=== PATIENT | female | born 1950 | race Caucasian/White ===

== ENCOUNTER 2016-08-04 16:11 | Inpatient (IN) | payer OTHER ==
[2016-08-04] VITALS (8 sets, daily range): BP systolic 150–220; BP diastolic 80–120
[~2016-08-04] VITALS: Ht 165.1 cm; Wt 66.8 kg
--- NOTE | ~2016-08-04 | CON ---
[place], [place] REPORT OF CONSULTATION [id number] UNIT #: [id number] ROOM: 401 DOCTOR: AMRIT BUCKLEYDELIOELISHA BIRTHDATE: [birth year] DOS: REQUESTING PHYSICIAN: Dr. De Paz. REASON FOR CONSULTATION: Hypertension, elevated cardiac enzymes. ASSESSMENT: 1. Current presentation with fall, mechanical, no preceding cardiac symptoms. 2. Similar complaint over the past few months of recurrent falls. 3. Elevated cardiac enzymes consistent more with rhabdomyolysis. 4. Slightly elevated troponin. 5. Hypertension. 6. Hyperlipidemia. 7. Active tobacco abuse. 8. Abnormal thyroid function test. PLAN: 1. Continue to cycle cardiac enzymes with 2 more sets. 2. Proceed with echocardiogram. 3. Lopressor 25 mg 1 tab p.o. b.i.d. 4. IV hydration. 5. Ischemic workup will be considered later on and can be done as an outpatient. 6. Management of thyroid. Management of the abnormal TSH will be deferred to Dr. De Paz. 7. Enteric-coated aspirin 81 mg. 8. Consider sleep study. It can be done as an outpatient. 9. Smoking cessation emphasized. 10. Early followup upon discharge within 2-4 weeks in our clinic in [place]. HISTORY OF PRESENT ILLNESS: The patient is a pleasant 66-year-old female unknown to our practice. The patient was brought back in to the hospital after a mechanical fall with tripping. Apparently, the patient had similar complaint about a month ago with recurrent falls and currently being considered for a care home. The patient was living alone ____ by herself. The patient denies at any time any history of chest pain, chest pressure, heaviness, tightness. Never had any jaw pain, left arm pain, or back pain. No symptomatic palpitation or any associated dizziness, lightheadedness or near syncope. No fever, no chills, no night sweats. Maintained good appetite, no weight loss. The patient is active, able to take care of herself. She sleeps on 1 pillow with no reported PND, orthopnea, or pedal edema. Unknown history of snoring. PAST MEDICAL HISTORY: As detailed in my assessment. SOCIAL HISTORY: The patient continued to smoke, has been doing this since she was 9 years old. Previous history of alcohol abuse, but no history of drug abuse. FAMILY HISTORY: There is no early family history of heart disease. [place], [place] REPORT OF CONSULTATION NAME: [facility]OLINA [facility]: [id number] UNIT #: [id number] ROOM: [facility] DOCTOR: LUCHO MARCUS MD BIRTHDATE: [birth year] CURRENT MEDICATIONS: Potassium, vitamin D, Synthroid, aspirin, Procardia, Lovenox, bisacodyl. ALLERGIES: The patient has no known drug allergies. REVIEW OF SYSTEMS: Currently, the patient denies any headache, diplopia or blurry vision. No fever, no chills, no night sweats. No abdominal pain, no bright red blood per rectum or tarry stools. The patient admits to joint pain and muscular pain. No anxiety, no depression. No polyuria, no polydipsia, no skin rash. PHYSICAL EXAMINATION: GENERAL: The patient is alert, oriented x3, quite pleasant. VITAL SIGNS: Blood pressure 158/80, heart rate 74, respiratory rate of 14, temperature 97.3. SUBJECTIVE: The patient completely flat in bed, does not appear in distress. HEENT: Extraocular muscles intact. Pupils equal, round, reactive to light. Conjunctivae: No pallor. Throat: No petechiae. NECK: Good upstroke. Faint bruit could be heard over the right carotid. No lymphadenopathy, no thyromegaly. HEART: S1, S2 with holosystolic murmur in the left upper sternal border. No rub or sternal heave. CHEST AND BACK: No deformities. LUNGS: Clear to auscultation. Decreased air movement. No nena wheezing or rales. ABDOMEN: Obese, soft, nontender. Present bowel sounds. Unable to appreciate any masses or bruits. LOWER EXTREMITIES: There is mild edema with faint distal pulses. NEUROLOGIC: Grossly nonfocal. SKIN: No significant rash. LABORATORY DATA: White count is 9.5, hemoglobin 10.9, potassium 3.3, creatinine 1.07, GFR is 51. Magnesium 1.8, AST 40. Initial CK is 3680, currently 3556. MB 3.9, currently 3.2. Troponin 0.059, currently 0.055; TSH 158, yesterday 178. Free T4 is 0.31. LUCHO MARCUS MD CM:CONSTR:REPORT OF CONSULTATION 1837 08/07/16 0114 interface
--- NOTE | ~2016-08-04 | PR ---
[place], [place] PROGRESS NOTE [facility]: [id number] UNIT #: [id number] ROOM: 401 DOCTOR: LUCHO MARCUS MD BIRTHDATE: [birth year] DOS: 08/07/2016 SUBJECTIVE: The patient is sitting up in chair. Denies any specific cardiac complaint. No chest pain, no dizziness, no shortness of breath. OBJECTIVE: VITAL SIGNS: Blood pressure 160/92, heart rate 71, respiratory rate of 14, temperature 97.6. NECK: Good upstroke, no JVD. HEART: S1, S2. No rub. LUNGS: Clear to auscultation. EXTREMITIES: Lower extremities, no significant edema. LABORATORY DATA: White count 9.5, hemoglobin 10.9. Potassium 3.3, creatinine 1.07, GFR is 51. CPK initially 3556, currently 2133. Troponin 0.055. Echocardiogram showed normal LV function with no wall motion abnormalities, but there is a large pericardial effusion. Still there are no early signs of tamponade. ASSESSMENT AND PLAN: Status post recurrent falls that appear to be preceding with being dizzy. Cardiac enzymes are consistent more with rhabdomyolysis. Still there is some concern about the elevated troponin, but this could be due to the patient's slight renal insufficiency. The echocardiogram showed a concerning finding of a large pericardial effusion, still there are no early signs of tamponade with mitral valve and tricuspid valve flow, but on the apical 4-chamber, the left atrium and the right ventricle in the short axis showing a hint of diastolic collapse. Given these findings, especially as the patient is living on her own, we will transfer the patient to for possible pericardial window. This was discussed with the resident and transfer will be arranged today. In the meantime, continue IV fluid, hold on long-acting blood pressure medication for now. LUCHO MARCUS MD CM:PNTRANS LUCHO MARCUS MD 08/07/16 2347 interface
[2016-08-04] MEDS ORDERED: LIPITOR20 MG PO (16:34)
[2016-08-04] MEDS ORDERED: PROCARDIA XL30 MG PO (16:34)
[2016-08-04] MEDS ORDERED: LEVOTHYROXINE0.1 MG PO (16:35)
[2016-08-04] MEDS ORDERED: HYDROCHLOROTH12.5 M2 PO (16:35)
[2016-08-04] MEDS ORDERED: VITAMIN D22000 UNIT PO (16:36)
[2016-08-04 18:04] LABS: BASO # 0.1 10*3/uL (0.0-0.1); BASO % 0.4 % (0.0-1.0); EOS % 0.2 % (1.0-4.0); HEMATOCRIT 37.9 % (37.0-47.0); HEMOGLOBIN 12.8 g/dl (12.0-16.0); IG # 0.1 10*3/uL (0.0-0.1); LYMPH # 1.9 10*3/uL (1.3-4.4); LYMPH % 15.2 % (27.0-41.0); MEAN CELL VOLUME 99.2 fl (81.0-99.0); MEAN CORPUSCULAR HGB 33.5 pg (27.0-31.0); MEAN CORPUSCULAR HGB CONC 33.8 g/dl (33.0-37.0); MEAN PLATELET VOLUME 10.1 fl (9.6-12.3); MONO # 0.7 10*3/uL (0.1-1.0); MONO % 5.7 % (3.0-9.0); NEUT # 9.8 10*3/uL (2.3-7.9); NEUT % 77.9 % (47.0-73.0); PLATELET COUNT AUTOMATED 264 10*3/uL (130-400); RED BLOOD COUNT 3.82 10*6/uL (4.10-5.10); RED CELL DISTRI WIDTH 14.3 % (0-14.5); WHITE BLOOD COUNT 12.5 10*3/uL (4.8-10.8)
[2016-08-04 18:15] LABS: PROTHROMBIN TIME 10.8 SECONDS (9.0-12.4)
[2016-08-04 18:24] LABS: ALBUMIN 4.2 gm/dl (3.1-4.5); BILIRUBIN, TOTAL 0.6 mg/dl (0.2-1.0); MAGNESIUM 2.4 mg/dL (1.5-2.1); POTASSIUM 3.6 mmol/L (3.5-5.1); TOTAL PROTEIN 7.6 gm/dL (6.4-8.2)
[2016-08-04 18:25] LABS: CKMB 4.8 ng/ml (0.5-3.6)
[2016-08-04 18:27] LABS: TROPONIN I 0.077 ng/ml (<0.045)
[2016-08-04 18:32] LABS: BILIRUBIN NEGATIVE (NEGATIVE); BLOOD 2+ (NEGATIVE); CLARITY CLEAR (CLEAR); COLOR YELLOW (YELLOW); GLUCOSE NEGATIVE (NEGATIVE); KETONE NEGATIVE (NEGATIVE); LEUKO ESTERASE NEGATIVE (NEGATIVE); NITRITE NEGATIVE (NEGATIVE); PROTEIN NEGATIVE (NEGATIVE); UROBILINOGEN 0.2 E.U./dl (0.2-1.0)
[2016-08-04 18:45] LABS: BACTERIA TRACE; URINE REFLEX COMMENT YES (NO)
[2016-08-04 18:46] LABS: EPITHELIAL CELLS 0-2; MUCOUS TRACE; RBC 31-40 rbc/hpf (0-2); WBC 0-2 wbc/hpf (0-5)
[2016-08-05] VITALS: BP 167/77
[2016-08-05 04:00] VITALS: BP 200/108
[2016-08-05 07:29] LABS: BASO % 0.3 % (0.0-1.0); EOS # 0.1 10*3/uL (0.0-0.4); HEMATOCRIT 35.6 % (37.0-47.0); HEMOGLOBIN 12.1 g/dl (12.0-16.0); IG # 0.1 10*3/uL (0.0-0.1); LYMPH # 2.1 10*3/uL (1.3-4.4); LYMPH % 20.4 % (27.0-41.0); MEAN CELL VOLUME 99.4 fl (81.0-99.0); MEAN CORPUSCULAR HGB 33.8 pg (27.0-31.0); MEAN PLATELET VOLUME 10.1 fl (9.6-12.3); MONO # 0.5 10*3/uL (0.1-1.0); MONO % 5.3 % (3.0-9.0); NEUT # 7.4 10*3/uL (2.3-7.9); NEUT % 72.1 % (47.0-73.0); PLATELET COUNT AUTOMATED 242 10*3/uL (130-400); RED BLOOD COUNT 3.58 10*6/uL (4.10-5.10); RED CELL DISTRI WIDTH 14.2 % (0-14.5); WHITE BLOOD COUNT 10.2 10*3/uL (4.8-10.8)
[2016-08-05 07:41] LABS: CKMB 3.6 ng/ml (0.5-3.6)
[2016-08-05 07:47] LABS: TROPONIN I 0.076 ng/ml (<0.045)
[2016-08-05 07:58] LABS: ALBUMIN 3.7 gm/dl (3.1-4.5); MAGNESIUM 2.2 mg/dL (1.5-2.1); POTASSIUM 2.9 mmol/L (3.5-5.1)
[2016-08-05 08:00] VITALS: BP 157/89
[2016-08-05 08:07] LABS: FOLIC ACID 19.49 ng/mL (>5.38)
[2016-08-05 08:24] LABS: BILIRUBIN, TOTAL 0.5 mg/dl (0.2-1.0); FREE T4 0.21 ng/dl (0.76-1.46); PHOSPHOROUS 1.6 mg/dL (2.5-4.9); TOTAL PROTEIN 6.8 gm/dL (6.4-8.2)
[2016-08-05 12:00] VITALS: BP 159/96
[2016-08-05 12:19] LABS: CKMB 3.9 ng/ml (0.5-3.6)
[2016-08-05 12:32] LABS: TROPONIN I 0.059 ng/ml (<0.045)
[2016-08-05 16:00] VITALS: BP 147/82
[2016-08-05 18:17] LABS: CKMB 3.2 ng/ml (0.5-3.6)
[2016-08-05 18:45] LABS: TROPONIN I 0.055 ng/ml (<0.045)
[2016-08-05 20:00] VITALS: BP 162/93
[2016-08-06] VITALS: BP 152/81
[2016-08-06 07:19] LABS: BASO % 0.4 % (0.0-1.0); EOS # 0.1 10*3/uL (0.0-0.4); EOS % 1.5 % (1.0-4.0); HEMATOCRIT 32.8 % (37.0-47.0); HEMOGLOBIN 10.9 g/dl (12.0-16.0); IG # 0.1 10*3/uL (0.0-0.1); LYMPH # 2.9 10*3/uL (1.3-4.4); LYMPH % 30.3 % (27.0-41.0); MEAN CELL VOLUME 100.6 fl (81.0-99.0); MEAN CORPUSCULAR HGB 33.4 pg (27.0-31.0); MEAN CORPUSCULAR HGB CONC 33.2 g/dl (33.0-37.0); MEAN PLATELET VOLUME 10.7 fl (9.6-12.3); MONO # 0.7 10*3/uL (0.1-1.0); MONO % 7.4 % (3.0-9.0); NEUT # 5.6 10*3/uL (2.3-7.9); NEUT % 59.4 % (47.0-73.0); PLATELET COUNT AUTOMATED 239 10*3/uL (130-400); RED BLOOD COUNT 3.26 10*6/uL (4.10-5.10); RED CELL DISTRI WIDTH 14.5 % (0-14.5); WHITE BLOOD COUNT 9.5 10*3/uL (4.8-10.8)
[2016-08-06 07:58] LABS: ALBUMIN 3.2 gm/dl (3.1-4.5); ALKALINE PHOSPHATASE 49 U/L (45-117); BILIRUBIN, TOTAL 0.4 mg/dl (0.2-1.0); BUN 15 mg/dl (7-24); CARBON DIOXIDE 22 mmol/L (21-32); CHLORIDE 109 mmol/L (98-107); EST GLOM FILT AFRICAN AMERICAN > 60 ml/min; GLUCOSE 76 mg/dL (65-99); MAGNESIUM 1.8 mg/dL (1.5-2.1); PHOSPHOROUS 2.6 mg/dL (2.5-4.9); POTASSIUM 3.3 mmol/L (3.5-5.1); SGOT/AST 40 IU/L (3-35); SGPT/ALT 15 U/L (12-78); SODIUM 142 mmol/L (136-145)
[2016-08-06 08:00] VITALS: BP 154/84
[2016-08-06 08:24] LABS: FREE T4 0.31 ng/dl (0.76-1.46)
[2016-08-06 12:00] VITALS: BP 151/81
[2016-08-06 16:00] VITALS: BP 158/80
[2016-08-06 20:00] VITALS: BP 156/87
[2016-08-07] VITALS: BP 150/80
[2016-08-07 06:09] LABS: FREE T4 0.35 ng/dl (0.76-1.46)
[2016-08-07 08:00] VITALS: BP 160/92
[2016-08-07] MEDS ORDERED: ENOXAPARIN40 MG/0.2 SC (10:02)
[2016-08-07] MEDS ORDERED: NOVAPLUS LEVO100 MCG IV (10:02)
[2016-08-07] MEDS ORDERED: METOPROLOL SUCC25 M2 PO (10:02)
[2016-08-07] MEDS ORDERED: ASPIRIN325 MG PO (10:02)
[2016-08-07] MEDS ORDERED: D-1000 185 MG-11 TAB PO (10:02)
== END 2016-08-07 11:08 | disposition short-term general hospital (02) | DRG 64 ==
LOC: ED 16:11 → EDHOLD 19:47 → 4E 19:47
PROVIDERS: Internal Medicine; Registered Nurse; Student in an Organized Health Care Education/Training Program
DX: I63.9 Cerebral infarction, unspecified (principal); N17.0 Acute kidney failure with tubular necrosis; I16.1 Hypertensive emergency; I31.3 Pericardial effusion (noninflammatory); R07.9 Chest pain, unspecified; T79.6XXA Traumatic ischemia of muscle, initial encounter; Z66 Do not resuscitate; I10 Essential (primary) hypertension; E55.9 Vitamin D deficiency, unspecified; E78.5 Hyperlipidemia, unspecified; F17.200 Nicotine dependence, unspecified, uncomplicated; E87.6 Hypokalemia; I16.0 Hypertensive urgency; W19.XXXA Unspecified fall, initial encounter; E78.1 Pure hyperglyceridemia; E03.9 Hypothyroidism, unspecified; Z91.19 Patient's noncompliance with other medical treatment and regimen; Z71.6 Tobacco abuse counseling; Z79.899 Other long term (current) drug therapy; Z82.49 Family history of ischemic heart disease and other diseases of the circulatory system; Z81.1 Family history of alcohol abuse and dependence; Y93.89 Activity, other specified; Y92.098 Other place in other non-institutional residence as the place of occurrence of the external cause; Y99.8 Other external cause status

== ENCOUNTER 2016-10-04 14:35 | Inpatient (IN) | payer OTHER ==
[~2016-10-04] VITALS: Ht 162.5 cm; Wt 50.8 kg
[~2016-10-04 14:35] MED LIST: ASPIRIN325 MG PO; D-1000 185 MG-11 TAB PO; ENOXAPARIN40 MG/0.2 SC; HYDROCHLOROTH12.5 M2 PO; LEVOTHYROXINE0.1 MG PO; LIPITOR20 MG PO; METOPROLOL SUCC25 M2 PO; NOVAPLUS LEVO100 MCG IV; PROCARDIA XL30 MG PO; VITAMIN D22000 UNIT PO
[2016-10-04 15:10] VITALS: BP 195/95
[2016-10-04 15:29] LABS: BASO # 0.1 10*3/uL (0.0-0.1); BASO % 0.4 % (0.0-1.0); EOS # 0.1 10*3/uL (0.0-0.4); EOS % 0.6 % (1.0-4.0); HEMATOCRIT 33.6 % (37.0-47.0); HEMOGLOBIN 10.7 g/dl (12.0-16.0); IG # 0.2 10*3/uL (0.0-0.1); LYMPH # 2.1 10*3/uL (1.3-4.4); LYMPH % 17.5 % (27.0-41.0); MEAN CELL VOLUME 89.4 fl (81.0-99.0); MEAN CORPUSCULAR HGB 28.5 pg (27.0-31.0); MEAN CORPUSCULAR HGB CONC 31.8 g/dl (33.0-37.0); MEAN PLATELET VOLUME 9.9 fl (9.6-12.3); MONO % 8.4 % (3.0-9.0); NEUT # 8.5 10*3/uL (2.3-7.9); NEUT % 71.8 % (47.0-73.0); PLATELET COUNT AUTOMATED 436 10*3/uL (130-400); RED BLOOD COUNT 3.76 10*6/uL (4.10-5.10); RED CELL DISTRI WIDTH 15.7 % (0-14.5); WHITE BLOOD COUNT 11.9 10*3/uL (4.8-10.8)
[2016-10-04 15:38] LABS: PROTHROMBIN TIME 10.7 SECONDS (9.0-12.4)
[2016-10-04 15:46] LABS: ALBUMIN 3.3 gm/dl (3.1-4.5); BILIRUBIN, TOTAL 0.4 mg/dl (0.2-1.0); C-REACTIVE PROTEIN 0.66 MG/DL (0-0.3); CKMB 0.6 ng/ml (0.5-3.6); MAGNESIUM 1.9 mg/dL (1.5-2.1); TOTAL PROTEIN 7.3 gm/dL (6.4-8.2); TROPONIN I 0.023 ng/ml (<0.045)
[2016-10-04 16:23] LABS: BILIRUBIN NEGATIVE (NEGATIVE); BLOOD 2+ (NEGATIVE); CLARITY CLEAR (CLEAR); COLOR YELLOW (YELLOW); GLUCOSE NEGATIVE (NEGATIVE); KETONE 1+ (NEGATIVE); LEUKO ESTERASE NEGATIVE (NEGATIVE); NITRITE NEGATIVE (NEGATIVE); PROTEIN 1+ (NEGATIVE)
[2016-10-04 16:50] LABS: BACTERIA TRACE; HYALINE CAST 0-2; URINE REFLEX COMMENT YES (NO)
[2016-10-04 17:55] VITALS: BP 177/91
[2016-10-04] MEDS ORDERED: Synthroid,Lev125 MCG PO (18:10)
[2016-10-04] MEDS ORDERED: PROCARDIA XL90 MG PO (18:11)
[2016-10-04] MEDS ORDERED: TOPROL XL25 MG PO (18:11)
[2016-10-04 20:00] VITALS: BP 169/79
[2016-10-05] VITALS: BP 130/69
[2016-10-05 06:50] LABS: BASO % 0.3 % (0.0-1.0); EOS # 0.2 10*3/uL (0.0-0.4); EOS % 1.7 % (1.0-4.0); HEMOGLOBIN 9.3 g/dl (12.0-16.0); IG # 0.2 10*3/uL (0.0-0.1); LYMPH # 2.1 10*3/uL (1.3-4.4); LYMPH % 21.1 % (27.0-41.0); MEAN CELL VOLUME 91.5 fl (81.0-99.0); MEAN CORPUSCULAR HGB 28.4 pg (27.0-31.0); MEAN PLATELET VOLUME 9.5 fl (9.6-12.3); MONO # 0.9 10*3/uL (0.1-1.0); MONO % 9.4 % (3.0-9.0); NEUT # 6.5 10*3/uL (2.3-7.9); NEUT % 65.8 % (47.0-73.0); PLATELET COUNT AUTOMATED 368 10*3/uL (130-400); RED BLOOD COUNT 3.28 10*6/uL (4.10-5.10); RED CELL DISTRI WIDTH 15.8 % (0-14.5); WHITE BLOOD COUNT 9.9 10*3/uL (4.8-10.8)
[2016-10-05 07:00] LABS: ALBUMIN 2.7 gm/dl (3.1-4.5); BILIRUBIN, TOTAL 0.2 mg/dl (0.2-1.0); MAGNESIUM 1.8 mg/dL (1.5-2.1); PHOSPHOROUS 4.1 mg/dL (2.5-4.9); POTASSIUM 2.7 mmol/L (3.5-5.1); TOTAL PROTEIN 5.8 gm/dL (6.4-8.2)
[2016-10-05 08:00] VITALS: BP 144/78
[2016-10-05 08:09] LABS: THYROID STIM HORMONE (HS) 0.48 uIU/ml (0.358-4.75)
[2016-10-05 12:00] VITALS: BP 154/79
[2016-10-05 16:00] VITALS: BP 119/62
[2016-10-05 20:00] VITALS: BP 144/65
[2016-10-06] VITALS: BP 151/66
[2016-10-06 06:21] LABS: BASO # 0.1 10*3/uL (0.0-0.1); BASO % 0.6 % (0.0-1.0); EOS # 0.3 10*3/uL (0.0-0.4); HEMATOCRIT 32.1 % (37.0-47.0); HEMOGLOBIN 9.7 g/dl (12.0-16.0); IG # 0.2 10*3/uL (0.0-0.1); LYMPH # 1.9 10*3/uL (1.3-4.4); MEAN CELL VOLUME 92.8 fl (81.0-99.0); MEAN CORPUSCULAR HGB CONC 30.2 g/dl (33.0-37.0); MONO # 0.8 10*3/uL (0.1-1.0); MONO % 9.5 % (3.0-9.0); NEUT # 5.6 10*3/uL (2.3-7.9); NEUT % 63.2 % (47.0-73.0); PLATELET COUNT AUTOMATED 406 10*3/uL (130-400); RED BLOOD COUNT 3.46 10*6/uL (4.10-5.10); RED CELL DISTRI WIDTH 16.1 % (0-14.5); WHITE BLOOD COUNT 8.8 10*3/uL (4.8-10.8)
[2016-10-06 06:35] LABS: HEMOGLOBIN A1c 4.8 % (4.8-5.6)
[2016-10-06 06:42] LABS: POTASSIUM 3.3 mmol/L (3.5-5.1)
[2016-10-06 08:00] VITALS: BP 145/63
[2016-10-06 12:00] VITALS: BP 150/77
[2016-10-06 16:00] VITALS: BP 152/82
[2016-10-06 20:00] VITALS: BP 186/74
[2016-10-07] VITALS: BP 186/74; BP 189/87
[2016-10-07 04:00] VITALS: BP 165/82
[2016-10-07 06:50] LABS: BASO % 0.3 % (0.0-1.0); EOS # 0.3 10*3/uL (0.0-0.4); HEMATOCRIT 28.8 % (37.0-47.0); HEMOGLOBIN 8.9 g/dl (12.0-16.0); IG # 0.1 10*3/uL (0.0-0.1); LYMPH # 1.8 10*3/uL (1.3-4.4); LYMPH % 20.9 % (27.0-41.0); MEAN CELL VOLUME 93.5 fl (81.0-99.0); MEAN CORPUSCULAR HGB 28.9 pg (27.0-31.0); MEAN CORPUSCULAR HGB CONC 30.9 g/dl (33.0-37.0); MEAN PLATELET VOLUME 9.8 fl (9.6-12.3); MONO # 0.9 10*3/uL (0.1-1.0); MONO % 9.9 % (3.0-9.0); NEUT # 5.6 10*3/uL (2.3-7.9); NEUT % 64.8 % (47.0-73.0); PLATELET COUNT AUTOMATED 367 10*3/uL (130-400); RED BLOOD COUNT 3.08 10*6/uL (4.10-5.10); RED CELL DISTRI WIDTH 16.1 % (0-14.5); WHITE BLOOD COUNT 8.7 10*3/uL (4.8-10.8)
[2016-10-07 07:23] LABS: MAGNESIUM 1.6 mg/dL (1.5-2.1); POTASSIUM 3.8 mmol/L (3.5-5.1)
[2016-10-07 08:00] VITALS: BP 166/80
[2016-10-07] MEDS ORDERED: SIMVASTATIN20 MG PO (12:53)
== END 2016-10-07 13:56 | disposition home health service (06) | DRG 682 ==
LOC: ED 14:35 → 5E 17:18 → EDHOLD 17:18 → 5E 17:43
PROVIDERS: Emergency Medicine; Family Medicine; Internal Medicine; Internal Medicine Hospice and Palliative Medicine
DX: N17.0 Acute kidney failure with tubular necrosis (principal); E43 Unspecified severe protein-calorie malnutrition; I50.32 Chronic diastolic (congestive) heart failure; I11.0 Hypertensive heart disease with heart failure; I31.3 Pericardial effusion (noninflammatory); I69.354 Hemiplegia and hemiparesis following cerebral infarction affecting left non-dominant side; E86.0 Dehydration; N30.01 Acute cystitis with hematuria; I16.1 Hypertensive emergency; Z68.1 Body mass index [BMI] 19.9 or less, adult; E55.9 Vitamin D deficiency, unspecified; Z66 Do not resuscitate; Z51.5 Encounter for palliative care; I10 Essential (primary) hypertension; E78.5 Hyperlipidemia, unspecified; R29.6 Repeated falls; E03.9 Hypothyroidism, unspecified; E87.6 Hypokalemia; D47.3 Essential (hemorrhagic) thrombocythemia; D64.9 Anemia, unspecified; F17.210 Nicotine dependence, cigarettes, uncomplicated; Z79.899 Other long term (current) drug therapy; Z81.1 Family history of alcohol abuse and dependence; Z82.49 Family history of ischemic heart disease and other diseases of the circulatory system

== ENCOUNTER → 2016-11-10 | Outpatient (CLI) | payer OTHER ==
[~2016-11-10] MED LIST changes: +PROCARDIA XL90 MG PO; +SIMVASTATIN20 MG PO; +Synthroid,Lev125 MCG PO; +TOPROL XL25 MG PO
== END | disposition home or self-care (01) ==
LOC: US 12:28
DX: I65.23 Occlusion and stenosis of bilateral carotid arteries (principal)

== ENCOUNTER 2016-12-12 22:44 | Inpatient (IN) | payer OTHER ==
[~2016-12-12] VITALS: Ht 162.5 cm; Wt 49.9 kg
[2016-12-12 22:51] VITALS: BP 147/78
[2016-12-12 23:37] LABS: BILIRUBIN NEGATIVE (NEGATIVE); BLOOD 3+ (NEGATIVE); CLARITY SL CLOUDY (CLEAR); COLOR YELLOW (YELLOW); GLUCOSE NEGATIVE (NEGATIVE); KETONE NEGATIVE (NEGATIVE); LEUKO ESTERASE TRACE (NEGATIVE); NITRITE NEGATIVE (NEGATIVE); PH 5.5 (5.0-9.0); UROBILINOGEN 0.2 E.U./dl (0.2-1.0)
[2016-12-12 23:47] LABS: BACTERIA 3+; EPITHELIAL CELLS 25-30; RBC TNTC rbc/hpf (0-2)
[2016-12-12 23:53] LABS: HEMATOCRIT 31.9 % (37.0-47.0); HEMOGLOBIN 10.2 g/dl (12.0-16.0); MEAN CELL VOLUME 84.8 fl (81.0-99.0); MEAN CORPUSCULAR HGB 27.1 pg (27.0-31.0); MEAN PLATELET VOLUME 9.3 fl (9.6-12.3); PLATELET COUNT AUTOMATED 601 10*3/uL (130-400); RED BLOOD COUNT 3.76 10*6/uL (4.10-5.10); RED CELL DISTRI WIDTH 15.4 % (0-14.5); WHITE BLOOD COUNT 19.1 10*3/uL (4.8-10.8)
[2016-12-13 00:11] LABS: INTERNATIONAL NORM RATIO 0.9 (2.0-3.5)
[2016-12-13 00:12] LABS: ALBUMIN 2.5 gm/dl (3.1-4.5); ALKALINE PHOSPHATASE 95 U/L (45-117); BUN 35 mg/dl (7-24); CHLORIDE 99 mmol/L (98-107); CREATININE 1.98 mg/dL (0.55-1.02); LIPASE 76 U/L (73-393); POTASSIUM 2.9 mmol/L (3.5-5.1); SGOT/AST 11 IU/L (3-35); SGPT/ALT 11 U/L (12-78); SODIUM 133 mmol/L (136-145); TOTAL PROTEIN 6.3 gm/dL (6.4-8.2)
[2016-12-13 00:13] LABS: TROPONIN I < 0.015 ng/ml (<0.045)
[2016-12-13 00:17] LABS: PLATELET SUFFICIENCY HIGH (NORMAL); TOTAL CELLS COUNTED 100 #CELLS
[2016-12-13 00:18] LABS: BURR CELLS FEW; POLYCHROMASIA SLIGHT
[2016-12-13 02:15] VITALS: BP 166/86
--- NOTE | 2016-12-13 02:18 | NUR ---
A 66, admitted to , under the services of ZULEIKA Ambrosio DO with a diagnosis of COLITIS. Chief complaint is WEAKNESS. Patient arrived via stretcher from ER. Monitor applied. Initial assessment completed. Vital signs taken and recorded. ZULEIKA AMBROSIO DO notified of admission to the unit. Orders received. See assessment for past medical history, medications and allergies. Patient and/or family oriented to unit. [facility] visitation policy reviewed. Clothing/patient valuable form completed. HARJINDER WESTFALL
--- NOTE | 2016-12-13 02:18 | NUR ---
MED REC UPDATED WITH SISTER AND NIECE.
--- NOTE | 2016-12-13 02:47 | NUR ---
DR MENON AWARE OF PATIENT'S SKIN TEAR. NO ORDERS
[2016-12-13] MEDS ORDERED: ASPIRIN ADULT L81 M2 PO (02:49)
[2016-12-13] MEDS ORDERED: VITAMIN D-32000 UNI1 PO (02:49)
[2016-12-13] MEDS ORDERED: FERROUS SULFAT325 MG PO (02:50)
[2016-12-13] MEDS ORDERED: POTASSIUM CHLO10 ME4 PO (03:00)
--- NOTE | 2016-12-13 03:35 | NUR ---
SPOKE WITH KARTIK ABOUT PATIENT'S CODE STATUS. SISTER STATES THAT PATIENT IS A COMFORT CARE ARREST, NO INTUBATION, NO ACLS.
[2016-12-13 06:07] LABS: BASO % 0.3 % (0.0-1.0); EOS # 0.1 10*3/uL (0.0-0.4); EOS % 0.8 % (1.0-4.0); HEMATOCRIT 32.2 % (37.0-47.0); HEMOGLOBIN 10.2 g/dl (12.0-16.0); LYMPH # 1.6 10*3/uL (1.3-4.4); LYMPH % 10.6 % (27.0-41.0); MEAN CELL VOLUME 87.5 fl (81.0-99.0); MEAN CORPUSCULAR HGB 27.7 pg (27.0-31.0); MEAN CORPUSCULAR HGB CONC 31.7 g/dl (33.0-37.0); MEAN PLATELET VOLUME 9.5 fl (9.6-12.3); MONO # 1.2 10*3/uL (0.1-1.0); MONO % 7.7 % (3.0-9.0); NEUT # 11.8 10*3/uL (2.3-7.9); NEUT % 79.1 % (47.0-73.0); PLATELET COUNT AUTOMATED 586 10*3/uL (130-400); RED BLOOD COUNT 3.68 10*6/uL (4.10-5.10); RED CELL DISTRI WIDTH 15.3 % (0-14.5); WHITE BLOOD COUNT 14.9 10*3/uL (4.8-10.8)
[2016-12-13 06:37] LABS: ALBUMIN 2.2 gm/dl (3.1-4.5); MAGNESIUM 1.9 mg/dL (1.5-2.1)
[2016-12-13 06:47] LABS: ACT PARTIAL THROMBO TIME 26.6 SECONDS (20.8-31.5); INTERNATIONAL NORM RATIO 0.9 (2.0-3.5)
[2016-12-13 06:48] LABS: CREATININE 2.17 mg/dL (0.55-1.02); FREE T4 2.53 ng/dl (0.76-1.46); PHOSPHOROUS 3.4 mg/dL (2.5-4.9); THYROID STIM HORMONE (HS) 0.13 uIU/ml (0.358-4.75); TOTAL PROTEIN 5.7 gm/dL (6.4-8.2)
[2016-12-13 07:47] LABS: VITAMIN D, 25-HYDROXY 41.5 ng/mL (30-100)
[2016-12-13 08:00] VITALS: BP 162/78
[2016-12-13 12:00] VITALS: BP 142/60; BP 176/82
--- NOTE | 2016-12-13 12:00 | NUR ---
PATIENT RESTING AT THIS TIME WITH FAMILY PRESENT. DENIES ANY NEEDS. CALL LIGHT IN REACH.
[2016-12-13 16:00] VITALS: BP 160/80
[2016-12-13 20:00] VITALS: BP 177/82
[2016-12-14] VITALS (7 sets, daily range): BP systolic 148–180; BP diastolic 64–90
--- NOTE | 2016-12-14 00:37 | NUR ---
MANUAL BP OBTAINED, 180/90. DR. MENON NOTIFIED. ORDERS RECEIVED.
--- NOTE | 2016-12-14 02:05 | NUR ---
PT C/O BACK PAIN, RATING IT A 7/10. PT REPOSITIONED, INEFFECTIVE. DILAUDID ADMINISTERED VIA IV. WILL MONITOR FOR EFFECTIVENESS. CALL LIGHT IN REACH.
--- NOTE | 2016-12-14 03:05 | NUR ---
DILAUDID EFFECTIVE PER PT. PT STATES THAT SHE HAS NO PAIN AT THIS TIME, CALL LIGHT IN REACH.
--- NOTE | 2016-12-14 03:21 | NUR ---
24 HR chart check completed.
[2016-12-14 06:08] LABS: ALBUMIN 1.9 gm/dl (3.1-4.5); CREATININE 2.49 mg/dL (0.55-1.02); MAGNESIUM 1.8 mg/dL (1.5-2.1); PHOSPHOROUS 3.1 mg/dL (2.5-4.9); POTASSIUM 2.9 mmol/L (3.5-5.1); TOTAL PROTEIN 5.1 gm/dL (6.4-8.2)
[2016-12-14 06:15] LABS: BASO # 0.1 10*3/uL (0.0-0.1); BASO % 0.4 % (0.0-1.0); EOS # 0.3 10*3/uL (0.0-0.4); EOS % 1.9 % (1.0-4.0); HEMATOCRIT 29.5 % (37.0-47.0); HEMOGLOBIN 9.4 g/dl (12.0-16.0); LYMPH # 1.8 10*3/uL (1.3-4.4); LYMPH % 13.7 % (27.0-41.0); MEAN CELL VOLUME 87.3 fl (81.0-99.0); MEAN CORPUSCULAR HGB 27.8 pg (27.0-31.0); MEAN CORPUSCULAR HGB CONC 31.9 g/dl (33.0-37.0); MEAN PLATELET VOLUME 9.5 fl (9.6-12.3); MONO # 1.4 10*3/uL (0.1-1.0); MONO % 10.2 % (3.0-9.0); NEUT # 9.7 10*3/uL (2.3-7.9); NEUT % 71.9 % (47.0-73.0); PLATELET COUNT AUTOMATED 592 10*3/uL (130-400); RED BLOOD COUNT 3.38 10*6/uL (4.10-5.10); RED CELL DISTRI WIDTH 15.5 % (0-14.5); WHITE BLOOD COUNT 13.4 10*3/uL (4.8-10.8)
--- NOTE | 2016-12-14 06:30 | NUR ---
CT NOTIFIED THIS NURSE THAT PT COULD NOT HAVE IV CONTRAST FOR CT OF ABDOMEN AND PELVIS DUE TO CREATININE LEVEL. DR. MENON NOTIFIED AND CANCELED CT. STATES THAT HE WOULD LIKE US TO MONITOR PT BP AND BACK PAIN THROUGHOUT DAY. NOTIFIED DR. MENON OF POTASSIUM LEVEL OF 2.9. ORDERS RECEIVED.
--- NOTE | 2016-12-14 18:06 | NUR ---
PT REFUSES TO GET OOB TO A CHAIR
[2016-12-14] MEDS ORDERED: Synthroid,Lev100 MCG PO (19:38)
--- NOTE | 2016-12-14 19:38 | NUR ---
SPOKE TO DR. RAI AT THIS TIME REGARDING CALL FROM [facility] STATING THAT THEY HAVE A BED AND ACCEPTING DOCTOR FOR THIS PT. ACCORDING TO DR. RAI, THIS IS FOR A UROLOGY CONSULT AND THAT HE WILL PUT D/C ORDERS IN.
--- NOTE | 2016-12-14 19:58 | NUR ---
@1944 SPOKE WITH PT. REGARDING TRANSFER. PT. STATED THAT NOBODY DISCUSSED A TRANSFER WITH HER AT ALL TODAY, AND SHE IS REFUSING TO BE TRANSFERRED AT NIGHT. @[address] RAI TO DISCUSS PTS. FEELINGS TOWARDS D/C. DR. RAI STATED THAT SHE COULD LOSE THE BED IF SHE DOES NOT GO TONIGHT. @1954 PT. WAS TOLD THAT SHE COULD LOSE THE BED IF SHE DID NOT GO TONIGHT. PT. HAD THIS NURSE CONTACT HER SISTER TO DISCUSS THIS NEWS. PTS. SISTER WAS NOT AWARE OF D/C EITHER. PTS. SISTER STATED SHE WILL BE DOWN SHORTLY. PT. STATED SHE WOULD WAIT UNTIL HER SISTER CAME TO DECIDE IF SHE WOULD GO TONIGHT OR NOT.
--- NOTE | 2016-12-14 20:00 | NUR ---
PT. AWAKE, ALERT AND ORIENTED X 3. PT. IN BED AT THIS TIME. PT. CURRENTLY DENIES CP, SOB, AND PAIN AT THIS TIME. CALL LIGHT WITHIN REACH, BED IN LOWEST POSITION, WHEELS LOCKED. SEE SHIFT ASSESSMENT.
--- NOTE | 2016-12-14 22:10 | NUR ---
GAVE REPORT TO [place] AT [facility]
== END 2016-12-14 22:10 | disposition short-term general hospital (02) | DRG 871 ==
LOC: ED 22:44 → 4E 12-13 00:52 → EDHOLD 12-13 00:52 → 4E 12-13 01:18
PROVIDERS: Hospitalist; Physician Assistant; ADMIT Internal Medicine
DX: A41.9 Sepsis, unspecified organism (principal); N17.0 Acute kidney failure with tubular necrosis; E43 Unspecified severe protein-calorie malnutrition; I50.32 Chronic diastolic (congestive) heart failure; I11.0 Hypertensive heart disease with heart failure; E86.0 Dehydration; E87.1 Hypo-osmolality and hyponatremia; N39.0 Urinary tract infection, site not specified; Z68.1 Body mass index [BMI] 19.9 or less, adult; Z66 Do not resuscitate; Z51.5 Encounter for palliative care; R65.20 Severe sepsis without septic shock; K52.9 Noninfective gastroenteritis and colitis, unspecified; E78.5 Hyperlipidemia, unspecified; E87.6 Hypokalemia; D47.3 Essential (hemorrhagic) thrombocythemia; D64.9 Anemia, unspecified; R29.6 Repeated falls; E55.9 Vitamin D deficiency, unspecified; Z87.891 Personal history of nicotine dependence; Z82.49 Family history of ischemic heart disease and other diseases of the circulatory system; Z79.82 Long term (current) use of aspirin; Z79.899 Other long term (current) drug therapy; Z86.73 Personal history of transient ischemic attack (TIA), and cerebral infarction without residual deficits

== ENCOUNTER 2017-01-25 11:01 | Inpatient (IN) | payer OTHER ==
[~2017-01-25] VITALS: Ht 152.4 cm; Wt 46.5 kg
--- NOTE | ~2017-01-25 | PR ---
[place], [place] PROGRESS NOTE NAME: DOV MOLINA UNIT #: [id number] ROOM: 518 DOCTOR: ABIEL DASH MD BIRTHDATE: [birth year] DOS: 01/27/2017 SUBJECTIVE: The patient states her diarrhea is stopping now and no abdominal pains. The patient is still feeling very weak, but starting to eat slightly better. OBJECTIVE: VITAL SIGNS: Blood pressure 131/77, heart rate 86 beats per minute, breathing 20 times per minute, temperature of 98 degrees Fahrenheit. GENERAL APPEARANCE: The patient is alert and oriented x 3, in no visible distress, except for generalized weakness. HEENT AND NECK: Exam within normal limits. CARDIOVASCULAR SYSTEM: Heart rate is regular in rate and rhythm. S1 and S2 normally audible. LUNGS: Clear to auscultation. ABDOMEN: Soft, nontender. No obvious organomegaly. Bowel sounds are present. EXTREMITIES: Without significant cyanosis or edema. IMPRESSION 0: 1. Acute Clostridium difficile colitis with improving diarrhea. No leukocytosis. Continue her vancomycin and Flagyl. This appears to be the first recurrence of Clostridium difficile colitis. 2. Generalized weakness and disability. The patient requires fci placement. She was living at home with her sister. 3. Severe hypokalemia related to diarrhea, improving with supplements and improvement in diarrhea. 4. Severe protein calorie malnutrition and adult failure to thrive with suboptimal prognosis. Palliative care consult was obtained. 5. Anemia of chronic disease. Hemoglobin stable. 6. Sepsis from Clostridium difficile colitis with elevation of lactic acid level, leukocytosis, hypokalemia and acute kidney failure, all improving. 7. Chronic diastolic type congestive heart failure, compensated. 8. Urinary tract infection with Klebsiella pneumoniae and Enterococcus faecalis, to be treated with ciprofloxacin. The patient's Rocephin was discontinued. [place], [place] PROGRESS NOTE NAME: DOV MOLINA UNIT #: [id number] ROOM: 518 DOCTOR: ABIEL DASH MD BIRTHDATE: [birth year] ABIEL DASH MD CM:PNTRANS [id number] ABIEL DASH MD 01/27/17 1128 interface
--- NOTE | ~2017-01-25 | CON ---
[place], [place] REPORT OF CONSULTATION [id number] #: [id number] ROOM: 518 DOCTOR: GALILEO BUCKLEY,SHARA BIRTHDATE: [birth year] DOS: 01/25/2017 This note is an addendum to the note dictated by Dr. Hudson Carvalho. I personally examined and assessed the patient today. Past medical history, medications and allergies reviewed and I personally examined and assessed the patient. The case was discussed with the physician, Dr. Carvalho. Dr. Carvalho's examination, assessment and recommendations reflects my work. The patient was admitted for generalized weakness, decreased intake and diarrhea and Cardiology was consulted for elevated troponin and also edema. She has history of hypertension, anemia, TIA, recent pericardial window, noncompliance with medications. She was treated with intravenous IV fluids due to possible dehydration. PHYSICAL EXAMINATION: The patient is alert. Denies any chest pain or shortness of breath. There are few basilar rales. The patient had about 2 to 3+ pitting edema. HEART: Showed regular rhythm. No significant murmurs. No palpable thrills. DIAGNOSTIC IMPRESSION: Includes: 1. Chronic diastolic heart failure. 2. Dehydration. 3. Diarrhea, rule out Clostridium difficile diarrhea. 4. Recent pericardial window for pericardial effusion. 5. Anasarca. 6. History of transient ischemic attack. 7. History of noncompliance. RECOMMENDATIONS: 1. Continue IV fluids. 2. I would consider starting diuretics tomorrow. Today, she appears to be clinically dehydrated and she is third spacing her fluids due to low albumin. 3. No further cardiac testing and discussed with her family member who is at bedside. This note is again an addendum to the note dictated by the resident physician, Dr. Hudson Carvalho. SHARA GURROLA MD CM:CONSTR:REPORT OF CONSULTATION 2217 01/27/17 0228 interface
--- NOTE | ~2017-01-25 | PR ---
[place], [place] PROGRESS NOTE NAME: DOV MOLINA UNIT #: [id number] ROOM: 518 DOCTOR: JONAS JACKSON MD BIRTHDATE: [birth year] DOS: SUBJECTIVE: The patient continues to have diarrhea. OBJECTIVE: VITAL SIGNS: Blood pressure is 134/61, pulse of 83, respirations 20, temperature 98.3. LUNGS: Clear. HEART: Regular. ABDOMEN: Soft. EXTREMITIES: Without any edema. ASSESSMENT AND PLAN: 1. Clostridium difficile diarrhea on p.o. vancomycin. 2. Severe hypokalemia supplementation, both IV and p.o. has been ordered. 3. Urinary tract infection with Enterococcus faecalis and Klebsiella pneumoniae covered by Levaquin, which is continued. 4. Adult failure to thrive, to consider fpc placement. 5. Acute kidney injury with prerenal azotemia, which is slowly improving with fluids. Lomotil was ordered. Discussed with nursing staff. JONAS JACKSON MD CM:PNTRANS [id number] JONAS JACKSON MD 01/29/17 0938 interface
--- NOTE | ~2017-01-25 | EKG ---
[place], [place] ELECTROCARDIOGRAM REPORT NAME: DOV MOLINA UNIT #: [id number] ROOM: 518 DOCTOR: GALILEO BUCKLEY,SHARA BIRTHDATE: [birth year] DOS: 01/25/2017 TIME: 11:33 a.m. IMPRESSION: 1. Sinus rhythm. 2. Anterior ST-T changes, nondiagnostic. 3. Old inferior infarction. 4. Prolonged QT interval. 5. Baseline artifacts. SHARA GURROLA MD CM:EKGRPT:ELECTROCARDIOGRAM REPORT 1225 1234 SHARA GURROLA MD
--- NOTE | ~2017-01-25 | PR ---
[place], [place] PROGRESS NOTE NAME: DOV MOLINA UNIT #: [id number] ROOM: 518 DOCTOR: LUCHO MARCUS MD BIRTHDATE: [birth year] DOS: 01/29/2017 ATTESTATION. The note was dictated by Dr. Cruz , he is with [facility]. If you can use the attestation note template please. LUCHO MARCUS MD CM:PNTRANS [phone] LUCHO MARCUS MD 01/29/17 1258 interface
--- NOTE | ~2017-01-25 | WRIGHTHP ---
[place], [place] PATIENT HISTORY AND PHYSICAL EXAM NAME: DOV MOLINA [facility] #: [id number] UNIT #: [id number] ROOM: 518 DOCTOR: ABIEL DASH MD BIRTHDATE: [birth year] DOS: 01/25/2017 HISTORY OF PRESENT ILLNESS: The patient is a 66-year-old female with a past medical history of chronic diastolic type CHF, hypertension, hyperlipidemia, multiple falls, adult failure to thrive, history of pericardial effusion, severe hypothyroidism, severe protein-calorie malnutrition, nicotine smoke dependence, vitamin D deficiency. The patient presented to the Emergency Department at [facility] with complaints of diarrhea and weakness for 2 months, some shortness of breath and leg edema. The patient also had some increased shortness of breath, but no abdominal pains, no chest pains. In the ER, the patient was found to have severe hypokalemia. She was suspected to have sepsis and recommended for admission and further management with leukocytosis of 13,800, low potassium of 2.0, lactic acid level elevated to 3.5 with BNP of 26,000. The patient was admitted and found to have severe diarrhea and she turned out to be positive for C. diff toxin. Very weak with increasing weakness with diarrhea, normally lives at home with help of her sister. The patient was found to be in acute renal failure with BUN and creatinine elevated to 57 and 1.9. REVIEW OF SYSTEMS: LUNGS: Some increasing shortness of breath. GASTROINTESTINAL: Persistent diarrhea for 2 months. CARDIOVASCULAR: No chest pains or palpitations. SOCIAL HISTORY: History of smoking cigarettes. Denies any alcohol or drug abuse. FAMILY HISTORY: Noncontributory. HOME MEDICATIONS: The patient takes nifedipine, metoprolol, aspirin and levothyroxine. PHYSICAL EXAMINATION: GENERAL: Awake, alert, oriented x 3, in no visible distress, but very weak. HEENT AND NECK: Extraocular movements are intact. Sclerae are anicteric. Oral mucosa is moist and clean. No obvious facial weakness. Neck is supple without any lymphadenopathy. No thyromegaly. No JVD. No carotid arterial bruits. LUNGS: Clear to auscultation. No wheezing. No rhonchi. CARDIOVASCULAR SYSTEM: Heart rate is regular in rate and rhythm. S1 and S2 normally audible. No significant murmur or any other abnormal cardiac sounds. ABDOMEN: Soft, nontender. No obvious organomegaly. Bowel sounds are present. No obvious herniation. EXTREMITIES: Without significant cyanosis or edema. Warm to touch. CENTRAL NERVOUS SYSTEM: Alert and oriented x 3. Cranial nerves II-XII are intact. Speech is normal. The patient is able to move all extremities. Normal muscle strength. Deep tendon reflexes are equal on both sides. Plantars were downgoing. LABORATORY DATA: Potassium level of 2 has improved to 2.3 with extra potassium [place], [place] PATIENT HISTORY AND PHYSICAL EXAM NAME: DOV MOLINA UNIT #: [id number] ROOM: 518 DOCTOR: ABIEL DASH MD BIRTHDATE: [birth year] supplements. Albumin level low at 1.8. Lactic acid level was up at 3.5, improved to 1.9 with treatment, BUN and creatinine elevated to 57 and 1.9, improved to 55 and 1.6 with hydration. IMPRESSION: 1. Acute Clostridium difficile colitis with persistent diarrhea is being now treated with Flagyl and vancomycin. 2. The patient's leukocytosis from Clostridium difficile colitis has resolved with antibiotic treatment. 3. Severe hypokalemia from diarrhea is being replaced with oral potassium chloride, which is being tolerated very well. 4. Severe protein calorie malnutrition and adult failure to thrive. The patient to work with Physical Therapy and we are taking bedsore precautions. I will also get a palliative care consult. The patient has a DNR/arrest code status. 5. Anemia of chronic disease with hemoglobin of 8.4, to be followed. The patient's drop in hemoglobin appears to be from dilution of the blood because of hydration. 6. Sepsis from Clostridium difficile colitis, elevation of lactic acid level, leukocytosis, hypokalemia and acute kidney failure to be followed and treated. 6. Chronic diastolic type congestive heart failure, compensated. 7. Severe protein calorie malnutrition. The patient to be followed by dietary. ABIEL DASH MD CM:HISPHYS:PATIENT HISTORY AND PHYSICAL EXAMINATION 00 56 ABIEL DASH MD 01/26/171956 interface
--- NOTE | ~2017-01-25 | DS ---
[place], [place] DISCHARGE SUMMARY NAME: DOV MOLINA UNIT #: [id number] ROOM: 518 DOCTOR: ABIEL DASH MD BIRTHDATE: [birth year] DOS: 01/30/2017 DISCHARGE DIAGNOSES: 1. Recurrent acute Clostridium difficile colitis after first treatment, first recurrence. 2. Acute hypokalemia related to diarrhea, improving. 3. Chronic diastolic type congestive heart failure, compensated. 4. Recent pericardial window placed for pericardial effusion. 5. Mixed hyperlipidemia. 6. Benign essential hypertension. 7. Adult failure to thrive with recurrent multiple falls. 8. Hypothyroidism. 9. Severe protein-calorie malnutrition. 10. Nicotine smoke dependence. 11. Vitamin D deficiency. HOSPITAL COURSE: The patient presented with acute diarrhea, acute leukocytosis, severe hypokalemia and she was treated with Flagyl and oral vancomycin and diarrhea is improving. The patient was seen by Infectious Disease specialist and recommended oral vancomycin for 1 month and she was transferred back [facility]. Severe and recurrent hypokalemia related to diarrhea, improving now. Her diarrhea is also improving with treatment. Anemia of chronic disease. Sepsis with C. diff colitis, elevation of lactic acid level, leukocytosis, hypokalemia, acute kidney failure. The patient was treated with hydration with normal saline and her BUN and creatinine and hydration status improved. Chronic diastolic-type congestive heart failure, compensated. Severe protein-calorie malnutrition. The patient worked with dietary and her diet and protein intake will be improved and monitored. LABORATORY DATA: Potassium level normal at 3.5 and BUN and creatinine 16 and 1, improved. Stool for C. diff colitis initially positive, but becoming negative after starting treatment. Cardiac enzymes are negative. DISCHARGE MANAGEMENT: Oral vancomycin for 1 month as directed by Infectious Disease specialist, nifedipine 90 mg daily, metoprolol 25 mg daily, aspirin 81 mg a day, levothyroxine 125 mcg daily, Tylenol p.r.n. [place], [place] DISCHARGE SUMMARY NAME: DOV MOLINA UNIT #: [id number] ROOM: 518 DOCTOR: ABIEL DASH MD BIRTHDATE: [birth year] ABIEL DASH MD CM:MIKE 1822 1213 ABIEL DASH MD 01/31/17 1222 interface
--- NOTE | ~2017-01-25 | PR ---
[place], [place] PROGRESS NOTE NAME: DOV MOLINA UNIT #: [id number] ROOM: 518 DOCTOR: TARSHA PADRON,MAY BIRTHDATE: [birth year] DOS: 01/30/2017 SUBJECTIVE: The patient is a 66-year-old female who is being followed for recurrent C. diff. Reviewing her prior records, she was positive for C. diff earlier in December. She was treated for it. Then, she has had recurrence now with a positive C. diff on January 25. She had also previously been positive again in December. She states her stools are a little better. She is still passing liquid mucousy stools. No nausea or vomiting. No abdominal pain or cramps. Poor oral intake. No rash or itch. No cough or shortness of breath. No pain anywhere. She has been afebrile. CURRENT MEDICATIONS: Include Lomotil, Tylenol, oral vancomycin, calazime, potassium chloride, Procardia, Toprol, aspirin, and Synthroid. LABORATORY DATA: BUN 16, creatinine 1.11. Blood cultures negative. PHYSICAL EXAMINATION: VITAL SIGNS: Temperature 98.7, pulse 94, respirations 18, BP 148/68. GENERAL: A 66-year-old female, nontoxic in appearance. HEENT: Normocephalic, no thrush. Edentulous. LUNGS: Clear to auscultation bilaterally. Respirations even and unlabored. HEART: Regular rhythm. No murmur appreciated. ABDOMEN: Soft, nontender, nondistended. Positive bowel sounds. EXTREMITIES: No edema or deformity. ASSESSMENT: Recurrent Clostridium difficile. PLAN: She needs oral vancomycin wean. Stop the Lomotil, this can worsen her condition. She is okay to go to an extended care facility. Discharge orders were written. Case discussed with Dr. Susan Young. ADDENDUM After reviewing the chart, labs and radiographs, I agree with the above plans as described. We will follow the patient up clinically and adjust accordingly. MAY NEREIDA WILLINGHAM [place], [place] PROGRESS NOTE NAME: DOV MOLINA UNIT #: [id number] ROOM: 518 DOCTOR: TARSHA PADRON,MAY BIRTHDATE: [birth year] SUSAN YOUNG MD CM:PNTRANS [id number] MAY TARSHA PADRON 01/31/17 0708 interface
[2017-01-25 11:01] VITALS: BP 141/65
[~2017-01-25 11:01] MED LIST changes: +ASPIRIN ADULT L81 M2 PO; +FERROUS SULFAT325 MG PO; +POTASSIUM CHLO10 ME4 PO; +Synthroid,Lev100 MCG PO; +VITAMIN D-32000 UNI1 PO
[2017-01-25 11:34] LABS: HEMATOCRIT 30.9 % (37.0-47.0); HEMOGLOBIN 10.5 g/dl (12.0-16.0); MEAN CELL VOLUME 82.4 fl (81.0-99.0); MEAN PLATELET VOLUME 9.5 fl (9.6-12.3); PLATELET COUNT AUTOMATED 441 10*3/uL (130-400); RED BLOOD COUNT 3.75 10*6/uL (4.10-5.10); RED CELL DISTRI WIDTH 16.4 % (0-14.5); WHITE BLOOD COUNT 13.8 10*3/uL (4.8-10.8)
[2017-01-25 11:41] LABS: INTERNATIONAL NORM RATIO 1.1 (2.0-3.5)
[2017-01-25 11:50] LABS: ALBUMIN 2.4 gm/dl (3.1-4.5); CREATININE 1.9 mg/dL (0.55-1.02)
[2017-01-25 11:51] LABS: TROPONIN I 0.028 ng/ml (<0.045)
[2017-01-25 11:53] VITALS: BP 138/76
[2017-01-25 11:54] LABS: TOTAL CELLS COUNTED 100 #CELLS
[2017-01-25 11:55] LABS: TOXIC GRANULATION MODERATE; VACUOLATION OF NEUTROPHILS MODERATE
[2017-01-25 11:56] LABS: BURR CELLS MODERATE
--- NOTE | 2017-01-25 11:57 | NUR ---
K+ 2.0 Luke CAN NOTIFIED
[2017-01-25 11:58] LABS: DOHLE BODIES FEW; PLATELET SUFFICIENCY HIGH (NORMAL)
[2017-01-25 12:10] LABS: BILIRUBIN NEGATIVE (NEGATIVE); BLOOD NEGATIVE (NEGATIVE); CLARITY SL CLOUDY (CLEAR); COLOR YELLOW (YELLOW); GLUCOSE NEGATIVE (NEGATIVE); KETONE NEGATIVE (NEGATIVE); LEUKO ESTERASE 1+ (NEGATIVE); NITRITE NEGATIVE (NEGATIVE); SPECIFIC GRAVITY <= 1.005 (1.005-1.030); UROBILINOGEN 0.2 E.U./dl (0.2-1.0)
[2017-01-25 12:16] VITALS: BP 120/57
[2017-01-25 12:17] LABS: BACTERIA 4+; EPITHELIAL CELLS 0-2
--- NOTE | 2017-01-25 12:29 | NUR ---
IV DC'D FROM EMS. INFILTRATED WITH SALINE FLUSH WHEN ATTEMPTING TO ACCESS.
[2017-01-25 13:17] VITALS: BP 122/70
--- NOTE | 2017-01-25 13:50 | NUR ---
Time: 0 A 66 year old FEMALE admitted to 5E under services of DR. HARDY BUCKLEY,ABIEL Jones Pt. arrived via bed from ER. Chief complaint: DIARRHEA, UTI, PERIPHERAL EDEMA. HARJINDER CALDERON
--- NOTE | 2017-01-25 14:00 | NUR ---
Time: 1250 A 66 year old FEMALE admitted to 5E under services of DR. HARDY BUCKLEY,ABIEL Jones Pt. arrived via from ER. Chief complaint: UTI, DIARRHEA, PERIPHERAL EDEMA. HARJINDER CALDERON
[2017-01-25] MEDS ORDERED: SYNTHROID,LEV125 MCG PO (14:12)
[2017-01-25] MEDS ORDERED: [UNRECOGNIZED DRUG - OTHER] PO (14:15)
[2017-01-25 16:00] VITALS: BP 131/64
--- NOTE | 2017-01-25 19:20 | NUR ---
PT. AWAKE, ALERT AND ORIENTED X 3 AT THIS TIME. PT. IN BED AT THIS TIME. LUNGS DIMINISHED, PT. DENIES SOB AT THIS TIME ON RA, SPO2 - 100 ON RA. HRR, PPP, +2 PITTING EDEMA TO BLE, DENIES CP. BOWEL SOUNDS NORMO X 4 QUADS, PT. STATED LIQUID STOOL MOVEMENT EARLIER TODAY, HX. OF C-DIFF, PT. IN CONTACT ISOLATION, AWAITING RESULTS OF STOOL SENT. GENERALIZED WEAKNESS, PT. C/O PAIN TO RT. HEEL. BOTH HEELS ARE ASYMPTOMATIC, PT. DID NOT WANT ANY MEDICATION FOR PAIN AT THIS TIME, BUT REQUESTED A PILLOW UNDER HER LEGS AT THIS TIME TO RELIEVE PRESSURE. WILL CONTINUE TO MONITOR. CALL LIGHT WITHIN REACH, BED IN LOWEST POSITION, WHEELS LOCKED.
--- NOTE | 2017-01-25 20:40 | NUR ---
NURSING CLINICAL ASSESSMENT MANAGER IN TO SEE AND STAGE PTS. WOUND ON COCCYX AT THIS TIME.
--- NOTE | 2017-01-25 20:55 | NUR ---
DR. DASH NOTIFIED OF PTS. STAGE II PRESSURE ULCER ON COCCYX AT THIS TIME. PER DR. DASH, A NOTE IS TO BE PLACED TO REQUEST DERICK ROMERO LOOK AT AND RECOMMEND TREATMENT FOR THE WOUND AT THIS TIME. MESSAGE TO FLOOR PUT IN AT THIS TIME. WILL E-MAIL DERICK AT THIS TIME WELL.
--- NOTE | 2017-01-25 20:55 | NUR ---
DR. DASH REQUESTING DERICK ROMERO TO SEE STAGE II PRESSURE ULCER ON COCCYX OF THIS PT. TO SUGGEST ORDERS FOR THE PT.
[2017-01-26] VITALS: BP 143/63
[2017-01-26 07:02] LABS: HEMATOCRIT 27.5 % (37.0-47.0); HEMOGLOBIN 9.3 g/dl (12.0-16.0); MEAN CELL VOLUME 83.1 fl (81.0-99.0); MEAN CORPUSCULAR HGB 28.1 pg (27.0-31.0); MEAN CORPUSCULAR HGB CONC 33.8 g/dl (33.0-37.0); MEAN PLATELET VOLUME 9.8 fl (9.6-12.3); PLATELET COUNT AUTOMATED 322 10*3/uL (130-400); RED BLOOD COUNT 3.31 10*6/uL (4.10-5.10); RED CELL DISTRI WIDTH 16.4 % (0-14.5); WHITE BLOOD COUNT 8.6 10*3/uL (4.8-10.8)
[2017-01-26 07:11] LABS: CREATININE 1.62 mg/dL (0.55-1.02)
[2017-01-26 07:46] LABS: BURR CELLS MODERATE; PLATELET SUFFICIENCY NORMAL (NORMAL); SCHISTOCYTES FEW; TOTAL CELLS COUNTED 100 #CELLS; TOXIC GRANULATION MODERATE
[2017-01-26 08:00] VITALS: BP 122/76
--- NOTE | 2017-01-26 08:00 | NUR ---
VS STABLE, ALERT ORENTATIEDX3, LE, HEART SOUNDS NORMAL, LUNGS DIMISHED THROUGHOUT, SKIN PINK WARM & DRY SP02 100% ON ROOM AIR, RESP 20 NON-LABORED, PULSE 60 REGULAR, ABDOMEN SOFT NON-DISTENED, BOWEL SOUNDSX4, SKIN TURGOR GOOD, IV SITE IN RIGHT HAND ASYSTEMATIC, 2+ PITTING EDEMA IN BILATERAL EXTERMITIES, +PEDAL PULSE USE DOPPLER TO FIND PULSE.
--- NOTE | 2017-01-26 08:30 | NUR ---
Associate Sales in to talk to patient. Patient states lives at HOME with HER SISTER. There are 14 steps in the home. Physician: KEVIN ALLEN Pharmacy: [facility] Home health services: NONE Patient's level of ADLs: MODERATE ASSIST Patient has working utilities: YES DME: WALKER/SH CHAIR Follow-up physician's appointment after d/c: PREFERS TO MAKE HER OWN APPT Does patient want to access PORTAL?: Discharge plan . HAYDER GOLDMAN PT STATES HER SISTER IS VERY UPSET WITH HER DUE TO ALWAYS HAVING DIARRHEA. THIS IS CAUSING ALOT OF DISTENTION AT HOME. PT AGREES TO SNF STAY AND WANTS TO GO BACK TO [facility]. DC SHAKER OUT WILL MAKE REFERRAL. DR DASH AWARE OF DC PLAN.
--- NOTE | 2017-01-26 08:30 | NUR ---
PATIENT AWAKE, ALERT, & ORIENTED. DENIES ANY PAIN OR SOB AT THIS TIME. PATIENT REPOSITIONED FOR COMFORT. LUNGS CLEAR/DIM. 2+ PITTING EDEMA TO BILATERAL FEET & ANKLES, R>L. STUDENT NURSE TAKING CARE OF PATIENT TODAY AND INFORMED HER THAT WE NEED STOOL COLLECTED FOR C.DIFF. CALL LIGHT IN REACH AT ALL TIMES.
--- NOTE | 2017-01-26 10:57 | NUR ---
DOV MOLINA [id number] Please refer to the physician's history and physical for past medical history, comorbid conditions, and allergies. Diagnosis: UTI,DIARRHEA,PERIPHERAL EDEMA,DEHYDRATION,HYPOKALE Ethan Score: 19,LOW OR NO RISK WOUND DESCRIPTIONS: Location of the wound: coccyx Type of wound: stage 2 Thickness: Partial Size: 2.3cm x 1.0cm 0.1cm Tunneling: none Undermining: none Sinus Tract: none Presence of Exudate: Serous Amount: Light Color: Red Odor: None Periwound Skin Appearance: Erythema Wound edges: approximated Pain (associated with wound): patient denied at time of assessment How does patient state this happened? patient is unsure how this happened Red blanchable bilateral heels noted. No open areas to bilateral heels noted. Surface the patient is resting on: Position Pro SKIN PREVENTION RECOMMENDATION: 1. Pressure redistribution support surface as appropriate 2. Elevate heels 3. Remove boots/TEDS every shift and reapply 4. Head of bed 30 degrees as tolerated 5. Assess nutrition and hydration 6. Manage moisture 7. Avoid the use of containment devices while in bed 8. Use absorptive products on surfaces limit layers of linens on bed 9. Turn and reposition every 1-2 hours in bed and every 1 hour in chair as tolerated 10. Weight shifts every 15 minutes while up in chair 11. Offloading with pillows or device to keep heels elevated off bed 12. Monitor skin at least every shift 13. Inspect under medical devices twice a day WOUND TREATMENT RECOMMENDATIONS: Heel raiser pro boots Calazime to coccyx BID and as needed for soiling
--- NOTE | 2017-01-26 11:03 | NUR ---
PHYSICAL THERAPY PAtient evaluated on 5, full evaluation to follow. Continue with PT as per plan of care with fall, C diff like symptoms and acute debility. Recommend SNF for impaired mobility. PAtient is moderate complexity via chart review, tests and evalatuion: 95607. Thank you for this freferral. Charissa Escobar,PT
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
[2017-01-26 11:34] LABS: HEMATOCRIT 24.9 % (37.0-47.0); HEMOGLOBIN 8.4 g/dl (12.0-16.0); MEAN CORPUSCULAR HGB CONC 33.7 g/dl (33.0-37.0); MEAN PLATELET VOLUME 9.6 fl (9.6-12.3); PLATELET COUNT AUTOMATED 273 10*3/uL (130-400); RED CELL DISTRI WIDTH 16.4 % (0-14.5); WHITE BLOOD COUNT 9.9 10*3/uL (4.8-10.8)
[2017-01-26 11:58] LABS: BURR CELLS MODERATE; PLATELET SUFFICIENCY NORMAL (NORMAL); TOTAL CELLS COUNTED 100 #CELLS; TOXIC GRANULATION MODERATE
[2017-01-26 11:59] LABS: ACANTHOCYTES FEW; SCHISTOCYTES FEW
--- NOTE | 2017-01-26 12:47 | NUR ---
PHYSICAL THERAPY Patient had visitors in room at 12:35. Will check back later. OWEN PEÑALOZA LOCOMOTIVE ENGINEER
[2017-01-26 13:28] LABS: ALBUMIN 1.9 gm/dl (3.1-4.5); CREATININE 1.71 mg/dL (0.55-1.02)
[2017-01-26 13:32] LABS: POTASSIUM 2.1 mmol/L (3.5-5.1)
--- NOTE | 2017-01-26 14:03 | NUR ---
ATTEMPTED TO SEE PT THIS PM FOR OT EVALUATION. PT SLEEPING, UNABLE TO WAKE UP TO PARTICIPATE. WILL TRY AGAIN PER PT'S LEVEL OF ALERTNESS
[2017-01-26 16:00] VITALS: BP 115/55
[2017-01-26 17:35] LABS: ALBUMIN 1.8 gm/dl (3.1-4.5); CREATININE 1.63 mg/dL (0.55-1.02); TOTAL PROTEIN 4.8 gm/dL (6.4-8.2)
[2017-01-26 17:39] LABS: POTASSIUM 2.3 mmol/L (3.5-5.1)
--- NOTE | 2017-01-26 20:00 | NUR ---
AWAKE & ALERT RESTING IN BED WITH HOB ELEVATED. IV FLUIDS INFUSING INTO LEFT HAND WITHOUT DIFFICULTY; SITE ASYMPTOMATIC. PT. IS FORGETFUL; REPEATS HERSELF. LUNGS CLEAR WITH NO COUGH NOTED. HEEL PROTECTORS ON BILATERALLY. PULSE OX 100% ON ROOM AIR. NO DISTRESS NOTED; CALL LIGHT WITHIN REACH.
[2017-01-26 23:48] LABS: CREATININE 1.59 mg/dL (0.55-1.02); POTASSIUM 3.1 mmol/L (3.5-5.1); TOTAL PROTEIN 5.1 gm/dL (6.4-8.2)
[2017-01-27] VITALS: BP 124/62
--- NOTE | 2017-01-27 06:00 | NUR ---
INCONTINENT OF STOOL; HENOK CARE PROVIDED. CALZAMINE LOTION APPLIED TO BUTTOCKS. IV FLUIDS CONTINUE TO INFUSE WITHOUT DIFFICULTY. PT. VOICES NO C/O AT THIS TIME. CALL LIGHT WITHIN REACH.
[2017-01-27 06:59] LABS: HEMATOCRIT 27.3 % (37.0-47.0); HEMOGLOBIN 9.3 g/dl (12.0-16.0); MEAN CORPUSCULAR HGB 28.6 pg (27.0-31.0); MEAN CORPUSCULAR HGB CONC 34.1 g/dl (33.0-37.0); MEAN PLATELET VOLUME 10.3 fl (9.6-12.3); PLATELET COUNT AUTOMATED 254 10*3/uL (130-400); RED BLOOD COUNT 3.25 10*6/uL (4.10-5.10); RED CELL DISTRI WIDTH 16.6 % (0-14.5); WHITE BLOOD COUNT 7.7 10*3/uL (4.8-10.8)
[2017-01-27 07:11] LABS: CREATININE 1.52 mg/dL (0.55-1.02); POTASSIUM 3.2 mmol/L (3.5-5.1)
[2017-01-27 07:28] LABS: PLATELET SUFFICIENCY NORMAL (NORMAL); TARGET CELLS MODERATE; TOTAL CELLS COUNTED 100 #CELLS
[2017-01-27 07:29] LABS: BURR CELLS MODERATE
[2017-01-27 08:00] VITALS: BP 131/77
--- NOTE | 2017-01-27 08:22 | NUR ---
PHYSICAL THERAPY Patient refused therapy this morning saying that, "Occupational therapy was just here and she is not doing therapy again this soon". Patient wants physical therapy to come back at 1 pm. OWEN PEÑALOZA PTA
--- NOTE | 2017-01-27 08:32 | NUR ---
Patient requested referral be made to [facility]. Faxed referral, if accepted will require precert.
--- NOTE | 2017-01-27 09:14 | NUR ---
Danielle from [facility] stated this patient has been there in the past. She will check insurance, however patient has to meet an out of pocket deductable and she still owes them copays from the last stay. Will follow
--- NOTE | 2017-01-27 11:14 | NUR ---
Occupational Therapy evaluation completed on 5 with full eval to follow. Precautions include fall risk, moderate complexity level 80855, IV UE, acute debility. Recommend OT per POC and SNF upon d/c to enable return home w/ at OF. Thank you for this referral. Liss Junior OTR/L
--- NOTE | 2017-01-27 12:35 | NUR ---
PHYSICAL THERAPY Pt seen this PM 1:1, family present. Mrs Narvaez supine in bed and said NO to having her theray that she was not going to get up and did not want any therapy. Said that she was having leg pain. CHACHA CERVANTES ACTIVITIES DIRECTOR SCOUTING.
--- NOTE | 2017-01-27 13:09 | NUR ---
Patient has been accepted to [facility], requires precert. hospital exemption completed online in [employer] system.
[2017-01-27 16:00] VITALS: BP 135/69
--- NOTE | 2017-01-27 20:00 | NUR ---
PT PLEASANT DURING ASSESSMENT, NO COMPLAINTS AT THIS TIME. PLACED ON THE BED CRUZ AND BRIEF IS IN PLACE. PA IN TO ASSIST WITH BED CRUZ PLACEMENT. STATES HER STOOL IS STILL LOOSE BUT SHE IS HAVING LESS BOWEL MOVEMENTS THAN PRIOR. HEEL PROTECTORS IN PLACE. CALL LIGHT IN REACH.
[2017-01-27 20:07] VITALS: BP 119/69
--- NOTE | 2017-01-27 21:00 | NUR ---
24 HOUR CHART CHECK COMPLETED AT THIS TIME.
--- NOTE | 2017-01-27 23:00 | NUR ---
SPOKE WITH DR SARAVIA ABOUT PATIENTS COMPLAINT OF RIGHT LEG PAIN. RECEIVED TELEPHONE ORDER OF TYLENOL 1000 MG TID/PRN.
[2017-01-28] VITALS: BP 120/70
--- NOTE | 2017-01-28 00:04 | NUR ---
PT GIVEN TYLENOL PER REQUEST FOR RIGHT LEG PAIN. WILL CONTINUE TO MONITOR FOR EFFECTIVENESS, CALL LIGHT IN REACH.
[2017-01-28 07:26] LABS: HEMATOCRIT 23.5 % (37.0-47.0); HEMOGLOBIN 7.8 g/dl (12.0-16.0); MEAN CELL VOLUME 83.3 fl (81.0-99.0); MEAN CORPUSCULAR HGB 27.7 pg (27.0-31.0); MEAN CORPUSCULAR HGB CONC 33.2 g/dl (33.0-37.0); MEAN PLATELET VOLUME 10.4 fl (9.6-12.3); PLATELET COUNT AUTOMATED 214 10*3/uL (130-400); RED BLOOD COUNT 2.82 10*6/uL (4.10-5.10); RED CELL DISTRI WIDTH 16.9 % (0-14.5); WHITE BLOOD COUNT 7.1 10*3/uL (4.8-10.8)
[2017-01-28 07:46] LABS: CREATININE 1.22 mg/dL (0.55-1.02)
[2017-01-28 07:54] LABS: TOTAL CELLS COUNTED 100 #CELLS
[2017-01-28 08:00] VITALS: BP 138/65
[2017-01-28 08:02] LABS: POTASSIUM 2.2 mmol/L (3.5-5.1)
--- NOTE | 2017-01-28 08:15 | NUR ---
DR CARR CALLED WITH CRITICAL LAB , K+ = 2.2. NEW ORDER TAKEN FOR 60 MEQ K+ NOW AND REPEAT BLOOD WORK IN 3 HOURS.
[2017-01-28 08:24] LABS: BURR CELLS MODERATE; OVALOCYTES FEW; PLATELET SUFFICIENCY NORMAL (NORMAL); POLYCHROMASIA SLIGHT
--- NOTE | 2017-01-28 08:27 | NUR ---
Patient pleasantly declined OT at this time with c/o not sleeping and continued diarrhea and malaise. OTR will attempt at another time. Liss Junior OTR/l
--- NOTE | 2017-01-28 08:43 | NUR ---
PHYSICAL THERAPY Patient refused therapy today at 8:40 am and says she is NOT doing any therapy this morning. This is what she said yesterday x 3 and no therapy was provided yesterday due to these refusals. Will continue to try to encourage patient to participate in therapy. OWEN PEÑALOZA DEHYDRATOR TENDER
--- NOTE | 2017-01-28 09:43 | NUR ---
PHYSICAL THERAPY Patient seen this am 1:1 for therapy visit, supine in bed with continuos IV and several family members present. Patient needed MAX encouragment for active participation voicing increased c/o B LE weakness / pain and was wearing soft heel protector boots. Patient able to assist therapist by picking up LE's in taking off boots and putting anti skid socks on prior to transfering sup to sit EOB, Mod/Max A x 1. Patient tolerated EOB sit x 3 minutes, SBA, then treansfers sit to stand RAILROAD SIGNAL AND SWITCH OPERATOR/Max A, requiring v/c for increased upright posture, completing SPT to [facility]. Patient demonstrated difficulty advancing feet while taking 2-3 steps along with increased fatigue secondary to generalized weakness. Patient demonstrated slight improvement with SPT return to bed with Mod/RAILROAD SIGNAL AND SWITCH OPERATOR x 1 and remained supine in bed with call light, tray table and telephone. Patient educated on importance of continueing therapy to improve LE stength and functional mobility as tolerated. Total treatment time 20 minutes. Aung Desai, ADOPTION MANAGER
--- NOTE | 2017-01-28 09:45 | NUR ---
PRN TYLENOL GIVEN FOR 6/10 ELENITA LEG PAIN.
--- NOTE | 2017-01-28 10:15 | NUR ---
OT DAILY NOTE PT SEEN THS AM FOR 20 MINS OF OT. PT SUPINE IN BED WITH FAMILY MEMBERS PRESENT. PT C/O PAIN IN BLE, BUT GIVES NO NUMERICAL RATING. SUPINE TO SIT AT EOB WITH MAX A TO BRING TRUNK UP FROM MATTRESS AND TO BRING BLE OUT OF BED. SEATED EOB FOR 3 MINUTES AT [facility] FOR BALANCE, HOLDING ONTO BEDRAIL. PT TRANSFERRED FROM EOB TO BSC WITH MAX A. MAX A FOR CLOTHING MANAGEMENT AND HYGIENE. MOD A FOR SPVT TRANSFER FROM BSC TO EOB. ASSIST TO BRING BLE INTO BED AND ASSIST FOR BED POSITIONING. PT WEAK AND WOULD BENEFIT FROM CONTINUED OT TO INCREASE STRENGTH AND INCREASE ACTIVITY TOLERANCE FOR ADLS AND FUNCTIONAL MOBILITY. CONTINUE OT PLAN OF CARE. BRUCE DICKINSON/Lillie
--- NOTE | 2017-01-28 10:42 | NUR ---
Faxed updated progress notes and therapy notes for precert, waiting on auth
--- NOTE | 2017-01-28 10:45 | NUR ---
PRN PAIN MED EFFECTIVE, PT REPORTS PAIN IN LEGS 3/10.
--- NOTE | 2017-01-28 12:35 | NUR ---
DR CARR CALLED TO REPORT PT REPORT CHEST PAIN 10/01 MID STERNAL NONRADIATING. I WAS TOLD TO CALL DR MATHEWS FOR STAT CONSULT. BISI ALREADY CONSULTED BUT SPOKE WITH DR GUTHRIE FROM CARDIOLOGY.
--- NOTE | 2017-01-28 12:35 | NUR ---
DR DASH CALLED WITH REPEAT K+ LAB RESULT OF 2.5. NEW ORDER TAKEN FOR 60 MEQ MORE OF K+ NOW FOLLOW BY REPEAT LAB AGAIN IN 3 HOURS.
--- NOTE | 2017-01-28 12:37 | NUR ---
PRN NITROGLYCERIN GIVEN SL FOR CHEST PAIN 10/01.
--- NOTE | 2017-01-28 12:41 | NUR ---
PRN NITRO EFFECTIVE FOR CHEST PAIN, PT REPORTS PAIN 4/10.NO FURTHER DOSES NEEDED.
[2017-01-28 16:00] VITALS: BP 120/65
--- NOTE | 2017-01-28 17:32 | NUR ---
PRN PAIN MED GIVEN FOR PT REPORT 6/10 ELENITA LEG PAIN.
--- NOTE | 2017-01-28 18:32 | NUR ---
PRN PAIN MED EFFECTIVE, PT REPORTS HER PAIN 3/10 TO ELENITA LEGS.
--- NOTE | 2017-01-28 19:30 | NUR ---
DR DASH NOTIFIED OF REPEAT K AT 2.9. DR ORDERED 60 MEq LIQUID POTASSIUM, BMP FOR THE MORNING AND INFECTIOUS DISEASE CONSULT WITH DR. BURNHAM FOR ENTEROCOLITIS.
--- NOTE | 2017-01-28 19:52 | NUR ---
DR BURNHAM OFFICE NOTIFIED OF CONSULT FOR ENTEROCOLITIS.
[2017-01-28 19:55] VITALS: BP 111/64
--- NOTE | 2017-01-28 22:41 | NUR ---
SPOKE WITH DOCTOR BURNHAM REGARDING CONSULT.
[2017-01-29] VITALS: BP 113/72
--- NOTE | 2017-01-29 01:48 | NUR ---
24 HOUR CHART CHECK COMPLETED AT THIS TIME.
[2017-01-29 06:47] LABS: CREATININE 1.19 mg/dL (0.55-1.02); POTASSIUM 2.5 mmol/L (3.5-5.1)
--- NOTE | 2017-01-29 07:37 | NUR ---
OCCUPATIONAL THERAPY CO-SIGN I approve of the Occupational Therapy notes written above. NIKKI PAUL OTR/Lillie
[2017-01-29 08:00] VITALS: BP 134/61
--- NOTE | 2017-01-29 08:00 | NUR ---
DR DASH CALLED TO REPORT CRITICAL LAB VALUES, NEW ORDERS RECEIVED.
--- NOTE | 2017-01-29 08:32 | NUR ---
Received authorization for patient to go to [facility] today, can go if medically stable for discharge.
--- NOTE | 2017-01-29 08:51 | NUR ---
Patients authorization for [facility] is good for 48 hours. If patient doesn't go today or tomorrow (01/29/17 or 01/30/17) patient cannot go until precert is restarted and authorized again.
--- NOTE | 2017-01-29 09:52 | NUR ---
PATIENT SEEN 1:1 30 MINUTES OUT THIS DATE. PATIENT IDENTIFIED BY NAME AND DATE OF . PATIENT REFUSED TO GET OUT OF BED THIS DATE WITH PATIENT EDUCATED BENEFITS THERAPY FOR OVERALL INCREASE INDEPENDENCE FUCNITONAL TASKS. COMPLETED BILATERAL ROLLING EDUCATION USE RAIL WITH PLACEMENT AND REMOVAL OF BED CRUZ AFTER USE MIN A ROLLING AND DEPENDENT TOILETING. PATIENT COMPLETED FEEDING TASK MIN A WITH MIN VERBAL CUES TECHNIQUE AND FORM. PATIENT REQUIRES MAX ENCOURAGEMENT TO COMPLETE TASKS AND INCREASE TIME. PATIENT'S SISTER PRESENT DURING TREATMENT THIS DATE. DILLON CASTILLO
--- NOTE | 2017-01-29 10:08 | NUR ---
PRN PAIN MED GIVEN FOR PT REPORT ELENITA LEG PAIN 6/10.
--- NOTE | 2017-01-29 11:08 | NUR ---
PRN PAIN MED EFFECTIVE,PT REPORTS HER ELENITA LEG PAIN 3/10.
--- NOTE | 2017-01-29 13:15 | NUR ---
PHYSICAL THERAPY Mrs Narvaez seen this PM 1:1, sister present. Maru said NO, NO therapy lino not getting up, not going. CHACHA CERVANTES BRANCH OR DEPARTMENT CHIEF LIBRARIAN.
[2017-01-29 16:00] VITALS: BP 152/79
[2017-01-29 20:00] VITALS: BP 163/80
--- NOTE | 2017-01-29 21:00 | NUR ---
PT STATES THAT PRN TYLENOL WAS EFFECTIVE FOR PAIN RELIEF. PT ENCOURAGED TO DO SOME THINGS FOR HERSELF TO INCREASE HER STRENGTH. PT WANTED THIS NURSE TO HOLD HER CUP OF WATER FOR HER. BEDSIDE TABLE WITH CUP OF WATER PLACED IN FRONT OF PT. PT ABLE TO PICK CUP UP AND HOLD IT BY HERSELF. CALL LIGHT IN REACH. LIGHT LEFT ON PER PT REQUEST.
--- NOTE | 2017-01-30 04:55 | NUR ---
24 HR chart check completed.
[2017-01-30 06:37] LABS: CREATININE 1.11 mg/dL (0.55-1.02); POTASSIUM 3.5 mmol/L (3.5-5.1)
--- NOTE | 2017-01-30 07:57 | NUR ---
Shift chart check completed.
[2017-01-30 08:00] VITALS: BP 148/68
--- NOTE | 2017-01-30 10:00 | NUR ---
PT COMPLAINS OF BILATERAL KNEE PAIN, TYLENOL GIVEN. SEE MAR. WILL MONITOR FOR EFFECTIVENESS.
--- NOTE | 2017-01-30 10:37 | NUR ---
PHYSICAL THERAPY Attempted 2x for PT services this date; first attempt pt asked therapist to come back in an hour. Therapist returned 1.5 hours later and pt reports still not feeling up to completing any type of activity. She reports she may try to complete seated activities later tonight or tomorrow depending how she feels. She was left semi reclined in bed with call light near and cup of water as requested. Nely Morales DUCT LAYER.
--- NOTE | 2017-01-30 11:00 | NUR ---
PT STATES TYLENOL SLIGHTLY EFFECTIVE.PT REFUSES TO GET UP OUT OF BED TO BEDSIDE COMMODE, REQUESTS TO USE BEDPAN. COCCYX REDDENED, CALAZIME APPLIED.
--- NOTE | 2017-01-30 14:58 | NUR ---
SPOKE TO DR. DASH AND NOTIFIED HIM THAT INFECTIOUS DISEASE IS OKAY WITH PATIENT BEING DISCHARGED TO [facility] TODAY WITH A TAPER DOSE OF VANCOMYCIN. WRITTEN RX DONE BY SABINE WILLINGHAM CNP. DR. DASH STATED OKAY TO DISHCARGE PATIENT TO [facility] TODAY. ALL MEDICATIONS TO BE CONTINUED REVIEWED, HAVE CALCUTTA CHECK POTASSIUM LEVEL ONCE DAILY FOR 1 WEEK.
[2017-01-30] MEDS ORDERED: REMEDY CALAZIME4 GM T (15:12)
--- NOTE | 2017-01-30 15:28 | NUR ---
PHYSICAL THERAPY CO-SIGN I approve of the Phyical Therapy notes written above. JAKI FISH PT
[2017-01-30] MEDS ORDERED: VANCOMYCIN (15:44)
[2017-01-30 16:00] VITALS: BP 148/67
--- NOTE | 2017-01-30 16:10 | NUR ---
REPORT CALLED TO [facility]. PT MADE AWARE WILL BE DISCHARGED TONIGHT AND REQUESTED FOR FAMILY TO BE NOTIFIED, WILL NOTIFY FAMILY PT WILL BE D/C AT 6PM TONIGHT.
--- NOTE | 2017-01-30 16:30 | NUR ---
PT REFUSING PICTURES OF BUTTOCKS/COCCYX PRIOR TO DISCHARGE
--- NOTE | 2017-01-30 17:37 | NUR ---
FAMILY AWARE OF PATIENT TRANSFER TO [facility] AT 6PM. IV REMOVED, DRESSING APPLIED.
--- NOTE | 2017-01-30 17:52 | NUR ---
Discharge instructions reviewed with patient/family. DISCHARGE INSTRUCTIONS SENT TO [facility]. Follow-up care understood Written instructions sent to [facility]. lifeteam here to fruit picker patient MALCOLM CAMPBELL
--- NOTE | 2017-02-01 08:03 | NUR ---
OCCUPATIONAL THERAPY CO-SIGN I approve of the Occupational Therapy notes written above. NIKKI PAUL OTR/Lillie
== END 2017-01-30 17:52 | disposition other institution (70) | DRG 871 ==
LOC: ED 11:01 → EDHOLD 12:53 → 5E 12:53
PROVIDERS: Physician Assistant; ADMIT Internal Medicine
DX: A41.9 Sepsis, unspecified organism (principal); E43 Unspecified severe protein-calorie malnutrition; N17.9 Acute kidney failure, unspecified; A04.71 Enterocolitis due to Clostridium difficile, recurrent; I50.32 Chronic diastolic (congestive) heart failure; I11.0 Hypertensive heart disease with heart failure; E86.0 Dehydration; N30.01 Acute cystitis with hematuria; Z68.42 Body mass index [BMI] 45.0-49.9, adult; E87.6 Hypokalemia; E78.2 Mixed hyperlipidemia; R62.7 Adult failure to thrive; E55.9 Vitamin D deficiency, unspecified; E03.9 Hypothyroidism, unspecified; D63.8 Anemia in other chronic diseases classified elsewhere; F17.210 Nicotine dependence, cigarettes, uncomplicated; B96.1 Klebsiella pneumoniae [K. pneumoniae] as the cause of diseases classified elsewhere; B95.2 Enterococcus as the cause of diseases classified elsewhere; Z86.73 Personal history of transient ischemic attack (TIA), and cerebral infarction without residual deficits; Z81.1 Family history of alcohol abuse and dependence; Z82.49 Family history of ischemic heart disease and other diseases of the circulatory system; Z79.899 Other long term (current) drug therapy; Z79.82 Long term (current) use of aspirin

== ENCOUNTER 2017-04-05 08:49 | Inpatient (IN) | payer OTHER ==
[~2017-04-05] VITALS: Ht 157.4 cm; Wt 44.2 kg
[2017-04-05] VITALS (9 sets, daily range): BP systolic 137–230; BP diastolic 74–117
--- NOTE | ~2017-04-05 | PR ---
[place], [place] PROGRESS NOTE NAME: DOV MOLINA [facility] #: [id number] UNIT #: [id number] ROOM: 506 DOCTOR: ABIEL DASH MD BIRTHDATE: [birth year] DOS: 04/14/2017 SUBJECTIVE: The patient continues to feel better except for complaints of right hip pains. She is more awake and alert and oriented than before. OBJECTIVE: VITAL SIGNS: Blood pressure 178/90, heart rate of beats per minute, temperature 98 degrees Fahrenheit. GENERAL APPEARANCE: The patient is alert and oriented x 3, in no visible distress. HEENT AND NECK: Exam within normal limits. CARDIOVASCULAR SYSTEM: Heart rate is regular in rate and rhythm. S1 and S2 normally audible. LUNGS: Clear to auscultation. ABDOMEN: Soft, nontender. No obvious organomegaly. Bowel sounds are present. EXTREMITIES: Without significant cyanosis or edema. IMPRESSION: 1. The patient with severe protein calorie malnutrition and adult failure to thrive. 2. Right hip fracture for which she is waiting for trochanteric nailing by Dr. Carrillo later this week. 3. Acute over chronic C. diff colitis and leukocytosis, which is resolving with treatment with vancomycin. Infectious Disease specialists are following the patient. 4. Mixed hyperlipidemia, treated with simvastatin. 4. Hypothyroidism, treated with levothyroxine. 5. Benign essential hypertension with elevated blood pressures. I will adjust her medications. 6. Chronic diastolic type congestive heart failure, compensated. ABIEL DASH MD CM:PNTRANS [id number] ABIEL DASH MD 04/14/17 1042 interface
--- NOTE | ~2017-04-05 | PR ---
[place], [place] PROGRESS NOTE [id number] #: [id number] ROOM: 506 DOCTOR: ABIEL DASH MD BIRTHDATE: [birth year] DOS: 04/08/2017 SUBJECTIVE: The patient with some fever, leukocytosis with white cell count of 17,000 and diarrhea with abdominal distention and some discomfort, unable to provide much history. PHYSICAL EXAMINATION: VITAL SIGNS: Blood pressure 132/56, heart rate 90 beats per minute, breathing 18 times per minute, temperature going from 98-100.5 degrees Fahrenheit. GENERAL APPEARANCE: The patient is alert and oriented x 3, in no visible distress. HEENT AND NECK: Exam within normal limits. CARDIOVASCULAR SYSTEM: Heart rate is regular in rate and rhythm. S1 and S2 normally audible. LUNGS: Clear to auscultation. ABDOMEN: Abdominal distention and some discomfort in the right upper and lower quadrant on deep palpation. Bowel sounds are decreased. EXTREMITIES: Without significant cyanosis or edema. IMPRESSION: 1. The patient with leukocytosis, abdominal distention and diarrhea with abdominal tenderness. I have consulted Infectious Disease specialist to see her and I will order a CAT scan of her abdomen and pelvis along with stool for C. diff for further evaluation. Blood cultures were performed with fever and serum electrolytes and blood counts will be monitored on daily basis. 2. Urinary tract infection being treated for Klebsiella. 3. Possible acute over chronic C. diff colitis. I will check the patient's stool for infection. 4. Right hip fracture. The patient waiting for open reduction and internal fixation. ABIEL DASH MD CM:PNTRANS [id number] ABIEL DASH MD 04/08/17 0945 interface
--- NOTE | ~2017-04-05 | PR ---
[place], [place] PROGRESS NOTE [id number] #: [id number] ROOM: 506 DOCTOR: JONAS JACKSON MD BIRTHDATE: [birth year] DOS: SUBJECTIVE: The patient is about the same, does not have any new complaints. She is awaiting surgery. PHYSICAL EXAMINATION: VITAL SIGNS: Graphic trend shows blood pressure of 128/66, pulse of 86, respirations 14, temperature 98.2. LUNGS: Diminished breath sounds, clear. HEART: Regular. ABDOMEN: Obese, soft. EXTREMITIES: Without any edema. ASSESSMENT AND PLAN: 1. Right hip fracture. The patient is awaiting surgical consultation with Dr. Carrillo. 2. Elevated white cell count, possibly from stress effect as well as urinary tract infection with Klebsiella. The patient also has a known history of Clostridium difficile. We will need workup if the white cell count is persistently elevated. Dr. Moraatya has cleared the patient for surgery and the patient is already on schedule for surgery this morning. JONAS JACKSON MD CM:PNTRANS 1 2 JONAS JACKSON MD 04/07/17911 interface
--- NOTE | ~2017-04-05 | O ---
[place], [place] OPERATIVE NOTE NAME: DOV MOLINA [facility] #: [id number] UNIT #: [id number] ROOM: 506 DOCTOR: BILLY CARRILLO DO BIRTHDATE: [birth year] DOS: 04/16/2017 PREOPERATIVE DIAGNOSIS: Right hip intertrochanteric fracture. POSTOPERATIVE DIAGNOSIS: Right hip intertrochanteric fracture. OPERATIVE PROCEDURE: Right hip intertrochanteric fracture with trochanteric nail fixation. SURGEON: Billy Carrillo DO. PRACTICE PHYSICIAN: Suzie. ANESTHESIA: ISAIAS Shelton. INDICATIONS: The patient is a 66-year-old female who is reported to have fallen at home approximately 12 days ago. The patient was admitted to the hospital and x-rays confirmed the right hip intertrochanteric fracture. Surgery had been postponed due to medical instability. The patient was cleared today for surgery. The risks and benefits of the procedure had been explained to the patient and her family preoperatively. Preoperative labs and x-rays were obtained. PROCEDURE IN DETAIL: The right hip was marked in the holding area. The patient was brought to the operative suite. Spinal anesthetic was performed by Anesthesia. The patient was placed supine on the fracture table. The right lower extremity was extended and slight traction applied. The left lower extremity was flexed and externally rotated. Timeout was performed. The right lower extremity was prepped and draped in the usual orthopedic fashion. The fracture site was evaluated under C-arm. The traction and rotation was evaluated until an acceptable reduction was obtained. The area proximal to the greater trochanter was injected with Marcaine 0.5% with epinephrine. A longitudinal incision was made just proximal to the greater trochanter. Subcutaneous tissue was spread, as was the fascia down to the level of the greater trochanter. A partially threaded guidewire was placed from proximal to distal through the greater trochanter into the femoral shaft. Position was evaluated under C-arm in multiple planes. When this was found to be acceptable, the reamer was utilized with a soft tissue protector over the guidewire to open the proximal portion of the femur. This was followed by placement of the Synthes 10 mm x 130 degrees x 107 mm length trochanteric nail. This was advanced under C-arm guidance from proximal to distal until the opening for the helical blade aligned with the mid portion of the femoral neck. This was evaluated under multiple angles. When this was found to be adequate, the triple cannula guide system was placed at the 130 degree angle and advanced to the level of the skin. The skin was injected with Marcaine 0.5% with epinephrine. Longitudinal incision was made. Subcutaneous tissue was spread down to the level of fascia. The fascia was divided with hemostats down to the level of the bone. The trocars were advanced to the level of the bone. The [place], [place] OPERATIVE NOTE NAME: DOV MOLINA UNIT #: [id number] ROOM: [facility] DOCTOR: BILLY CARRILLO DO BIRTHDATE: [birth year] inner trocar was removed and a partially threaded guidewire was placed from lateral to medial through the femoral neck and into the head. This was evaluated under C-arm guidance and adjusted until appropriate in AP and lateral position. The length was measured. The reamer was set at 90 mm and an 11 mm x 90 mm T1 helical blade was advanced over the guidewire. Positioning was evaluated under C-arm in multiple planes. The locking screw was tightened at the proximal trochanteric nail. When this was completed, the cannulas for the helical blade were removed. A final distal locking screw was placed through the guide with a cannulated system, which was advanced to the level of the skin. Skin was injected with Marcaine 0.5% with epinephrine. Longitudinal incision was made. A hemostat was used to divide the fascia to the level of the bone. The trocar was advanced. A calibrated drill bit was utilized from lateral to medial through the guide system. The length was measured of the drill bit and found to be 34 mm in length. A 5.0 mm locking screw, 34 mm in length was advanced by hand through the cannula in the distal portion of the trochanteric nail. When this was completed, the C-arm was utilized to evaluate the reduction as well as the positioning of the trochanteric helical blade and locking screw. The external guide was removed. The x-rays were repeated. The areas of fixation were copiously irrigated with normal saline. The proximal incision was closed with 0 Vicryl for the fascial layers, followed by 2-0 Vicryl and skin david. The small incisions for the helical blade and locking screw were closed with 2-0 Vicryl, followed by skin david. Xeroform, 4 x 4s, ABDs and Tegaderm were applied for the dressing. The patient was returned to a supine position. Sponge and needle count correct. ESTIMATED BLOOD LOSS: 100 mL. The patient was taken to recovery room in satisfactory condition. SPECIMENS: None. DRAINS: None. PACKING: None. COMPLICATIONS: None. IMPLANTS: Synthes 10 mm x 130 degrees x 170 mm trochanteric nail T1, 11 mm x 90 mm T1 helical blade, 5.0 mm x 34 mm T1 locking screw. PREOPERATIVE ANTIBIOTICS: Vancomycin 750 mg. [place], [place] OPERATIVE NOTE NAME: DOV MOLINA Kumar UNIT #: [id number] ROOM: [facility] DOCTOR: BILLY CARRILLO DO BIRTHDATE: [birth year] BILLY CARRILLO DO CM:OPRECORD:OPERATIVE NOTE 10 53 BILLY CARRILLO DO 04/16/171951 interface
--- NOTE | ~2017-04-05 | PR ---
[place], [place] PROGRESS NOTE NAME: DOV MOLINA [facility] #: [id number] UNIT #: [id number] ROOM: 506 DOCTOR: ABIEL DASH MD BIRTHDATE: [birth year] DOS: 04/13/2017 SUBJECTIVE: The patient more alert and oriented and feeling much better and communicating. OBJECTIVE: VITAL SIGNS: Blood pressure 154/76, heart rate 88 beats per minute, breathing 16 times per minute, temperature 98.6 degrees Fahrenheit. GENERAL APPEARANCE: The patient is alert and oriented x 3, in no visible distress HEENT AND NECK: Exam within normal limits. CARDIOVASCULAR SYSTEM: Heart rate is regular in rate and rhythm. S1 and S2 normally audible. LUNGS: Clear to auscultation. ABDOMEN: Soft, nontender. No obvious organomegaly. Bowel sounds are present. EXTREMITIES: Without significant cyanosis or edema. IMPRESSION AND PLAN: 1. The patient with right hip fracture, waiting for surgery. Dr. Carrillo is waiting for a white cell count and leukocytosis to normalize before surgery. 2. Chronic Clostridium difficile colitis with diarrhea and sepsis, resolving. The patient is being followed by Infectious Disease specialist, Dr. Vera and she remains on oral vancomycin. 3. Mixed hyperlipidemia, treated with simvastatin. 4. Hypothyroidism, treated with levothyroxine. 5. Benign essential hypertension, treated and controlled with nifedipine. ABIEL DASH MD CM:PNTRANS 42 [phone] ABIEL DASH MD 04/13/171933 interface
--- NOTE | ~2017-04-05 | PR ---
[place], [place] PROGRESS NOTE NAME: DOV MOLINA UNIT #: [id number] ROOM: 506 DOCTOR: JONAS JACKSON MD BIRTHDATE: [birth year] DOS: SUBJECTIVE: The patient is up in bed this morning, awake and alert and oriented, complains of discomfort in her leg. She has not had any diarrhea during the last 12 hours. OBJECTIVE: VITAL SIGNS: Blood pressure is 161/74, pulse of 82, respirations 18, temperature 98.3. LUNGS: Diminished breath sounds. HEART: Regular. ABDOMEN: Obese, soft, less distended. EXTREMITIES: Without any edema. Right leg externally rotated. ASSESSMENT AND PLAN: 1. Diffuse colitis from C. diff with resultant ileus pattern. Her NG tube has been removed and she has been started on vancomycin. We will also make the Flagyl p.o. 2. Recent urinary tract infection with Klebsiella on IV Rocephin, hoping that the white cell count comes down with these treatment plans and the patient hopefully can have surgery early next week. 3. Right hip fracture on subcutaneous heparin. 4. Anemia. Blood transfusion was ordered, again awaiting the labs this morning. JONAS JACKSON MD CM:PNTISH [id number] JONAS JACKSON MD 04/11/17 0324 interface
--- NOTE | ~2017-04-05 | PR ---
[place], [place] PROGRESS NOTE NAME: DOV MOLINA UNIT #: [id number] ROOM: 506 DOCTOR: ABIEL DASH MD BIRTHDATE: [birth year] DOS: 04/15/2017 SUBJECTIVE: The patient did not go for right hip nailing procedure today because her potassium was very low. OBJECTIVE: VITAL SIGNS: Blood pressure 164/74, heart rate of 76 beats per minute, afebrile. GENERAL APPEARANCE: The patient is alert and oriented x 3, in no visible distress, generalized weakness. HEENT AND NECK: Exam within normal limits. CARDIOVASCULAR SYSTEM: Heart rate is regular in rate and rhythm. S1 and S2 normally audible. LUNGS: Clear to auscultation. ABDOMEN: Soft, nontender. No obvious organomegaly. Bowel sounds are present. EXTREMITIES: Without significant cyanosis or edema. External rotation of the right foot. IMPRESSION: 1. The patient has severe hypokalemia related to diarrhea from Clostridium difficile colitis, which is being treated. Extra potassium was given and her potassium improved to 3.2. I will give her more potassium and repeat her potassium levels tomorrow. The patient also gets 120 mEq of potassium chloride daily and somehow I cannot see that in her present medication list and it will be restarted. 2. Chronic persistent Clostridium difficile colitis. This was discussed with Dr. Vera, the ID specialist that we will give her a prolonged course of oral vancomycin. The patient's leukocytosis has improved with retreatment with vancomycin. It was only 12,000 today. 3. Severe protein calorie malnutrition and adult failure to thrive with suboptimal prognosis. 4. Acute right hip fracture, for which patient is waiting for surgery by Dr. Carrillo. 5. Mixed hyperlipidemia, treated with simvastatin. 6. Hypothyroidism, replaced with levothyroxine. 7. Benign essential hypertension, with improved blood pressures with treatment. 8. Chronic diastolic type congestive heart failure, compensated. [place], [place] PROGRESS NOTE NAME: DOV MOLINA UNIT #: [id number] ROOM: 506 DOCTOR: ABIEL DASH MD BIRTHDATE: [birth year] ABIEL DASH MD CM:PNTRANS [phone] [id number] ABIEL DASH MD 04/15/172048 interface
--- NOTE | ~2017-04-05 | PR ---
[place], [place] PROGRESS NOTE NAME: ODV MOLINA UNIT #: [id number] ROOM: 506 DOCTOR: JONAS JACKSON MD BIRTHDATE: [birth year] DOS: SUBJECTIVE: The patient is about the same, does not have much change. Her appetite is poor and she refuses to eat any food. OBJECTIVE: VITAL SIGNS: Graphic trend shows pressure 170/71, pulse of 78, respirations 18, temperature 97.7. LUNGS: Diminished breath sounds. HEART: Regular. ABDOMEN: Obese, distended, pretty much the same as yesterday. EXTREMITIES: Right leg externally rotated, left within normal limits. No edema noticed LABORATORY DATA: CBC is pending. Glucose 107, BUN 30, creatinine 1.87, sodium 137, potassium 3.7, chloride 108, bicarbonate 16. Blood culture shows no bacterial growth. Clostridium difficile titers have come back negative, the second and the third one. Acute abdominal series pretty much shows the same diffusely distended gas filled colon. ASSESSMENT AND PLAN: 1. Fall with fracture of the right femur, awaiting hip surgery. 2. Clostridium difficile diarrhea, possibly resulting in elevated white cell count, already on medications. White cell count is slowly coming down to 20,000. She is on IV fluids. 3. Adult failure to thrive. Prognosis were poor and guarded, but we will continue supportive symptomatic care. I am not ready to place on hospice yet. 4. Urinary tract infection, on antibiotics. 5. Protein-calorie malnutrition, moderate, with poor p.o. intake, add Remeron. JONAS JACKSON MD CM:PNTRANS [id number] JONAS JACKSON MD 04/12/17 0214 interface
--- NOTE | ~2017-04-05 | PR ---
[place], [place] PROGRESS NOTE NAME: DOV MOLINA [facility] #: [id number] UNIT #: [id number] ROOM: 506 DOCTOR: ABIEL DASH MD BIRTHDATE: [birth year] DOS: 04/18/2017 SUBJECTIVE: The patient is feeling about the same. OBJECTIVE: VITAL SIGNS: Blood pressure 157/82, heart rate 79 beats per minute, breathing 20 times per minute, temperature 98 degrees Fahrenheit. GENERAL APPEARANCE: Generalized weakness. HEENT AND NECK: Exam within normal limits. CARDIOVASCULAR SYSTEM: Heart rate is regular in rate and rhythm. S1 and S2 normally audible. LUNGS: Clear to auscultation. ABDOMEN: Soft, nontender. No obvious organomegaly. Bowel sounds are present. EXTREMITIES: Without significant cyanosis or edema. IMPRESSION: 1. The patient is status post milagros placement for intertrochanteric fracture of the right hip, doing well. No signs of any local infection. 2. Chronic Clostridium difficile colitis with white cell count getting elevated to 17,400. The patient is being followed by Infectious Disease specialist, Dr. Vera. Dr. Vera is considering fecal transplant for the patient. 3. Recurrent and persistent hypokalemia related to chronic diarrhea, which is from Clostridium difficile colitis. 4. Chronic diastolic type congestive heart failure, compensated. 5. Benign essential hypertension. Blood pressures are better controlled now. 6. Mixed hyperlipidemia treated with simvastatin. 7. Hypothyroidism, replaced with levothyroxine. ABIEL DASH MD CM:PNTRANS [id number] ABIEL DASH MD 04/18/172043 interface
--- NOTE | ~2017-04-05 | PR ---
[place], [place] PROGRESS NOTE NAME: DOV MOLINA [facility] #: [id number] UNIT #: [id number] ROOM: 506 DOCTOR: TARSHA PADRON,MAY BIRTHDATE: [birth year] DOS: 04/10/2017 SUBJECTIVE: The patient is a 66-year-old female who is being followed for C. diff colitis. She also had Klebsiella bacteriuria. She is currently on oral Flagyl, oral vancomycin. Vancomycin was started yesterday afternoon at 250 mg p.o. q.i.d. Her WBCs have continued to climb. She is up to 25.5. She continues to have significant abdominal pain, also complains of diarrhea. No nausea or vomiting. She is not eating. She remains on IV fluids. She is a DNR-CC at this point. She has been afebrile. LABORATORY DATA: Show WBC is 25.5, platelets 474. BUN 36, creatinine 2.44. C. diff was positive on April 08. Urine culture was positive for Klebsiella on April 05. Blood cultures have been negative. CURRENT MEDICATIONS: Oral vancomycin and Flagyl, which was switched from IV to oral, Procardia, heparin, Colace, Synthroid, Zocor, Lactinex, Toprol, Apresoline, Zofran, Dilaudid, Harmon. PHYSICAL EXAMINATION: VITAL SIGNS: Show temperature 98.1, pulse 80, respirations 18, BP 139/64. GENERAL: A 66-year-old female, nontoxic in appearance. HEAD, EYES, EARS, NOSE AND THROAT: Normocephalic. No thrush. LUNGS: Clear to auscultation bilaterally. Respirations even and unlabored. HEART: Regular rhythm with murmur noted. ABDOMEN: Very distended, high pitched bowel sounds, exquisite tenderness. EXTREMITIES: Mild lower extremity edema. GENITOURINARY: Abrillas catheter with clear doe urine. ASSESSMENT AND PLAN: Severe Clostridium difficile colitis. I reviewed the abdominal CT from the as well. She had diffuse colitis at that time. Her vancomycin needs to be increased to 500 mg p.o. q. 6 hours, stop the Flagyl. Get a stat abdominal flat plate to evaluate for possible toxic megacolon, would add IV Flagyl if that does come back with toxic megacolon and she would need a surgical consult if the family wants anything done. She is listed as a DNR-CC. However, she is still receiving IV fluids, etc. Therefore, this appears to be somewhat drake territory. Clostridium difficile is recurrent and if she recovers, she will need oral vancomycin wean. Case discussed with Dr. Susan Young. MAY NEREIDA WILLINGHAM [place], [place] PROGRESS NOTE NAME: MOLINADOV M UNIT #: [id number] ROOM: 506 DOCTOR: TARSHA PADRON BIRTHDATE: [birth year] SUSAN YOUNG MD CM:PNTRANS [id number] TARSHA PADRON 04/11/17 0521 interface
--- NOTE | ~2017-04-05 | PR ---
[place], [place] PROGRESS NOTE NAME: DOV MOLINA UNIT #: [id number] ROOM: 506 DOCTOR: HECTOR BUCKLEY,SUSAN Rockwell BIRTHDATE: [birth year] DOS: 04/10/2017 ADDENDUM After reviewing the chart, labs and microbiology, I agree with the above plans as described. Follow patient up clinically. Make appropriate changes in therapy. SUSAN YOUNG MD CM:PNTRANS 40 51 SUSAN YOUNG MD 04/10/172050 interface
--- NOTE | ~2017-04-05 | PR ---
[place], [place] PROGRESS NOTE [id number] UNIT #: [id number] ROOM: 506 DOCTOR: JONAS JACKSON MD BIRTHDATE: [birth year] DOS: 04/12/2017 SUBJECTIVE: The patient is doing better, does not have any new complaints. She does not have much pain in her abdomen. OBJECTIVE: VITAL SIGNS: Graphic trend shows a pressure of 182/88, pulse of 80, respirations 18, temperature 97.4. LUNGS: Diminished breath sounds. HEART: Regular. ABDOMEN: Obese, distended, which is no different than yesterday. Hyperactive bowel sounds. EXTREMITIES: Without any edema. Right leg externally rotated, shortened. ASSESSMENT AND PLAN: 1. Hip fracture. Hoping she would get surgery once the white cell count comes down. 2. Clostridium difficile diarrhea with sepsis pattern. Blood cultures so far all have come back negative. She is on treatment plan and slowly improving, both clinically as well as lab march. The labs for this morning are still pending. 3. Acute kidney injury with hypokalemia, supplementation was given and this morning's labs are pending. Address the lab findings once we have the results. JONAS JACKSON MD CM:PNTRANS [phone] JONAS JACKSON MD 04/12/17 1302 interface
--- NOTE | ~2017-04-05 | PR ---
[place], [place] PROGRESS NOTE NAME: DOV MOLINA [facility] #: [id number] UNIT #: [id number] ROOM: 506 DOCTOR: ABIEL DASH MD BIRTHDATE: [birth year] DOS: 04/16/2017 SUBJECTIVE: The patient is awake, alert, oriented, does have chronic diarrhea. OBJECTIVE: VITAL SIGNS: Blood pressure 144/81, heart rate 75 beats per minute, breathing 20 times per minute, temperature 97.5 degrees Fahrenheit. GENERAL APPEARANCE: The patient is alert and oriented x 3, in no visible distress. HEENT AND NECK: Exam within normal limits. CARDIOVASCULAR SYSTEM: Heart rate is regular in rate and rhythm. S1 and S2 normally audible. LUNGS: Clear to auscultation. ABDOMEN: Soft, nontender. No obvious organomegaly. Bowel sounds are present. EXTREMITIES: Without significant cyanosis or edema. IMPRESSION: 1. Severe chronic hypokalemia with potassium levels normalized with extra potassium supplements. 2. Acute over chronic Clostridium difficile colitis, being followed by Infectious Disease specialist, Dr. Vera, and the patient is getting treated with prolonged oral vancomycin. The white cell count is still not normalized, it is 13,600. 3. Acute right hip fracture for which patient is waiting for surgical repair by Dr. Carrillo. 4. Mixed hyperlipidemia, treated with simvastatin. 5. Hypothyroidism, replaced with levothyroxine. 6. Benign essential hypertension. Blood pressure is being monitored and treated. 7. Chronic diastolic type congestive heart failure, compensated. ABIEL DASH MD CM:PNTRANS [phone] ABIEL DASH MD 04/16/172058 interface
--- NOTE | ~2017-04-05 | WRIGHTHP ---
[place], [place] PATIENT HISTORY AND PHYSICAL EXAM NAME: DOV MOLINA [facility] #: [id number] UNIT #: [id number] ROOM: 506 DOCTOR: ABIEL DASH MD BIRTHDATE: [birth year] DOS: 04/05/2017 HISTORY OF PRESENT ILLNESS: The patient is a 66-year-old female with past medical history of: 1. Recurrent C. diff colitis. 2. Adult failure to thrive. The patient lives with her daughter at home and barely able to transfer from bed to bedside commode or use a walker. 3. Chronic diastolic type congestive heart failure. 4. History of pericardial window placement for pericardial effusion. 5. Mixed hyperlipidemia. 6. Benign essential hypertension. 7. History of recurrent falls. 8. Hypothyroidism. 9. Severe protein calorie malnutrition. 10. Nicotine smoke dependence. 11. Vitamin D deficiency. The patient apparently fell at home, resulting in right hip fracture and severe pain. The patient is unable to provide much history and she was brought to the Emergency Department and recommended for admission for fixing the right hip. The patient already had a poor functional status at home and was barely moving from her bed to the bedside commode and living at home with help of her daughter. The patient's family was considering placing her to the fdc for long-term care recently. No chest pain. No shortness of breath. No GI or urinary symptoms. REVIEW OF SYSTEMS: LUNGS: No increasing shortness of breath. GASTROINTESTINAL: No nausea, vomiting, diarrhea or constipation. CARDIOVASCULAR: No chest pains or palpitations. HOME MEDICATIONS: Aspirin 81 mg a day, vitamin D supplements, iron supplements, levothyroxine. ALLERGIES: No known drug allergies. FAMILY HISTORY: Noncontributory. PHYSICAL EXAMINATION: GENERAL: Alert, oriented, poor historian, in no visible distress, generalized weakness and adult failure to thrive with generalized muscle wasting. HEENT AND NECK: Extraocular movements are intact. Sclerae are anicteric. Oral mucosa is moist and clean. No obvious facial weakness. Neck is supple without any lymphadenopathy. No thyromegaly. No JVD. No carotid arterial bruits. LUNGS: Clear to auscultation. No wheezing. No rhonchi. CARDIOVASCULAR SYSTEM: Heart rate is regular in rate and rhythm. S1 and S2 normally audible. No significant murmur or any other abnormal cardiac sounds. ABDOMEN: Soft, nontender. No obvious organomegaly. Bowel sounds are present. No obvious herniation. [place], [place] PATIENT HISTORY AND PHYSICAL EXAM NAME: DOV MOLINA UNIT #: [id number] ROOM: [facility] DOCTOR: ABIEL DASH MD BIRTHDATE: [birth year] EXTREMITIES: Without significant cyanosis or edema. Warm to touch. CENTRAL NERVOUS SYSTEM: Alert and oriented x 3. Cranial nerves II-XII are intact. Speech is normal. The patient is able to move all extremities. Normal muscle strength. Deep tendon reflexes are equal on both sides. Plantars were downgoing. LABORATORY DATA: White cell count of 14,000, hemoglobin 8.9. Urine culture is growing heavy gram-negative bacilli. BUN and creatinine 17 and 1.4, potassium level normal at 3.7. IMPRESSION AND PLAN: 1. The patient with acute fracture of the right intertrochanteric area, nondisplaced, requires surgical repair. Dr. Carrillo, the orthopedic surgeon is following her. 2. Urinary tract infection with urine cultures growing heavy gram-negative bacilli. The patient started on Zosyn for treatment. The patient's urine appears infected. 3. Old age, adult failure to thrive and advanced disability. I will get a Social Service consult for fdc placement as requested by her family. 4. Severe protein calorie malnutrition. The patient to be followed by Dietary and encouraged nutritional supplements. 5. The patient is overall in poor health and has high risk, because of this patient has high risk for surgical and postsurgical complications, but she requires hip repair to help her with severe pain, which she is having because of the fracture, to improve the quality of her life. If the patient does not undergo hip fixation, then she will be in pain almost constantly day and night for a long time until the hip heals. The patient is also not a good candidate for healing because of her malnourished status. 6. Benign essential hypertension with elevated blood pressure secondary to pain, better controlled now. The patient is being evaluated and treated by Cardiology. 7. Significant right shoulder pains, to be further evaluated with an x-ray DICTATION ENDS HERE [place], [place] PATIENT HISTORY AND PHYSICAL EXAM NAME: DOV MOLINA UNIT #: [id number] ROOM: 506 DOCTOR: ABIEL DASH MD BIRTHDATE: [birth year] ABIEL DASH MD CM:PHYS:PATIENT HISTORY AND PHYSICAL EXAMINATION ABIEL DASH MD 04/06/17 0957 interface
--- NOTE | ~2017-04-05 | PR ---
[place], [place] PROGRESS NOTE NAME: DOV MOLINA UNIT #: [id number] ROOM: 506 DOCTOR: JONAS JACKSON MD BIRTHDATE: [birth year] DOS: 04/09/2017 SUBJECTIVE: The patient is doing poorly overall. She is moaning and crying and seems slightly confused. OBJECTIVE: VITAL SIGNS: Blood pressure is 152/83, pulse of 93, respirations 18, temperature 97.4. LUNGS: Diminished breath sounds. HEART: Regular, tachycardic. ABDOMEN: Obese, distended. Umbilicus everted. Bowel sounds hypoactive to absent. EXTREMITIES: Without any edema. Right leg is externally rotated and shortened. ASSESSMENT AND PLAN: 1. Right hip fracture. The patient is seen by Dr. Carrillo. 2. Elevated white cell count of possible underlying C. diff, difficult to tell with the C. diff titers still pending. Could empirically place the patient on Flagyl. 3. Ileus, most likely responsible for the abdominal distention. She has an NG tube, which is draining a brownish liquid, so we will ask surgical opinion on this patient. 4. Deep vein thrombosis prophylaxis with subcutaneous heparin. 5. Anemia. We will transfuse when the hemoglobin drops below 7.2. Overall, prognosis remains poor and guarded for this patient with multiple medical problems. We will wait for surgical opinion before further changes will be made. JONAS JACKSON MD CM:PNTRANS [id number] JONAS JACKSON MD 04/10/17 0334 interface
--- NOTE | ~2017-04-05 | PR ---
[place], [place] PROGRESS NOTE NAME: DOV MOLINA [facility] #: [id number] UNIT #: [id number] ROOM: 506 DOCTOR: ABIEL DASH MD BIRTHDATE: [birth year] DOS: 04/17/2017 SUBJECTIVE: The patient continues to have chronic diarrhea. OBJECTIVE: VITAL SIGNS: Blood pressure 164/85, heart rate of 62 beats per minute, breathing normally, afebrile; temperature of 98 degrees Fahrenheit. GENERAL APPEARANCE: The patient is alert and oriented x 3, in no visible distress. Generalized weakness. HEENT AND NECK: Exam within normal limits. CARDIOVASCULAR SYSTEM: Heart rate is regular in rate and rhythm. S1 and S2 normally audible. LUNGS: Clear to auscultation. ABDOMEN: Soft, nontender. No obvious organomegaly. Bowel sounds are present. EXTREMITIES: Without significant cyanosis or edema. IMPRESSION AND PLAN: 1. Acute right hip intertrochanteric fracture, affixed with intramedullary milagros. 2. Chronic Clostridium difficile colitis, resistant to treatment; is being followed by Infectious Disease specialist and the patient is on oral vancomycin. 3. Leukocytosis related to recent surgery and chronic Clostridium difficile colitis. 4. Recurrent hypokalemia, replaced with extra potassium supplements and has normalized. 5. Benign essential hypertension with elevated blood pressures. The patient is on nifedipine, which I will replace with Norvasc, and adjust treatment to normalize her blood pressure. The patient is already on metoprolol and hydralazine. 6. Chronic diastolic-type congestive heart failure, compensated. 7. Hypothyroidism, replaced with levothyroxine. 8. Mixed hyperlipidemia, treated with simvastatin. ABIEL DASH MD CM:PNTRANS [id number] ABIEL DASH MD 04/18/17 0046 interface
--- NOTE | ~2017-04-05 | DS ---
[place], [place] DISCHARGE SUMMARY NAME: DOV MOLINA [facility] #: [id number] UNIT #: [id number] ROOM: 506 DOCTOR: ABIEL DASH MD BIRTHDATE: [birth year] DOS: 04/19/2017 DISCHARGE DIAGNOSES: 1. Acute over chronic Clostridium difficile colitis, improved with treatment. 2. Acute intertrochanteric fracture of the right hip, status post milagros placement by Dr. Carrillo. 3. Severe leukocytosis related to Clostridium difficile colitis. 4. Hypokalemia related to chronic diarrhea from Clostridium difficile colitis. 5. Chronic diastolic type congestive heart failure. 6. Benign essential hypertension. 7. Mixed hyperlipidemia. 8. Hypothyroidism. 9. Adult failure to thrive. 10. History of pericardial window placement for pericardial effusion. 11. Recurrent falls in the past. 12. Severe protein calorie malnutrition. 13. Nicotine smoke dependence. 14. The patient with milagros placement for intertrochanteric fracture of the right hip by Dr. Carrillo. HOSPITAL COURSE: The patient presented after a fall and right intertrochanteric hip fracture. Before patient could be taken for surgery, she developed acute sickness with leukocytosis, altered mental status. She became very weak and her appetite became very poor. The patient was found to have recurrent C. diff colitis with severe leukocytosis. The patient was treated with hydration with normal saline and was kept on oral vancomycin, which was followed by Dr. Vera, the ID specialist. As her leukocytosis improved, her right hip surgery which blade was finally performed and now she is working with Physical Therapy. The patient's leukocytosis has resolved today and she will be sent over to the half-way on instructions for oral vancomycin to be given by Dr. Vera. Severe protein calorie malnutrition and adult failure to thrive with suboptimal long-term prognosis. Nicotine smoke dependence and COPD, centrilobular emphysema with chronic shortness of breath. Mixed hyperlipidemia, treated with simvastatin and followed. Chronic diastolic type CHF, compensated. Benign essential hypertension, treated and controlled. White cell count of 10,800 prior to discharge, hemoglobin 10, normal platelets, except for slightly elevated at 475,000. DISCHARGE MANAGEMENT: Amlodipine 10 mg a day, potassium chloride 40 mEq b.i.d., check potassium levels every Wednesday and , levothyroxine 137 mcg daily, simvastatin 20 mg daily, lactobacillus 2 tablets t.i.d., metoprolol succinate [place], [place] DISCHARGE SUMMARY NAME: DOV MOLINA UNIT #: [id number] ROOM: 506 DOCTOR: ABIEL DASH MD BIRTHDATE: [birth year] actually 50 mg b.i.d., Tylenol 1000 mg t.i.d. p.r.n. for pain. Consult Physical Therapy. One hour's time was spent on patient's discharge including discussion with consultants, nursing staff, patient and family and the discharge procedure. ABIEL DASH MD CM:DISCHARG [id number] ABIEL DASH MD 04/19/17 1136 interface
[~2017-04-05 08:49] MED LIST changes: -ASPIRIN ADULT L81 M2 PO; +ASPIRIN ADULT L81 MG PO; +REMEDY CALAZIME4 GM T; +SYNTHROID137 MCG PO; +VANCOMYCIN; +[UNRECOGNIZED DRUG - OTHER] PO
[2017-04-05 09:40] LABS: BASO # 0.1 10*3/uL (0.0-0.1); BASO % 0.4 % (0.0-1.0); EOS # 0.1 10*3/uL (0.0-0.4); EOS % 0.9 % (1.0-4.0); HEMATOCRIT 30.1 % (37.0-47.0); HEMOGLOBIN 9.4 g/dl (12.0-16.0); LYMPH # 1.6 10*3/uL (1.3-4.4); LYMPH % 12.8 % (27.0-41.0); MEAN CELL VOLUME 90.1 fl (81.0-99.0); MEAN CORPUSCULAR HGB 28.1 pg (27.0-31.0); MEAN CORPUSCULAR HGB CONC 31.2 g/dl (33.0-37.0); MEAN PLATELET VOLUME 8.3 fl (9.6-12.3); MONO # 0.8 10*3/uL (0.1-1.0); MONO % 6.7 % (3.0-9.0); NEUT # 9.8 10*3/uL (2.3-7.9); NEUT % 78.2 % (47.0-73.0); PLATELET COUNT AUTOMATED 587 10*3/uL (130-400); RED BLOOD COUNT 3.34 10*6/uL (4.10-5.10); WHITE BLOOD COUNT 12.5 10*3/uL (4.8-10.8)
[2017-04-05 09:49] LABS: ACT PARTIAL THROMBO TIME 26.3 SECONDS (20.8-31.5)
[2017-04-05 09:54] LABS: ALBUMIN 2.7 gm/dl (3.1-4.5); CREATININE 1.14 mg/dL (0.55-1.02); POTASSIUM 3.7 mmol/L (3.5-5.1); TOTAL PROTEIN 6.7 gm/dL (6.4-8.2)
[2017-04-05] MEDS ORDERED: POTASSIUM CHLO20 MEQ PO (12:20)
[2017-04-05 13:14] LABS: BILIRUBIN NEGATIVE (NEGATIVE); BLOOD 3+ (NEGATIVE); CLARITY TURBID (CLEAR); COLOR YELLOW (YELLOW); GLUCOSE NEGATIVE (NEGATIVE); KETONE NEGATIVE (NEGATIVE); SPECIFIC GRAVITY 1.025 (1.005-1.030)
[2017-04-05 13:15] LABS: LEUKO ESTERASE 3+ (NEGATIVE); NITRITE POSITIVE (NEGATIVE); UROBILINOGEN 0.2 E.U./dl (0.2-1.0)
[2017-04-05 13:46] LABS: BACTERIA 4+; WBC TNTC wbc/hpf (0-5)
[2017-04-06] VITALS (10 sets, daily range): BP systolic 116–184; BP diastolic 74–88
[2017-04-06 08:20] LABS: BASO % 0.3 % (0.0-1.0); EOS # 0.1 10*3/uL (0.0-0.4); EOS % 0.6 % (1.0-4.0); HEMATOCRIT 28.2 % (37.0-47.0); HEMOGLOBIN 8.9 g/dl (12.0-16.0); LYMPH # 1.7 10*3/uL (1.3-4.4); LYMPH % 11.7 % (27.0-41.0); MEAN CELL VOLUME 90.1 fl (81.0-99.0); MEAN CORPUSCULAR HGB 28.4 pg (27.0-31.0); MEAN CORPUSCULAR HGB CONC 31.6 g/dl (33.0-37.0); MEAN PLATELET VOLUME 8.5 fl (9.6-12.3); MONO # 1.2 10*3/uL (0.1-1.0); MONO % 8.6 % (3.0-9.0); NEUT # 11.1 10*3/uL (2.3-7.9); NEUT % 77.7 % (47.0-73.0); PLATELET COUNT AUTOMATED 595 10*3/uL (130-400); RED BLOOD COUNT 3.13 10*6/uL (4.10-5.10); RED CELL DISTRI WIDTH 17.2 % (0-14.5); WHITE BLOOD COUNT 14.2 10*3/uL (4.8-10.8)
[2017-04-06 08:36] LABS: POTASSIUM 3.2 mmol/L (3.5-5.1)
[2017-04-07] VITALS (8 sets, daily range): BP systolic 128–182; BP diastolic 66–84
[2017-04-07 07:17] LABS: BASO # 0.1 10*3/uL (0.0-0.1); BASO % 0.3 % (0.0-1.0); EOS # 0.3 10*3/uL (0.0-0.4); EOS % 1.8 % (1.0-4.0); HEMATOCRIT 25.8 % (37.0-47.0); HEMOGLOBIN 7.9 g/dl (12.0-16.0); LYMPH # 1.3 10*3/uL (1.3-4.4); LYMPH % 7.5 % (27.0-41.0); MEAN CELL VOLUME 90.8 fl (81.0-99.0); MEAN CORPUSCULAR HGB 27.8 pg (27.0-31.0); MEAN CORPUSCULAR HGB CONC 30.6 g/dl (33.0-37.0); MEAN PLATELET VOLUME 8.7 fl (9.6-12.3); MONO # 1.1 10*3/uL (0.1-1.0); MONO % 6.3 % (3.0-9.0); NEUT # 13.9 10*3/uL (2.3-7.9); NEUT % 82.8 % (47.0-73.0); PLATELET COUNT AUTOMATED 546 10*3/uL (130-400); RED BLOOD COUNT 2.84 10*6/uL (4.10-5.10); RED CELL DISTRI WIDTH 17.2 % (0-14.5); WHITE BLOOD COUNT 16.8 10*3/uL (4.8-10.8)
[2017-04-07 07:41] LABS: POTASSIUM 3.8 mmol/L (3.5-5.1)
[2017-04-07 07:53] LABS: CREATININE 1.45 mg/dL (0.55-1.02)
[2017-04-07 16:46] LABS: FREE T4 2.22 ng/dl (0.76-1.46)
[2017-04-07 16:54] LABS: THYROID STIM HORMONE (HS) 3.5 uIU/ml (0.358-4.75)
[2017-04-08] VITALS (7 sets, daily range): BP systolic 132–180; BP diastolic 56–80
[2017-04-08 04:29] LABS: HEMATOCRIT 24.3 % (37.0-47.0); HEMOGLOBIN 7.5 g/dl (12.0-16.0); MEAN CELL VOLUME 90.7 fl (81.0-99.0); MEAN CORPUSCULAR HGB CONC 30.9 g/dl (33.0-37.0); MEAN PLATELET VOLUME 8.6 fl (9.6-12.3); PLATELET COUNT AUTOMATED 512 10*3/uL (130-400); RED BLOOD COUNT 2.68 10*6/uL (4.10-5.10); RED CELL DISTRI WIDTH 17.5 % (0-14.5)
[2017-04-08 05:47] LABS: OVALOCYTES FEW; PLATELET SUFFICIENCY HIGH (NORMAL); POLYCHROMASIA SLIGHT; TOTAL CELLS COUNTED 100 #CELLS
[2017-04-08 05:48] LABS: BURR CELLS FEW
[2017-04-09] VITALS (15 sets, daily range): BP systolic 124–160; BP diastolic 62–83
[2017-04-09 07:46] LABS: HEMATOCRIT 23.9 % (37.0-47.0); HEMOGLOBIN 7.4 g/dl (12.0-16.0); MEAN CELL VOLUME 91.6 fl (81.0-99.0); MEAN CORPUSCULAR HGB 28.4 pg (27.0-31.0); MEAN PLATELET VOLUME 9.3 fl (9.6-12.3); PLATELET COUNT AUTOMATED 550 10*3/uL (130-400); RED BLOOD COUNT 2.61 10*6/uL (4.10-5.10); RED CELL DISTRI WIDTH 17.8 % (0-14.5); WHITE BLOOD COUNT 25.4 10*3/uL (4.8-10.8)
[2017-04-09 08:00] LABS: CREATININE 2.36 mg/dL (0.55-1.02); POTASSIUM 3.7 mmol/L (3.5-5.1)
[2017-04-09 08:27] LABS: BASOPHILS 1 % (0-1); DOHLE BODIES FEW; PLATELET SUFFICIENCY HIGH (NORMAL); POLYCHROMASIA SLIGHT; TOTAL CELLS COUNTED 100 #CELLS; TOXIC GRANULATION MODERATE
[2017-04-10 00:20] VITALS: BP 163/72
[2017-04-10 01:20] VITALS: BP 161/74
[2017-04-10 06:45] LABS: MEAN CORPUSCULAR HGB 28.2 pg (27.0-31.0); MEAN CORPUSCULAR HGB CONC 32.9 g/dl (33.0-37.0); NUCLEATED RED BLOOD CELL 0.1 % (0.0-0.0); PLATELET COUNT AUTOMATED 474 10*3/uL (130-400); RED BLOOD COUNT 3.76 10*6/uL (4.10-5.10); RED CELL DISTRI WIDTH 19.8 % (0-14.5); WHITE BLOOD COUNT 25.5 10*3/uL (4.8-10.8)
[2017-04-10 06:56] LABS: HEMATOCRIT 32.2 % (37.0-47.0); HEMOGLOBIN 10.6 g/dl (12.0-16.0); MEAN CELL VOLUME 85.6 fl (81.0-99.0)
[2017-04-10 07:08] LABS: TOTAL CELLS COUNTED 100 #CELLS
[2017-04-10 07:09] LABS: ACANTHOCYTES FEW; BURR CELLS MODERATE; DOHLE BODIES FEW; PLATELET SUFFICIENCY HIGH (NORMAL); TOXIC GRANULATION SLIGHT
[2017-04-10 07:15] LABS: CREATININE 2.44 mg/dL (0.55-1.02); POTASSIUM 2.9 mmol/L (3.5-5.1)
[2017-04-10 08:00] VITALS: BP 154/76
[2017-04-10 12:00] VITALS: BP 148/86
[2017-04-10 16:00] VITALS: BP 139/64
[2017-04-10 20:00] VITALS: BP 157/77
[2017-04-11] VITALS: BP 160/90
[2017-04-11 04:00] VITALS: BP 150/88
[2017-04-11 06:07] LABS: CREATININE 1.87 mg/dL (0.55-1.02); POTASSIUM 2.7 mmol/L (3.5-5.1)
[2017-04-11 08:00] VITALS: BP 170/71
[2017-04-11 09:07] LABS: HEMATOCRIT 35.1 % (37.0-47.0); HEMOGLOBIN 11.2 g/dl (12.0-16.0); MEAN CELL VOLUME 87.1 fl (81.0-99.0); MEAN CORPUSCULAR HGB 27.8 pg (27.0-31.0); MEAN CORPUSCULAR HGB CONC 31.9 g/dl (33.0-37.0); MEAN PLATELET VOLUME 9.5 fl (9.6-12.3); PLATELET COUNT AUTOMATED 485 10*3/uL (130-400); RED BLOOD COUNT 4.03 10*6/uL (4.10-5.10); RED CELL DISTRI WIDTH 19.9 % (0-14.5); WHITE BLOOD COUNT 20.5 10*3/uL (4.8-10.8)
[2017-04-11 09:34] LABS: BASOPHILS 1 % (0-1); BURR CELLS MANY; PLATELET SUFFICIENCY HIGH (NORMAL); POLYCHROMASIA SLIGHT; TOTAL CELLS COUNTED 100 #CELLS
[2017-04-11 09:35] LABS: ACANTHOCYTES FEW; TOXIC GRANULATION SLIGHT; VACUOLATION OF NEUTROPHILS SLIGHT
[2017-04-11 12:00] VITALS: BP 164/67
[2017-04-11 16:00] VITALS: BP 162/83
[2017-04-11 20:00] VITALS: BP 144/80
[2017-04-12] VITALS: BP 154/74
[2017-04-12 08:00] VITALS: BP 182/88
[2017-04-12 08:40] LABS: HEMATOCRIT 40.1 % (37.0-47.0); MEAN CELL VOLUME 85.7 fl (81.0-99.0); MEAN CORPUSCULAR HGB 27.8 pg (27.0-31.0); MEAN CORPUSCULAR HGB CONC 32.4 g/dl (33.0-37.0); MEAN PLATELET VOLUME 8.6 fl (9.6-12.3); PLATELET COUNT AUTOMATED 462 10*3/uL (130-400); RED BLOOD COUNT 4.68 10*6/uL (4.10-5.10)
[2017-04-12 08:53] LABS: CREATININE 1.42 mg/dL (0.55-1.02); POTASSIUM 3.6 mmol/L (3.5-5.1)
[2017-04-12 08:59] LABS: BURR CELLS MANY; TOTAL CELLS COUNTED 100 #CELLS
[2017-04-12 09:00] LABS: PLATELET SUFFICIENCY HIGH (NORMAL)
[2017-04-12 12:00] VITALS: BP 169/89
[2017-04-12 16:00] VITALS: BP 118/69
[2017-04-12 20:00] VITALS: BP 152/64
[2017-04-13 00:26] VITALS: BP 177/90
[2017-04-13 04:00] VITALS: BP 160/82
[2017-04-13 06:22] LABS: HEMATOCRIT 36.5 % (37.0-47.0); HEMOGLOBIN 11.7 g/dl (12.0-16.0); MEAN CELL VOLUME 87.3 fl (81.0-99.0); MEAN CORPUSCULAR HGB CONC 32.1 g/dl (33.0-37.0); NUCLEATED RED BLOOD CELL 0.1 % (0.0-0.0); PLATELET COUNT AUTOMATED 428 10*3/uL (130-400); RED BLOOD COUNT 4.18 10*6/uL (4.10-5.10); RED CELL DISTRI WIDTH 19.9 % (0-14.5); WHITE BLOOD COUNT 13.7 10*3/uL (4.8-10.8)
[2017-04-13 06:29] LABS: CREATININE 1.29 mg/dL (0.55-1.02); POTASSIUM 3.1 mmol/L (3.5-5.1)
[2017-04-13 06:47] LABS: BASOPHILS 1 % (0-1); TOTAL CELLS COUNTED 100 #CELLS
[2017-04-13 06:48] LABS: BURR CELLS MODERATE; PLATELET SUFFICIENCY HIGH (NORMAL); POLYCHROMASIA SLIGHT
[2017-04-13 08:00] VITALS: BP 156/78
[2017-04-13 12:00] VITALS: BP 154/76
[2017-04-13 16:00] VITALS: BP 151/79
[2017-04-13 20:00] VITALS: BP 142/66
[2017-04-14] VITALS (8 sets, daily range): BP systolic 138–202; BP diastolic 70–94
[2017-04-14 09:30] LABS: HEMATOCRIT 38.8 % (37.0-47.0); HEMOGLOBIN 12.5 g/dl (12.0-16.0); MEAN CELL VOLUME 86.6 fl (81.0-99.0); MEAN CORPUSCULAR HGB 27.9 pg (27.0-31.0); MEAN CORPUSCULAR HGB CONC 32.2 g/dl (33.0-37.0); MEAN PLATELET VOLUME 9.1 fl (9.6-12.3); NUCLEATED RED BLOOD CELL 0.1 % (0.0-0.0); PLATELET COUNT AUTOMATED 411 10*3/uL (130-400); RED BLOOD COUNT 4.48 10*6/uL (4.10-5.10); RED CELL DISTRI WIDTH 19.8 % (0-14.5); WHITE BLOOD COUNT 13.8 10*3/uL (4.8-10.8)
[2017-04-14 10:53] LABS: BASOPHILS 1 % (0-1); TOTAL CELLS COUNTED 100 #CELLS
[2017-04-14 10:54] LABS: BURR CELLS MANY; PLATELET SUFFICIENCY HIGH (NORMAL); POLYCHROMASIA SLIGHT
[2017-04-14 11:59] LABS: CREATININE 1.15 mg/dL (0.55-1.02); POTASSIUM 3.3 mmol/L (3.5-5.1)
[2017-04-15] VITALS (8 sets, daily range): BP systolic 164–190; BP diastolic 74–88
[2017-04-15 07:17] LABS: HEMATOCRIT 36.5 % (37.0-47.0); HEMOGLOBIN 11.8 g/dl (12.0-16.0); MEAN CELL VOLUME 85.1 fl (81.0-99.0); MEAN CORPUSCULAR HGB 27.5 pg (27.0-31.0); MEAN CORPUSCULAR HGB CONC 32.3 g/dl (33.0-37.0); MEAN PLATELET VOLUME 9.3 fl (9.6-12.3); PLATELET COUNT AUTOMATED 410 10*3/uL (130-400); RED BLOOD COUNT 4.29 10*6/uL (4.10-5.10); RED CELL DISTRI WIDTH 19.9 % (0-14.5); WHITE BLOOD COUNT 11.9 10*3/uL (4.8-10.8)
[2017-04-15 07:35] LABS: BUN 15 mg/dl (7-24); CHLORIDE 112 mmol/L (98-107); CREATININE 0.99 mg/dL (0.55-1.02); POTASSIUM 2.8 mmol/L (3.5-5.1); SODIUM 138 mmol/L (136-145)
[2017-04-15 07:39] LABS: BURR CELLS MANY; OVALOCYTES FEW; PLATELET SUFFICIENCY NORMAL (NORMAL); TOTAL CELLS COUNTED 100 #CELLS; TOXIC GRANULATION SLIGHT
[2017-04-16] VITALS (13 sets, daily range): BP systolic 120–190; BP diastolic 58–90
[2017-04-16 06:46] LABS: HEMATOCRIT 33.6 % (37.0-47.0); HEMOGLOBIN 10.6 g/dl (12.0-16.0); MEAN CORPUSCULAR HGB 27.8 pg (27.0-31.0); MEAN CORPUSCULAR HGB CONC 31.5 g/dl (33.0-37.0); MEAN PLATELET VOLUME 9.3 fl (9.6-12.3); NUCLEATED RED BLOOD CELL 0.1 % (0.0-0.0); PLATELET COUNT AUTOMATED 416 10*3/uL (130-400); RED BLOOD COUNT 3.81 10*6/uL (4.10-5.10); WHITE BLOOD COUNT 13.6 10*3/uL (4.8-10.8)
[2017-04-16 06:48] LABS: MEAN CELL VOLUME 88.2 fl (81.0-99.0)
[2017-04-16 07:08] LABS: ACANTHOCYTES FEW; BASOPHILS 1 % (0-1); BURR CELLS MANY; PLATELET SUFFICIENCY HIGH (NORMAL); POLYCHROMASIA SLIGHT; TOTAL CELLS COUNTED 100 #CELLS; TOXIC GRANULATION SLIGHT
[2017-04-16 07:19] LABS: BUN 11 mg/dl (7-24); CHLORIDE 115 mmol/L (98-107); POTASSIUM 3.9 mmol/L (3.5-5.1); SODIUM 139 mmol/L (136-145)
[2017-04-16 07:20] LABS: CREATININE 0.98 mg/dL (0.55-1.02)
[2017-04-17] VITALS: BP 177/78
[2017-04-17 04:00] VITALS: BP 165/65
[2017-04-17 06:05] LABS: HEMATOCRIT 32.7 % (37.0-47.0); HEMOGLOBIN 10.3 g/dl (12.0-16.0); MEAN CELL VOLUME 88.9 fl (81.0-99.0); MEAN CORPUSCULAR HGB CONC 31.5 g/dl (33.0-37.0); MEAN PLATELET VOLUME 9.8 fl (9.6-12.3); PLATELET COUNT AUTOMATED 426 10*3/uL (130-400); RED BLOOD COUNT 3.68 10*6/uL (4.10-5.10); RED CELL DISTRI WIDTH 20.3 % (0-14.5); WHITE BLOOD COUNT 15.9 10*3/uL (4.8-10.8)
[2017-04-17 06:30] LABS: BASOPHILS 1 % (0-1); BURR CELLS MODERATE; PLATELET SUFFICIENCY HIGH (NORMAL); POLYCHROMASIA SLIGHT; TOTAL CELLS COUNTED 100 #CELLS; TOXIC GRANULATION SLIGHT
[2017-04-17 06:33] LABS: BUN 9 mg/dl (7-24); CHLORIDE 112 mmol/L (98-107); POTASSIUM 3.7 mmol/L (3.5-5.1); SODIUM 137 mmol/L (136-145)
[2017-04-17 06:34] LABS: CREATININE 0.99 mg/dL (0.55-1.02)
[2017-04-17 08:00] VITALS: BP 183/75
[2017-04-17 12:00] VITALS: BP 164/85
[2017-04-17 16:00] VITALS: BP 166/72
[2017-04-17 20:00] VITALS: BP 162/70
[2017-04-18] VITALS: BP 146/73
[2017-04-18 06:14] LABS: HEMATOCRIT 34.1 % (37.0-47.0); HEMOGLOBIN 10.4 g/dl (12.0-16.0); MEAN CELL VOLUME 88.8 fl (81.0-99.0); MEAN CORPUSCULAR HGB 27.1 pg (27.0-31.0); MEAN CORPUSCULAR HGB CONC 30.5 g/dl (33.0-37.0); MEAN PLATELET VOLUME 9.7 fl (9.6-12.3); NUCLEATED RED BLOOD CELL 0.1 % (0.0-0.0); PLATELET COUNT AUTOMATED 448 10*3/uL (130-400); RED BLOOD COUNT 3.84 10*6/uL (4.10-5.10); WHITE BLOOD COUNT 17.4 10*3/uL (4.8-10.8)
[2017-04-18 07:14] LABS: BASOPHILS 1 % (0-1); TOTAL CELLS COUNTED 100 #CELLS
[2017-04-18 07:15] LABS: BURR CELLS MODERATE; PLATELET SUFFICIENCY HIGH (NORMAL); POLYCHROMASIA SLIGHT; SCHISTOCYTES FEW; TOXIC GRANULATION SLIGHT
[2017-04-18 08:00] VITALS: BP 171/73
[2017-04-18 12:00] VITALS: BP 157/82
[2017-04-18 16:00] VITALS: BP 154/86
[2017-04-18 20:00] VITALS: BP 178/83
[2017-04-18 20:30] VITALS: BP 170/80
[2017-04-19 00:16] VITALS: BP 142/63
[2017-04-19 06:37] LABS: HEMATOCRIT 32.3 % (37.0-47.0); HEMOGLOBIN 10.3 g/dl (12.0-16.0); MEAN CELL VOLUME 88.3 fl (81.0-99.0); MEAN CORPUSCULAR HGB 28.1 pg (27.0-31.0); MEAN CORPUSCULAR HGB CONC 31.9 g/dl (33.0-37.0); MEAN PLATELET VOLUME 9.5 fl (9.6-12.3); PLATELET COUNT AUTOMATED 475 10*3/uL (130-400); RED BLOOD COUNT 3.66 10*6/uL (4.10-5.10); RED CELL DISTRI WIDTH 20.1 % (0-14.5); WHITE BLOOD COUNT 10.8 10*3/uL (4.8-10.8)
[2017-04-19 07:16] LABS: BURR CELLS MANY; PLATELET SUFFICIENCY HIGH (NORMAL); POLYCHROMASIA SLIGHT; TOTAL CELLS COUNTED 100 #CELLS
[2017-04-19 08:00] VITALS: BP 188/77
[2017-04-19 12:00] VITALS: BP 151/79
[2017-04-19 16:00] VITALS: BP 136/64
[2017-04-19] MEDS ORDERED: VANCOCIN125 M1 PO (16:04)
[2017-04-19 20:00] VITALS: BP 176/81
[2017-04-19 22:00] VITALS: BP 150/88
[2017-04-20] VITALS: BP 169/84
[2017-04-20 00:45] VITALS: BP 146/78
[2017-04-20 04:00] VITALS: BP 173/78
[2017-04-20 07:26] LABS: BASO # 0.1 10*3/uL (0.0-0.1); BASO % 0.7 % (0.0-1.0); EOS # 0.2 10*3/uL (0.0-0.4); EOS % 1.8 % (1.0-4.0); HEMATOCRIT 30.9 % (37.0-47.0); HEMOGLOBIN 9.4 g/dl (12.0-16.0); LYMPH # 2.4 10*3/uL (1.3-4.4); LYMPH % 20.8 % (27.0-41.0); MEAN CELL VOLUME 89.8 fl (81.0-99.0); MEAN CORPUSCULAR HGB 27.3 pg (27.0-31.0); MEAN CORPUSCULAR HGB CONC 30.4 g/dl (33.0-37.0); MEAN PLATELET VOLUME 9.7 fl (9.6-12.3); MONO # 0.9 10*3/uL (0.1-1.0); MONO % 7.4 % (3.0-9.0); NEUT # 7.8 10*3/uL (2.3-7.9); NEUT % 67.9 % (47.0-73.0); PLATELET COUNT AUTOMATED 509 10*3/uL (130-400); RED BLOOD COUNT 3.44 10*6/uL (4.10-5.10); RED CELL DISTRI WIDTH 20.2 % (0-14.5); WHITE BLOOD COUNT 11.5 10*3/uL (4.8-10.8)
[2017-04-20 08:00] VITALS: BP 153/74
[2017-04-20 12:00] VITALS: BP 159/69
== END 2017-04-20 14:38 | disposition other institution (70) | DRG 853 ==
LOC: ED 08:49 → EDHOLD 10:18 → 5E 10:18
PROVIDERS: Emergency Medicine; Internal Medicine; Orthopaedic Surgery
PROC: 30233N1 Transfusion of Nonautologous Red Blood Cells into Peripheral Vein, Percutaneous Approach (ICD-10-PCS; principal; 2017-04-09)
PROC: 0QS606Z Reposition Right Upper Femur with Intramedullary Internal Fixation Device, Open Approach (ICD-10-PCS; 2017-04-16)
DX: A41.9 Sepsis, unspecified organism (principal); S72.144A Nondisplaced intertrochanteric fracture of right femur, initial encounter for closed fracture; E43 Unspecified severe protein-calorie malnutrition; I47.2 Ventricular tachycardia; I11.0 Hypertensive heart disease with heart failure; N17.9 Acute kidney failure, unspecified; A04.72 Enterocolitis due to Clostridium difficile, not specified as recurrent; I50.32 Chronic diastolic (congestive) heart failure; N39.0 Urinary tract infection, site not specified; K56.7 Ileus, unspecified; Z68.1 Body mass index [BMI] 19.9 or less, adult; J44.9 Chronic obstructive pulmonary disease, unspecified; Z66 Do not resuscitate; I16.0 Hypertensive urgency; E03.8 Other specified hypothyroidism; I67.9 Cerebrovascular disease, unspecified; Z51.5 Encounter for palliative care; E55.9 Vitamin D deficiency, unspecified; E78.2 Mixed hyperlipidemia; R62.7 Adult failure to thrive; B96.1 Klebsiella pneumoniae [K. pneumoniae] as the cause of diseases classified elsewhere; D64.9 Anemia, unspecified; E87.6 Hypokalemia; W18.39XA Other fall on same level, initial encounter; Z79.899 Other long term (current) drug therapy; Z86.73 Personal history of transient ischemic attack (TIA), and cerebral infarction without residual deficits; Z87.891 Personal history of nicotine dependence; Z82.49 Family history of ischemic heart disease and other diseases of the circulatory system; Z81.1 Family history of alcohol abuse and dependence; Y93.89 Activity, other specified; Y92.098 Other place in other non-institutional residence as the place of occurrence of the external cause; Y99.8 Other external cause status

== ENCOUNTER → 2017-05-12 | Outpatient (CLI) | payer OTHER ==
[~2017-05-12] MED LIST changes: +POTASSIUM CHLO20 MEQ PO; +VANCOCIN125 M1 PO
== END | disposition home or self-care (01) ==
LOC: ORTHO 13:18
DX: S72.141D Displaced intertrochanteric fracture of right femur, subsequent encounter for closed fracture with routine healing (principal); X58.XXXD Exposure to other specified factors, subsequent encounter

== ENCOUNTER 2017-05-27 22:20 | Emergency (ER) | payer OTHER ==
[~2017-05-27] VITALS: Ht 152.4 cm; Wt 42.6 kg
[2017-05-28 00:13] LABS: BILIRUBIN NEGATIVE (NEGATIVE); BLOOD 3+ (NEGATIVE); CLARITY CLOUDY (CLEAR); COLOR RED (YELLOW); GLUCOSE NEGATIVE (NEGATIVE); KETONE NEGATIVE (NEGATIVE); LEUKO ESTERASE 2+ (NEGATIVE); NITRITE NEGATIVE (NEGATIVE); SPECIFIC GRAVITY 1.015 (1.005-1.030); UROBILINOGEN 0.2 E.U./dl (0.2-1.0)
[2017-05-28 00:29] LABS: RBC TNTC rbc/hpf (0-2); WBC TNTC wbc/hpf (0-5)
[2017-05-28 00:30] LABS: BACTERIA 1+
== END 2017-05-28 01:51 | disposition home or self-care (01) ==
LOC: ED 22:20
PROVIDERS: Emergency Medicine Emergency Medical Services
DX: M25.551 Pain in right hip (principal); E78.5 Hyperlipidemia, unspecified; E03.9 Hypothyroidism, unspecified; F17.200 Nicotine dependence, unspecified, uncomplicated; I11.0 Hypertensive heart disease with heart failure; I50.9 Heart failure, unspecified; Z79.899 Other long term (current) drug therapy; Z98.890 Other specified postprocedural states; Z90.89 Acquired absence of other organs; Z86.73 Personal history of transient ischemic attack (TIA), and cerebral infarction without residual deficits; Z79.82 Long term (current) use of aspirin; W19.XXXA Unspecified fall, initial encounter; Y93.89 Activity, other specified; Y92.128 Other place in nursing home as the place of occurrence of the external cause; Y99.9 Unspecified external cause status

== ENCOUNTER → 2017-06-18 | Outpatient (CLI) | payer OTHER | END | disposition home or self-care (01) | LOC: ORTHO 00:29 | DX: S72.141D Displaced intertrochanteric fracture of right femur, subsequent encounter for closed fracture with routine healing (principal); X58.XXXD Exposure to other specified factors, subsequent encounter; Z47.32 Aftercare following explantation of hip joint prosthesis ==

== ENCOUNTER 2017-07-28 14:11 | Inpatient (IN) | payer OTHER, MEDICAID ==
[~2017-07-28] VITALS: Ht 165.1 cm; Wt 50.8 kg
--- NOTE | ~2017-07-28 | PR ---
[place], [place] PROGRESS NOTE NAME: DOV MOLINA [facility] #: [id number] UNIT #: [id number] ROOM: 407 DOCTOR: JONAS JACKSON MD BIRTHDATE: [birth year] DOS: SUBJECTIVE: The patient feels much better. Diarrhea has slowed down. OBJECTIVE: VITAL SIGNS: Graphic trend shows pressure 149/70, pulse of 78, respirations 20, temperature 98. LUNGS: Diminished breath sounds, clear. HEART: Regular. ABDOMEN: Soft. EXTREMITIES: Without any edema. ASSESSMENT AND PLAN: 1. The patient with continued diarrhea and CT scan showing colitis, on IV Flagyl. P.o. vancomycin was somehow discontinued, we will restart the medicine. Discussed with pharmacy about possibly getting deficit because of his continued elevated white cell count, it could possibly from the discontinuation of vancomycin, which will be restarted. 2. Severe metabolic acidosis with respiratory alkalosis, improving. 3. CT of the abdomen also shows bilateral infiltrates, right middle and right lower lobe, will be covered with IV antibiotics, dedicated CT of the chest will be ordered. 4. Acute kidney injury in a patient with chronic kidney disease, kidney functions are improving. 5. Electrolyte abnormalities including hypokalemia, hypophosphatemia, hypomagnesemia, which will be corrected. 6. Hyponatremia, hypochloremia seems to be improving. D5 and water. Routine labs will be ordered for tomorrow. Urine culture shows Klebsiella pneumoniae and will be covered with Rocephin. JONAS JACKSON MD CM:PNTISH [id number] JONAS JACKSON MD 07/31/17 1313 interface
--- NOTE | ~2017-07-28 | PR ---
[place], [place] PROGRESS NOTE [id number] UNIT #: [id number] ROOM: 407 DOCTOR: JONAS JACKSON MD BIRTHDATE: [birth year] DOS: 08/03/2017 SUBJECTIVE: The patient did go for a bronchoscopy this morning. She looks good post bronchoscopy, tries to respond to questions. She has some periods of pleasant confusion. OBJECTIVE: VITAL SIGNS: Blood pressure is 134/80, pulse of 94, respirations 20, temperature 97. LUNGS: Diminished breath sounds. Few fine wheezes heard. HEART: Regular. ABDOMEN: Soft, scaphoid. EXTREMITIES: Without any edema. ASSESSMENT AND PLAN: 1. Clostridium difficile colitis, on antibiotics. 2. Bilateral pneumonia, on antibiotics, status post bronchoscopy. Bronchoscopy cultures are pending. 3. Adult failure to thrive. Discussed with the patient's family members in detail. The patient seems to be slowly improving. We will hold off on hospice consult for right now. 4. Iron deficiency anemia. We will arrange for iron supplementation. 5. Hypothyroidism. Readjust thyroid medication. JONAS JACKSON MD CM:PNTRANS [id number] JONAS JACKSON MD 08/04/17 0427 interface
--- NOTE | ~2017-07-28 | PR ---
[place], [place] PROGRESS NOTE NAME: DOV MOLINA [facility] #: [id number] UNIT #: [id number] ROOM: 407 DOCTOR: JONAS JACKSON MD BIRTHDATE: [birth year] DOS: SUBJECTIVE: The patient is feeling good, has no complaints. OBJECTIVE: VITAL SIGNS: Graphic trend shows a pressure 133/92, pulse of 77, respirations 20, temperature 97.7. LUNGS: Diminished breath sounds. No wheezes heard. HEART: Regular. ABDOMEN: Soft. EXTREMITIES: Without any edema. LABORATORY DATA: Not available yet. ASSESSMENT AND PLAN: 1. Colitis, possibly from underlying Clostridium difficile. 2. Anemia, iron deficiency, status post transfusion. 3. Bilateral pneumonia, status post bronchoscopy with negative bronch cultures. 4. Severe metabolic acidosis with respiratory alkalosis. 5. Electrolyte abnormalities, which is corrected, the plan is to discharge her back to the [facility] today. JONAS JACKSON MD CM:PNTRANS [id number] JONAS JACKSON MD 08/05/17 1357 interface
--- NOTE | ~2017-07-28 | PR ---
[place], [place] PROGRESS NOTE NAME: DOV MOLINA [facility] #: [id number] UNIT #: [id number] ROOM: 407 DOCTOR: JONAS JACKSON MD BIRTHDATE: [birth year] DOS: SUBJECTIVE: The patient is pleasantly confused and emotional today. OBJECTIVE: VITAL SIGNS: Pressure is 172/85, pulse of 109, respirations 18, temperature 98.5. LUNGS: Diminished breath sounds. No wheezes heard. HEART: Regular. ABDOMEN: Obese, soft and nontender. EXTREMITIES: Without any edema. LABORATORY DATA: White cell count is down to 17,000, hemoglobin is 7.4, hematocrit 24.3, platelets 527. BMP: Glucose 91, BUN 18, creatinine 1.34, sodium 131, potassium 4.5, chloride 106, bicarbonate 15, phosphorus 1.6, magnesium 1.2. CT of the head shows small vessel disease. ASSESSMENT AND PLAN: 1. Acute kidney injury, improving. 2. Metabolic acidosis, getting corrected with intravenous bicarbonate. 3. Electrolyte abnormalities with hypomagnesemia and hypophosphatemia, which are being corrected with supplementation. 4. Diarrhea with colitis, most likely Clostridium difficile even though the titers are negative. The patient has been treated with intravenous Flagyl and p.o. vancomycin. 5. Bilateral pneumonia with continued fever, low grade. Discussed with Dr. Meier. Consultation will be obtained. Patient is on meropenem. 6. Anemia. Iron and ferritin will be ordered today. JONAS JACKSON MD CM:PNTRANS [phone] JONAS JACKSON MD 08/02/172208 interface
--- NOTE | ~2017-07-28 | PR ---
[place], [place] PROGRESS NOTE NAME: DOV MOLINA [facility] #: [id number] UNIT #: [id number] ROOM: 407 DOCTOR: JONAS JACKSON MD BIRTHDATE: [birth year] DOS: 08/01/2017 SUBJECTIVE: The patient is about the same, does not have any new complaints. OBJECTIVE: VITAL SIGNS: Blood pressure is 150/82, pulse of 100, respirations 20, temperature 98.3. LUNGS: Diminished breath sounds, clear. HEART: Regular. Controlled heart rate. ABDOMEN: Soft. EXTREMITIES: Without any edema. LABORATORY DATA: White cell count is down to 18.1, hemoglobin 8.1, hematocrit 25.5, platelets 532. Comprehensive glucose 110, BUN 19, creatinine 1.16, sodium 138, potassium 3.8, chloride 113, bicarbonate 16, calcium 7.6, phosphorus 1.5, magnesium 1.1. Liver enzymes normal. ASSESSMENT AND PLAN: 1. Continued Clostridium difficile diarrhea with sepsis pattern, which is improving with the current treatment plan. 2. Right middle lobe and right lower lobe infiltrate, on IV antibiotics. 3. Metabolic acidosis with respiratory alkalosis, which is improving. 4. Urine culture with Klebsiella pneumoniae, also covered by Rocephin. 5. Adult failure to thrive. The patient to go to [facility], possibly in the next couple of days once the white cell count comes further down. JONAS JACKSON MD CM:PNTRANS [id number] JONAS JACKSON MD 08/12/17 0715 interface
--- NOTE | ~2017-07-28 | PR ---
[place], [place] PROGRESS NOTE NAME: DOV MOLINA [facility] #: [id number] UNIT #: [id number] ROOM: 407 DOCTOR: JONAS JACKSON MD BIRTHDATE: [birth year] DOS: 08/04/2017 SUBJECTIVE: The patient looks much better this morning. She is awake and alert and oriented, and no longer confused. PHYSICAL EXAMINATION: VITAL SIGNS: Graphic trend shows a pressure 146/76, pulse of 75, respirations 16, temperature 97.7. LUNGS: Diminished breath sounds, clear. HEART: Regular. ABDOMEN: Soft. EXTREMITIES: Without any edema. LABORATORY DATA: White cell count 15,000, hemoglobin 7.3, hematocrit 23.2, platelets 480. BMP: Glucose 107, BUN 23, creatinine 1.44, sodium 137, potassium 3.3, chloride 109, bicarbonate 17. ASSESSMENT AND PLAN: 1. Severe metabolic acidosis with respiratory alkalosis back to normal. 2. Electrolyte abnormalities, getting corrected. 3. Bilateral pneumonia, on IV antibiotics. 4. Colitis, on IV antibiotics with continued drop in the white cell count. The plan is possibly to discharge her to [facility] tomorrow. JONAS JACKSON MD CM:PNTRANS 0825 0900 JONAS JACKSON MD 08/04/17 1013 interface
--- NOTE | ~2017-07-28 | PROC NOTE ---
[place], [place] PROCEDURE [id number] UN[facility] #: [id number] ROOM: 407 DOCTOR: AUGUSTA ADRIAN MD,LALA BIRTHDATE: [birth year] DOS: 08/03/2017 PREOPERATIVE DIAGNOSES: Bilateral pulmonary infiltration, etiology unclear, with acute interstitial pneumonia, nonspecific interstitial pneumonia. POSTOPERATIVE DIAGNOSES: ____ endobronchial secretion bilaterally, BAL specimen from the right upper lobe. PROCEDURE: Fiberoptic bronchoscopy, BAL specimen. COMPLICATIONS: None. BLOOD LOSS: None. PROCEDURE DESCRIPTION: Informed consent was obtained from the patient's family members. She was brought to the OR and placed in supine position. Conscious sedation was administered by the Anesthesia Department. After achieving proper sedation, airway introduced into the mouth. Bronchoscope was advanced to the airway into the laryngeal area. Epiglottis and vocal cords seen. Vocal cords noted moving symmetrically with the movement. Bronchoscope was advanced to the vocal cords and tracheal lumen. Tracheal lumen was noted with a small amount of secretion, which was suctioned out. Kaylah noted sharp. Similar secretion was present in the endobronchial tree bilaterally in subsegments which was cleared out. Right upper lobe BAL specimen was obtained as well. Procedure was well tolerated by the patient without complication. Postoperative findings will be discussed with the patient's family members once available. LALA DERAS MD CM:PROCNOTE:PROCEDURE NOTE [id number] LALA ADRIAN MD
--- NOTE | ~2017-07-28 | CON ---
[place], [place] REPORT OF CONSULTATION NAME: DOV MOLINA UNIT #: [id number] ROOM: 407 DOCTOR: GIGI GOLDMAN MD BIRTHDATE: [birth year] DOS: 07/30/2017 HISTORY OF PRESENT ILLNESS: A 66-year-old who has presented with multiple medical problems, among which has been macrocytic indices and she had initially a leukocytosis of 18,000. Dr. Galan and I discussed the case today and the patient's white blood cell has gone to 23,000 and her H and H has dropped to 8 and 26 with leukocytosis of 613. Her urine had some Klebsiella pneumoniae in it and bacteria population was 25. Blood culture was no growth. MRSA was positive. Isolated positivity, most likely nares. Her C. diff was negative. CT scan of the abdomen, which we had was consistent with wall thickening descending colon suggestive of colitis and her lungs, right middle lobe and right lower lobe pulmonary infiltration was noticed left-sided hydronephrosis was also noticed. Urethral stent was seen. Magnesium of 1.2 and phosphorus of 2.2 has been addressed by Dr. Galan today. Her basic metabolic panel: BUN and creatinine elevation of 35 and 1.4, known with GFR of 42. Electrolytes: Sodium 145, chloride 120, hyperchloremic. General status is guarded. At the present time, she is on antibiotic. PLAN AND DISCUSSION: We are going to continue with supportive therapy at this stage. She is going to get follow up on CBC tomorrow to see if her leukocytosis even is going to respond better, we know that her H and H has dropped. We will observe that also as we decided along with Dr. Galan and CBC and electrolytes. Follow up tomorrow and days after future modifications of ordered as necessary. GIGI GOLDMAN MD CM:CONSTR:REPORT OF CONSULTATION 1855 08/17/17 0759 interface
--- NOTE | ~2017-07-28 | DS ---
[place], [place] DISCHARGE SUMMARY NAME: DOV MOLINA [facility] #: [id number] UNIT #: [id number] ROOM: 407 DOCTOR: JONAS JACKSON MD BIRTHDATE: [birth year] DOS: 08/05/2017 DIAGNOSES: 1. Colitis, most likely C. diff. 2. Bilateral pneumonia, status post bronchoscopy with negative cultures. 3. Severe metabolic acidosis with respiratory alkalosis. 4. Hypothyroidism. 5. Benign hypertension with acute tubular necrosis from hypotension. 6. Chronic small vessel disease with metabolic encephalopathy. 7. Electrolyte abnormalities requiring free water supplementation. 8. Hypokalemia, hyponatremia and hypochloremia. 9. Hypophosphatemia, hypomagnesemia. 10. Protein-calorie malnutrition, severe. 11. Mixed hyperlipidemia. 12. Chronic kidney disease. 13. Moderate cigarette smoker. MEDICATIONS ON DISCHARGE: Mag oxide 400 mg p.o. twice a day, Neutra-Phos 1 packet p.o. 3 times a day with meals and also K-Dur 30 b.i.d. Please do a basic a comprehensive CBC, magnesium and phosphorus level on Wednesday and please let Dr. Morataya know the results. Simvastatin 20 daily, iron 325 daily, levothyroxine 150 mcg daily, vitamin D 4000 units daily, Tylenol 1000 mg 3 times a day, Florastor 250 mg p.o. b.i.d., amlodipine 2.5 daily. The patient to be started on vancomycin 250 mg p.o. q.i.d. for 2 weeks 50 mg p.o. 3 times a day for 1 week then twice a day for 1 week and then discontinue; Ceftin 250 mg twice a day for 7 days; Medrol Dosepak. Please do not do a TSH, T3, T4 at this present time. Please wait for 6 weeks to have the thyroid function done. HOSPITAL COURSE: This patient is 67 years old, very well known to us. The patient comes in with confusion. The patient also was found to be severely acidotic with bicarbonate of 3. After admission, the patient was found to have ongoing multiple diarrhea and thought to have C. diff because of recent history of Clostridium difficile. The patient was ordered urine culture, blood cultures, C. diff titers. Metabolic acidosis with respiratory alkalosis was treated. Acute kidney injury was treated. Hypokalemia, supplementation was given. Hypomagnesemia and hypophosphatemia was noted, again treated with supplementation. Consultation with Dr. Joe was obtained. CT of the abdomen and pelvis shows colitis with right lower lobe infiltrates. The patient was started on IV antibiotics for the pneumonia and consultation with Dr. Meier was obtained. We took her for a bronchoscopy. Bronch cultures so far are negative. With the multiple IV antibiotics, fluids, bicarbonate infusions and blood transfusion, the patient has improved and is fairly stable. Acidosis is corrected. Routine labs do show some improvement in the electrolytes. Today's labs are unavailable. Slight elevation of white cell count is most likely steroid effect. The patient has opted not to have a colonoscopy. This morning, the patient is fairly stable, awake and alert and oriented, does not appear to be confused and her appetite is fair. Her diarrhea has slowed down. She does not have any fever. The plan therefore is to discharge her back to the group home. [place], [place] DISCHARGE SUMMARY [facility]: [id number] UNIT #: [id number] ROOM: 407 DOCTOR: JONAS JACKSON MD BIRTHDATE: [birth year] JONAS JACKSON MD CM:MIKE [phone] JONAS JACKSON MD 08/27/17 0907 interface
--- NOTE | ~2017-07-28 | PR ---
[place], [place] PROGRESS NOTE NAME: DOV MOLINA UNIT #: [id number] ROOM: 407 DOCTOR: JONAS JACKSON MD BIRTHDATE: [birth year] DOS: 07/30/2017 SUBJECTIVE: Patient is feeling a little bit better this morning. She is not hyperventilating as yesterday. OBJECTIVE: VITAL SIGNS: Blood pressure is 156/57, pulse of 88, respirations 18, temperature 98.3. LUNGS: Diminished breath sounds. HEART: Regular. ABDOMEN: Soft, scaphoid. EXTREMITIES: Without any edema, slightly more swollen on the left leg, which is chronic. LABORATORY DATA: White cell count is down to 23,000. Urine culture, 25,000 colonies of Klebsiella pneumoniae. Blood culture shows no bacterial growth. Hemoglobin 8.4. BUN 43, creatinine 1.61, sodium 150, potassium 2.6, chloride 126, bicarbonate 8. ASSESSMENT AND PLAN: 1. Metabolic acidosis from respiratory alkalosis from continued diarrhea, bicarbonate to be continued. 2. Hypernatremia, hyperchloremia. Free water supplementation will be ordered. 3. Elevated white cell count with sepsis pattern, most likely from underlying C. diff even though C. diff titer was negative. We are still treating the patient has C. diff because of her history. 4. Heme positive stools, possibly from the colitis. Discussed with Dr. Joe especially with the white cells being so high, it was suggested maybe we can hold off on the endoscopy, colonoscopy until Wednesday. A CT of the abdomen and pelvis will be done today without contrast. 5. Chronic kidney disease with acute kidney injury, possibly from acute tubular necrosis, on continued IV fluids. Discussed with the patient's sister in detail. [place], [place] PROGRESS NOTE NAME: DOV MOLINA UNIT #: [id number] ROOM: 407 DOCTOR: JONAS JACKSON MD BIRTHDATE: [birth year] JONAS JACKSON MD CM:PNTRANS 0847 0024 JONAS JACKSON MD 07/31/17 0022 interface
--- NOTE | ~2017-07-28 | PR ---
[place], [place] PROGRESS NOTE NAME: DOV MOLINA [facility] #: [id number] UNIT #: [id number] ROOM: 407 DOCTOR: AUGUSTA ADRIAN MD,LALA BIRTHDATE: [birth year] DOS: 08/03/2017 PULMONARY PROGRESS NOTE SUBJECTIVE: She was noted comfortable at this time, resting on the bed. She was not noted communicative with past stroke and other neurologic issues. Consent has been obtained from the patient's family members about the bronchoscopy that is planned for today. She has been noted bilateral pulmonary infiltration with finding of NSIP as well as some area of consolidation in the lungs. The etiology of the patient was not noted completely clear. She has been also treated for C. diff colitis, currently receiving intravenous meropenem for the medical management of current suspected bacterial pneumonia. She is noted n.p.o. past midnight for bronchoscopy. OBJECTIVE: VITAL SIGNS: Which had been recorded showed the temperature noted 100.3 degrees Fahrenheit, respiratory recorded 18-20, heart rate was noted tachycardia between 112-113, and blood pressure 157/85 to 155/103. Intake is 780, output was not documented. Pulse oxygen saturation on room air was 99% saturation. HEENT: Head was atraumatic, eyes nonicterus. NECK: Supple. CARDIOVASCULAR: S1, S2 audible. LUNGS: The patient was noted with moderate decreased breath sounds in the lungs bilaterally. There were no wheezing or crackles heard. ABDOMEN: Soft, nontender. Bowel sounds present. EXTREMITIES: Without any acute edema. MUSCULOSKELETAL: Without any acute deformity. VISIBLE SKIN: No lesions or rashes. CENTRAL NERVOUS SYSTEM: Change in mental status. IMPRESSION: 1. The patient has been noted with bilateral pulmonary infiltration with acute interstitial pneumonitis with exact etiology unable to be determined at this time. Possibility of acute bacterial infection and other etiologies have been considered, the workup is in process. The C-reactive protein for the patient was noted yesterday elevated at 4.6 and the ESR also noted significantly elevated at 85. 2. Ongoing Clostridium difficile colitis, which has been treated with antibiotics. IMAGING DATA: The chest x-ray that was done yesterday still noted with bilateral patchy infiltration. PLAN OF MANAGEMENT: The patient will be undergoing bronchoscopy for further assessment. BAL specimen will be also obtained from right upper lobe bronchus subsegment. No changes in the medical management at this time unless interact the patient by the cultures with the bronchoscopy and others. Possible course of corticosteroids might be necessary if the culture of the patient's bronchial washing comes negative and not noted consistent with a bacterial infection. [place], [place] PROGRESS NOTE NAME: DOV MOLINA UNIT #: [id number] ROOM: [facility] DOCTOR: LALA CARDENAS MD BIRTHDATE: [birth year] LALA DERAS MD CM:PNTRANS [id number] LALA ADRIAN MD 08/03/17 1141 interface
--- NOTE | ~2017-07-28 | CON ---
[place], [place] REPORT OF CONSULTATION NAME: DOV MOLINA UNIT #: [id number] ROOM: 407 DOCTOR: AUGUSTA ADRIAN MD,LALA BIRTHDATE: [birth year] DOS: 08/02/2017 PULMONARY CONSULTATION EVALUATION MANAGEMENT REASON FOR CONSULTATION: Assessment of the pneumonia, which has been noted in the lower lobe, nonresolving, by Dr. Cathi Galan. HISTORY OF PRESENT ILLNESS: The patient is unable to give me any history. All the history continued from document in the medical record documentation by Dr. Cathi Galan and other physician's note for this patient as well as a nurse's notes. The patient has been admitted to the hospital on 07/28/2017 as the patient resides in the [facility]. The patient has been brought to the hospital as the patient was noted with increased diarrhea. The diarrhea was described to be getting worse for this patient. She was also noted change in mental status with no symptoms of chest pain described. I am not sure the patient does have symptoms of coughing, wheezing, shortness of breath or other symptoms. The patient has been noted with C. diff colitis, which has been treated again for this patient. REVIEW OF SYSTEMS: The patient's review of systems could not be completed at this time because of inability to have clear answer to the questions. PAST MEDICAL HISTORY: 1. The patient noted with C. diff colitis, which was treated in 03/2017 as well with the toxic megacolon reported. 2. History of intertrochanteric fracture of the right hip for this patient as well. 3. Failure to thrive. 4. Benign essential hypertension. 5. Severe protein-calorie malnutrition reported. 6. Hypothyroidism. 7. Mixed hyperlipidemia. 8. Chronic kidney disease. 9. Nicotine abuse. SOCIAL HISTORY: The patient was noted with history of tobacco use about a pack of cigarettes per day. There was no history of alcohol use, illicit drug use. Currently resides in the nursing facility in the [facility]. FAMILY HISTORY: Unknown. PAST SURGICAL HISTORY: Right hip surgery. CURRENT MEDICATIONS: Administered for the patient was noted as use of Neutra-Phos, magnesium oxide, sodium bicarbonate, Protonix, levothyroxine, amoxicillin, lactobacillus, Carafate, meropenem, oral Flagyl and vancomycin, and other p.r.n. medications. DRUG ALLERGY HISTORY: The patient was noted as no known drug allergies. [place], [place] REPORT OF CONSULTATION NAME: DOV MOLINA UNIT #: [id number] ROOM: [facility] DOCTOR: AUGUSTA ADRIAN MD,LALA BIRTHDATE: [birth year] PHYSICAL EXAMINATION: GENERAL: A 66-year-old female who has been currently noted to be awake and alert without any acute distress, cooperative with the examination, height of 5 feet 5 inch, weight 102.9 pounds. VITAL SIGNS: The patient shows a normal temperature, respiratory rate 18-22, heart rate of 109-100. Blood pressure 151/92-172/85. Pulse oxygen saturation of the patient noted on room air 98% saturation. HEENT: Shows head was atraumatic. Eyes nonicterus. NECK: Supple. CARDIOVASCULAR: S1, S2 is audible. LUNGS: The patient noted with [id number] decreased breath sounds noted with occasional crackles in the lungs noted. There was no wheezing. ABDOMEN: Soft, flat, nontender, bowel sounds present. EXTREMITIES: Without any acute edema, clubbing, cyanosis. MUSCULOSKELETAL: The patient was noted without any acute deformities. CENTRAL NERVOUS SYSTEM: At this time, does not appear to have focal loss for this patient. The patient is moving the upper and lower extremity upon commands. Further examination could not be performed. SKIN: Visible skin, no lesions or rashes. MUSCULOSKELETAL: No gross deformities. LABORATORY DATA: CBC on 07/27/2017, WBC count 18.3, hemoglobin 10, hematocrit 33.1, platelet count 624,000. CBC of the patient that was done on 07/28/2017, WBC count 16.3, hemoglobin 10.6, hematocrit 35.4, platelet count 660,000. PT and PTT was noted as INR of 1.2, PTT 38. On the 07/28/2017, BMP, BUN 66, creatinine 1.88. Glucose 154. CO2 was noted only 8, chloride of 119. The CBC that was done on 08/02/2017, WBC count 17.5, persistently elevated, hemoglobin 7.5, hematocrit 24.3, platelet count 527,000. BMP of 08/02/2017, BUN 18, creatinine 1.34. Sodium 131, potassium 5.6, magnesium 1.2. IMAGING STUDIES: CT scan of the head that was done yesterday was noted without any acute intracranial abnormalities. The review of the radiology data: The chest x-ray that was done on 07/28/2017 was noted without any acute pulmonary infiltration. The patient has CT scan of the chest that was done on 07/31/2017 reviewed personally as well shows evidence of a patchy ground glass opacity, which were noted in the lungs bilaterally. Small pleural fluid was seen. IMPRESSION: The patient will be currently admitted to the hospital noted with bilateral ground glass opacity infiltration, which has been noted in the lungs bilaterally. No description of the symptoms per the patient, not adequate at this time from the history by the patient. The differential of the patient could be considered as possibility of acute infection etiology versus noninfectious etiology including for pulmonary edema. Nonspecific acute interstitial pneumonitis differential of connective tissue disorder, allergic reaction to the lung from any medication as well as possibility of acute hypersensitivity pneumonitis or cryptogenic organizing pneumonia. The patient with current history of C. diff colitis with persistent leukocytosis. Resolution of severe metabolic acidosis. The patient with acute on chronic kidney disease with superimposed acute component may be related to diarrhea and intravascular volume depletion seemed to be resolved. The patient noted to [place], [place] REPORT OF CONSULTATION NAME: DOV MOLINA UNIT #: [id number] ROOM: 407 DOCTOR: AUGUSTA ADRIAN [facility] BIRTHDATE: [birth year] currently baseline kidney function, chronic kidney disease stage 3. PLAN OF MANAGEMENT: The patient will definitely benefit from bronchoscopy to exclude any pulmonary infection with a history of C. diff colitis to minimize the use of the other antibiotics for the patient. Currently, the patient is getting meropenem that will be continued. Bronchodilator will be continued. The consent needs to be obtained from the patient's family members since the patient unable to give me any history or consent understanding the ongoing assess on the patient and this management. Other supportive therapy, plan of management continue as well. The workup for noninfectious etiology has been ordered with usual serology, connective tissue disorder and others. Other plan of management to be changed for the patient based on progression of the illness. Thanks for allowing me to participate in the care of this patient. LALA DERAS MD CM:CONSTR:REPORT OF CONSULTATION 1100 08/11/17 0739 interface
--- NOTE | ~2017-07-28 | PR ---
[place], [place] PROGRESS NOTE NAME: DOV MOLINA LOCATED WITHIN [facility] #: [id number] UNIT #: [id number] ROOM: 407 DOCTOR: AUGUSTA ADRIAN MD,LALA BIRTHDATE: [birth year] DOS: 08/04/2017 PULMONARY PROGRESS NOTE SUBJECTIVE: The patient noted comfortable at this time without any acute distress. She has not been noted any new acute complaints at this time. Bronchoscopy was completed yesterday successfully without any difficulty or complication. She was continued on the medical management, acute pneumonia was suspected. The BAL specimen was obtained from the right upper lobe as well. She has been currently treated for C. diff colitis. She has not reported any symptoms of abdominal pain, edema or pain of the lower extremities. Remaining systems were reviewed, they were noted all negative. OBJECTIVE: VITAL SIGNS: Showed normal temperature, respiratory rate 18, heart rate 78, blood pressure 156/83-160/80. Pulse oxygen saturation recorded on room air as 98% saturation. HEENT: Head was atraumatic. Eyes nonicterus. NECK: Supple. CARDIOVASCULAR: S1, S2 is audible. LUNGS: Noted without any crackles. Breaths are noted mild to moderately decreased bilaterally. There was no wheezing. ABDOMEN: Soft, nontender. Bowel sounds present. EXTREMITIES: Noted without any acute edema. MUSCULOSKELETAL: Without any acute deformities. CENTRAL NERVOUS SYSTEM: No gross focal neurologic deficit. LABORATORY DATA: BMP this morning: BUN 23, creatinine 1.44, potassium 3.3, CO2 of 17. CBC on 08/04/2017: WBC count 15.8, hemoglobin 7.3, hematocrit 23.2, platelet count 480,000. Gram stain of the bronchial washing shows a few white blood cells, no organism seen. The bronchial washing differential noted 77% macrophages with 12% lymphocytes, 2% eosinophils, and 9% neutrophils. IMPRESSION: 1. The patient with possibility of inflammatory condition and current pulmonary infiltration, does not seem to be ____, with evidence of acute pneumonia. The cultures preliminary are showing light growth of yeast. 2. Hypokalemia. 3. Clostridium difficile colitis. PLAN OF THERAPY: Continuation of diuretics and bronchodilators. Discontinue imipenem as the antibiotic, which is not necessary. Continue treatment for C. diff colitis. The patient will be started empirically on corticosteroid, Solu-Medrol 40 mg b.i.d. dosing. Monitor respiratory status closely. Continuation of the supportive therapy plan of management and care plan. Obtain another chest x-ray in the morning to reassess the progression of the current pulmonary infiltration. Additional treatment changes continued to be modified for this patient based on the current other medical management. [place], [place] PROGRESS NOTE NAME: DOV MOLINA UNIT #: [id number] ROOM: [facility] DOCTOR: LALA CARDENAS MD BIRTHDATE: [birth year] LALA DERAS MD CM:PNTISH [id number] LALA ADRIAN MD 08/04/17 1426 interface
--- NOTE | ~2017-07-28 | WRIGHTHP ---
[place], [place] PATIENT HISTORY AND PHYSICAL EXAM NAME: DOV MOLINA [facility] #: [id number] UNIT #: [id number] ROOM: 407 DOCTOR: JONAS JACKSON MD BIRTHDATE: [birth year] DOS: 07/28/2017 HISTORY OF PRESENT ILLNESS: This patient is 66-year-old. The patient is well known to us from a previous admission a few months ago. She has been a resident of [facility] for a few months now. She states that she was doing well. About a week ago, she started having severe diarrhea again. It continued to get worse and so finally she was brought to the emergency room. She had some change in mental status as per the nursing staff and that is the reason, she was sent out. She also has had some low-grade fever. She denies having any chest pains or palpitations, does not have any abdominal pain, nausea, any emesis, diarrhea is persistent and continuous. PAST MEDICAL HISTORY: Significant for: 1. Last hospitalization in March with severe C. diff and a toxic megacolon. 2. Intertrochanteric fracture of the right hip with adult failure to thrive. 3. Benign hypertension. 4. Protein-calorie malnutrition, severe. 5. Hypothyroidism. 6. Mixed hyperlipidemia. 7. Moderate cigarette smoker and chronic kidney disease. MEDICATIONS: She is currently on are amlodipine 10 daily, aspirin 81 daily, vitamin D 4000 units daily, ibuprofen 600 t.i.d. p.r.n., levothyroxine 137 mcg at bedtime, metoprolol 50 daily, potassium 30 b.i.d., simvastatin 20 daily. SOCIAL HISTORY: Again, smoker of about a pack of cigarettes. Denies using any alcohol. Currently, a resident of [facility]. PHYSICAL EXAMINATION: GENERAL: She is awake and alert and oriented, hyperventilating. VITAL SIGNS: Blood pressure is 148/80, pulse of 81, respirations 20, temperature 97.8. LUNGS: Diminished breath sounds. No wheezes, rales or rhonchi heard. HEART: Regular. ABDOMEN: Soft with some diffuse tenderness. EXTREMITIES: Without any edema. LABORATORY DATA: At the time of admission, comprehensive glucose 154, BUN 63, creatinine 1.88, sodium 139, potassium 4.1, chloride 119, bicarbonate 8. WBC count is 17.9, hemoglobin 11.0, hematocrit 35.3. Chest x-ray unremarkable. Arterial blood gas shows a pH of 7.2, pCO2 87, pO2 130, bicarbonate 3.5, oxygen saturation 98.5. ASSESSMENT AND PLAN: 1. The patient with elevated white cell count and sepsis pattern most likely from underlying C. diff diarrhea. The patient has been placed on p.o. vancomycin and IV Flagyl, which will be converted to p.o. Flagyl soon. 2. Possible underlying other infections like a UTI. Urine culture and blood cultures have been sent. The patient is placed on IV Rocephin. [place], [place] PATIENT HISTORY AND PHYSICAL EXAM NAME: DOV MOLINA UNIT #: [id number] ROOM: [facility] DOCTOR: JONAS JACKSON MD BIRTHDATE: [birth year] 3. Severe metabolic acidosis with respiratory alkalosis. The patient is placed on bicarbonate infusion. 4. Hypokalemia. Supplementation is ordered. 5. Acute kidney injury from acute tubular necrosis from dehydration and hypotension. We will avoid too many antihypertensives. JONAS JACKSON MD CM:HISPHYS:PATIENT HISTORY AND PHYSICAL EXAMINATION 0911 JONAS JACKSON MD 07/29/17 3345 interface
--- NOTE | ~2017-07-28 | PR ---
[place], [place] PROGRESS NOTE [id number] #: [id number] ROOM: 407 DOCTOR: AUGUSTA ADRIAN MD,LALA BIRTHDATE: [birth year] DOS: 08/05/2017 SUBJECTIVE: The patient was noted comfortable, still complaining of diarrhea. Denies shortness of breath, coughing, sputum expectoration, or chest pain. OBJECTIVE: VITAL SIGNS: For the patient which were recorded showed the temperature noted as normal. The respiratory rate 20, heart rate 77, and blood pressure 133/92. Pulse oxygen saturation of the patient noted on room air 96% saturation. HEENT: Examination shows head was atraumatic. Eyes nonicterus. NECK: Supple. CARDIOVASCULAR: S1, S2 audible. LUNGS: Noted without any wheeze or crackles. ABDOMEN: Soft, nontender. Bowel sounds present. EXTREMITIES: Without any acute edema. LABORATORY DATA: The patient's CBC today, WBC count 13,000, hemoglobin 9.9, platelet count 513,000 and it was noted negative. ____ noted mildly elevated at 10.9. Workup for the vascularity of the patient preliminary noted negative. The IgG level noted as moderately decreased ____ total quantity as well as a subclass of 2. IMPRESSION: Bilateral pulmonary infiltration. The patient's exact etiology was poorly understood at this time, most likely inflammatory condition, noninfectious, has been considered; currently started on treatment with the corticosteroids. PLAN OF MANAGEMENT: Obtain a chest x-ray of the patient today to reassess, actually was planned for the patient for tomorrow, but seemed like the patient has been planned for discharge home by Dr. Cathi Galan. Chest x-ray will be assessed to determine the need of corticosteroids continuation. Other supportive therapy, plan of management, care plan. LALA DERAS MD CM:PNTRANS 1033 LALA ADRIAN MD 08/05/17 1032 interface
[2017-07-28 14:22] VITALS: BP 133/70
[2017-07-28 14:51] LABS: HEMATOCRIT 35.3 % (37.0-47.0); MEAN CELL VOLUME 99.7 fl (81.0-99.0); MEAN CORPUSCULAR HGB 31.1 pg (27.0-31.0); MEAN CORPUSCULAR HGB CONC 31.2 g/dl (33.0-37.0); MEAN PLATELET VOLUME 8.7 fl (9.6-12.3); NUCLEATED RED BLOOD CELL 0.1 % (0.0-0.0); PLATELET COUNT AUTOMATED 653 10*3/uL (130-400); RED BLOOD COUNT 3.54 10*6/uL (4.10-5.10); RED CELL DISTRI WIDTH 15.8 % (0-14.5); WHITE BLOOD COUNT 17.9 10*3/uL (4.8-10.8)
[2017-07-28 15:00] LABS: ACT PARTIAL THROMBO TIME 38.2 SECONDS (20.8-31.5); INTERNATIONAL NORM RATIO 1.2 (2.0-3.5)
[2017-07-28 15:07] LABS: ALBUMIN 2.4 gm/dl (3.1-4.5); ALKALINE PHOSPHATASE 111 U/L (45-117); BUN 63 mg/dl (7-24); CHLORIDE 119 mmol/L (98-107); CREATININE 1.88 mg/dL (0.55-1.02); LIPASE 105 U/L (73-393); POTASSIUM 4.1 mmol/L (3.5-5.1); SGOT/AST 6 IU/L (3-35); SGPT/ALT 18 U/L (12-78); SODIUM 139 mmol/L (136-145)
[2017-07-28 15:08] LABS: TROPONIN I < 0.015 ng/ml (<0.045)
[2017-07-28 15:10] LABS: PLATELET SUFFICIENCY HIGH (NORMAL); TOTAL CELLS COUNTED 100 #CELLS
[2017-07-28 15:11] LABS: BURR CELLS FEW; OVALOCYTES FEW
[2017-07-28 15:38] LABS: BILIRUBIN NEGATIVE (NEGATIVE); BLOOD 2+ (NEGATIVE); CLARITY SL CLOUDY (CLEAR); COLOR YELLOW (YELLOW); GLUCOSE NEGATIVE (NEGATIVE); KETONE NEGATIVE (NEGATIVE); LEUKO ESTERASE 3+ (NEGATIVE); NITRITE NEGATIVE (NEGATIVE); UROBILINOGEN 0.2 E.U./dl (0.2-1.0)
[2017-07-28 15:40] VITALS: BP 139/71
[2017-07-28 16:04] LABS: BACTERIA 1+; WBC 31-40 wbc/hpf (0-5); YEAST 2+
[2017-07-28 16:05] LABS: ABG HCO3 3.5 mmol/l (22-26); ABG O2 SATURATION 98.5 % (95-97); ARTERIAL BLOOD GAS PH 7.232 (7.35-7.45)
[2017-07-28 16:06] VITALS: BP 139/71; BP 145/74
[2017-07-28 16:07] LABS: ABG BASE EXCESS -23.4 mmol/L (-2.0-2.0)
[2017-07-28 16:08] LABS: ARTERIAL BLOOD GAS PCO2 8.7 mmHg (35-45)
[2017-07-28] MEDS ORDERED: AMLODIPINE BESY10 MG PO (16:37)
[2017-07-28] MEDS ORDERED: DIGESTIVE PROB250 MG PO (16:38)
[2017-07-28] MEDS ORDERED: IBU600 M1 PO (16:39)
[2017-07-28 17:20] VITALS: BP 155/69
[2017-07-28] MEDS ORDERED: [UNRECOGNIZED DRUG - OTHER] PO (17:45)
[2017-07-28] MEDS ORDERED: POTASSIUM CHLO10 ME5 PO (17:47)
[2017-07-28] MEDS ORDERED: POTASSIUM CHLO20 ME3 PO (17:48)
[2017-07-28] MEDS ORDERED: VITAMIN D31000 UNI1 PO (17:49)
[2017-07-28] MEDS ORDERED: TYLENOL EXTRA500 M2 PO (17:50)
[2017-07-28] MEDS ORDERED: IBUPROFEN600 MG PO (17:51)
[2017-07-28] MEDS ORDERED: TOPROL XL50 M1 PO (17:52)
[2017-07-28] MEDS ORDERED: FLORASTOR250 MG PO (17:54)
[2017-07-28 18:20] VITALS: BP 155/69
[2017-07-28 20:00] VITALS: BP 134/77
[2017-07-29] VITALS: BP 148/80
[2017-07-29 06:55] LABS: HEMATOCRIT 31.5 % (37.0-47.0); HEMOGLOBIN 9.7 g/dl (12.0-16.0); MEAN CELL VOLUME 100.3 fl (81.0-99.0); MEAN CORPUSCULAR HGB 30.9 pg (27.0-31.0); MEAN CORPUSCULAR HGB CONC 30.8 g/dl (33.0-37.0); MEAN PLATELET VOLUME 8.8 fl (9.6-12.3); NUCLEATED RED BLOOD CELL 0.1 10*3/uL (0.0-0.0); NUCLEATED RED BLOOD CELL 0.2 % (0.0-0.0); PLATELET COUNT AUTOMATED 641 10*3/uL (130-400); RED BLOOD COUNT 3.14 10*6/uL (4.10-5.10); RED CELL DISTRI WIDTH 15.7 % (0-14.5)
[2017-07-29 07:25] LABS: CREATININE 1.63 mg/dL (0.55-1.02)
[2017-07-29 07:36] LABS: BURR CELLS MODERATE; PLATELET SUFFICIENCY HIGH (NORMAL); TOTAL CELLS COUNTED 100 #CELLS; TOXIC GRANULATION MODERATE
[2017-07-29 07:37] LABS: SCHISTOCYTES FEW; TARGET CELLS FEW
[2017-07-29 08:00] VITALS: BP 129/78
[2017-07-29 12:00] VITALS: BP 134/58
[2017-07-29 14:10] LABS: CREATININE 1.63 mg/dL (0.55-1.02)
[2017-07-29 16:00] VITALS: BP 152/76
[2017-07-29 20:00] VITALS: BP 159/85
[2017-07-30 00:17] VITALS: BP 163/78
[2017-07-30 07:44] LABS: HEMATOCRIT 26.8 % (37.0-47.0); HEMOGLOBIN 8.4 g/dl (12.0-16.0); MEAN CELL VOLUME 97.5 fl (81.0-99.0); MEAN CORPUSCULAR HGB 30.5 pg (27.0-31.0); MEAN CORPUSCULAR HGB CONC 31.3 g/dl (33.0-37.0); MEAN PLATELET VOLUME 8.9 fl (9.6-12.3); NUCLEATED RED BLOOD CELL 0.1 % (0.0-0.0); PLATELET COUNT AUTOMATED 613 10*3/uL (130-400); RED BLOOD COUNT 2.75 10*6/uL (4.10-5.10); RED CELL DISTRI WIDTH 15.4 % (0-14.5)
[2017-07-30 08:00] VITALS: BP 156/57
[2017-07-30 08:13] LABS: TOTAL CELLS COUNTED 100 #CELLS
[2017-07-30 08:14] LABS: BURR CELLS MODERATE; PLATELET SUFFICIENCY HIGH (NORMAL); POLYCHROMASIA SLIGHT
[2017-07-30 08:35] LABS: CREATININE 1.61 mg/dL (0.55-1.02); POTASSIUM 2.6 mmol/L (3.5-5.1)
[2017-07-30 12:00] VITALS: BP 148/79
[2017-07-30 16:00] VITALS: BP 125/74
[2017-07-30 16:27] LABS: CREATININE 1.49 mg/dL (0.55-1.02); PHOSPHOROUS 2.2 mg/dL (2.5-4.9); POTASSIUM 3.5 mmol/L (3.5-5.1)
[2017-07-30 20:00] VITALS: BP 151/78
[2017-07-31] VITALS: BP 149/70
[2017-07-31 06:15] LABS: HEMATOCRIT 24.6 % (37.0-47.0); HEMOGLOBIN 7.8 g/dl (12.0-16.0); MEAN CELL VOLUME 96.9 fl (81.0-99.0); MEAN CORPUSCULAR HGB 30.7 pg (27.0-31.0); MEAN CORPUSCULAR HGB CONC 31.7 g/dl (33.0-37.0); MEAN PLATELET VOLUME 9.2 fl (9.6-12.3); NUCLEATED RED BLOOD CELL 0.1 % (0.0-0.0); PLATELET COUNT AUTOMATED 615 10*3/uL (130-400); RED BLOOD COUNT 2.54 10*6/uL (4.10-5.10); RED CELL DISTRI WIDTH 15.7 % (0-14.5)
[2017-07-31 06:27] LABS: CREATININE 1.31 mg/dL (0.55-1.02); PHOSPHOROUS 1.5 mg/dL (2.5-4.9); POTASSIUM 3.3 mmol/L (3.5-5.1)
[2017-07-31 06:55] LABS: TOTAL CELLS COUNTED 100 #CELLS
[2017-07-31 06:56] LABS: ACANTHOCYTES FEW; BURR CELLS MODERATE; PLATELET SUFFICIENCY HIGH (NORMAL); POLYCHROMASIA SLIGHT; SCHISTOCYTES FEW; TOXIC GRANULATION SLIGHT
[2017-07-31 08:00] VITALS: BP 152/80
[2017-07-31 12:00] VITALS: BP 132/75
[2017-07-31 16:00] VITALS: BP 140/71
[2017-07-31 20:00] VITALS: BP 142/68
[2017-08-01 00:59] VITALS: BP 150/82
[2017-08-01 05:54] LABS: HEMATOCRIT 25.5 % (37.0-47.0); HEMOGLOBIN 8.1 g/dl (12.0-16.0); MEAN CORPUSCULAR HGB 30.8 pg (27.0-31.0); MEAN CORPUSCULAR HGB CONC 31.8 g/dl (33.0-37.0); MEAN PLATELET VOLUME 8.9 fl (9.6-12.3); PLATELET COUNT AUTOMATED 532 10*3/uL (130-400); RED BLOOD COUNT 2.63 10*6/uL (4.10-5.10); RED CELL DISTRI WIDTH 15.1 % (0-14.5); WHITE BLOOD COUNT 18.1 10*3/uL (4.8-10.8)
[2017-08-01 06:24] LABS: ACANTHOCYTES FEW; BASOPHILS 1 % (0-1); BURR CELLS MODERATE; PLATELET SUFFICIENCY HIGH (NORMAL); TOTAL CELLS COUNTED 100 #CELLS; TOXIC GRANULATION SLIGHT
[2017-08-01 06:29] LABS: ALBUMIN 1.8 gm/dl (3.1-4.5); POTASSIUM 3.8 mmol/L (3.5-5.1); TOTAL PROTEIN 4.6 gm/dL (6.4-8.2)
[2017-08-01 06:33] LABS: CREATININE 1.16 mg/dL (0.55-1.02); PHOSPHOROUS 1.5 mg/dL (2.5-4.9)
[2017-08-01 08:00] VITALS: BP 156/74
[2017-08-01 12:00] VITALS: BP 157/70
[2017-08-01 16:00] VITALS: BP 155/84
[2017-08-01 20:00] VITALS: BP 166/88
[2017-08-02] VITALS: BP 151/92
[2017-08-02 07:15] LABS: HEMATOCRIT 24.3 % (37.0-47.0); HEMOGLOBIN 7.7 g/dl (12.0-16.0); MEAN CELL VOLUME 97.6 fl (81.0-99.0); MEAN CORPUSCULAR HGB 30.9 pg (27.0-31.0); MEAN CORPUSCULAR HGB CONC 31.7 g/dl (33.0-37.0); PLATELET COUNT AUTOMATED 527 10*3/uL (130-400); RED BLOOD COUNT 2.49 10*6/uL (4.10-5.10); WHITE BLOOD COUNT 17.5 10*3/uL (4.8-10.8)
[2017-08-02 07:37] LABS: BURR CELLS MODERATE; PLATELET SUFFICIENCY HIGH (NORMAL); POLYCHROMASIA SLIGHT; TOTAL CELLS COUNTED 100 #CELLS; TOXIC GRANULATION SLIGHT
[2017-08-02 07:40] LABS: CREATININE 1.34 mg/dL (0.55-1.02); PHOSPHOROUS 1.6 mg/dL (2.5-4.9); POTASSIUM 4.5 mmol/L (3.5-5.1)
[2017-08-02 08:00] VITALS: BP 172/85
[2017-08-02 12:00] VITALS: BP 166/76
[2017-08-02 12:06] VITALS: BP 157/85
[2017-08-02 16:00] VITALS: BP 161/67
[2017-08-02 20:00] VITALS: BP 155/103
[2017-08-03] VITALS (14 sets, daily range): BP systolic 129–168; BP diastolic 70–87
[2017-08-03 09:11] LABS: IMMUNOGLOBULIN M, QNT 44 mg/dL (26-217); RHEUMATOID ARTHRITIS FACTOR <10.0 IU/mL (0.0-13.9)
[2017-08-03 09:58] LABS: BF LYMPHOCYTES 12 %; BF MACROPHAGES 77 %; BF NEUTROPHILS 9 %
[2017-08-03 10:41] LABS: HEMATOCRIT 21.7 % (37.0-47.0); HEMOGLOBIN 6.8 g/dl (12.0-16.0); MEAN CELL VOLUME 99.5 fl (81.0-99.0); MEAN CORPUSCULAR HGB 31.2 pg (27.0-31.0); MEAN CORPUSCULAR HGB CONC 31.3 g/dl (33.0-37.0); MEAN PLATELET VOLUME 8.9 fl (9.6-12.3); PLATELET COUNT AUTOMATED 485 10*3/uL (130-400); RED BLOOD COUNT 2.18 10*6/uL (4.10-5.10); RED CELL DISTRI WIDTH 15.1 % (0-14.5); WHITE BLOOD COUNT 18.3 10*3/uL (4.8-10.8)
[2017-08-03 10:52] LABS: CREATININE 1.51 mg/dL (0.55-1.02)
[2017-08-03 11:06] LABS: BURR CELLS FEW; POLYCHROMASIA SLIGHT; POTASSIUM 3.4 mmol/L (3.5-5.1); TOTAL CELLS COUNTED 100 #CELLS; TOXIC GRANULATION MODERATE
[2017-08-03 11:07] LABS: PLATELET SUFFICIENCY HIGH (NORMAL)
[2017-08-03 15:07] LABS: ALDOLASE 002030 10.9 U/L (3.3-10.3); ANGIOTENSIN-CONVERTING ENZYME 32 U/L (14-82); ATYPICAL PANCA <1:20 titer (Neg:<1:20); CYTOPLASMIC (C-ANCA) <1:20 titer (Neg:<1:20)
[2017-08-03 20:10] LABS: IGG SUBCLASS 1 300 mg/dL (248-810); IGG SUBCLASS 2 79 mg/dL (130-555); IGG SUBCLASS 3 35 mg/dL (15-102); IGG SUBCLASS 4 8 mg/dL (2-96); IMMUNOGLOBULIN G, QNT 427 mg/dL (700-1600)
[2017-08-04] VITALS (9 sets, daily range): BP systolic 135–160; BP diastolic 67–100
[2017-08-04 00:49] LABS: HEMATOCRIT 22.2 % (37.0-47.0); HEMOGLOBIN 7.2 g/dl (12.0-16.0)
[2017-08-04 06:43] LABS: CREATININE 1.44 mg/dL (0.55-1.02); POTASSIUM 3.3 mmol/L (3.5-5.1)
[2017-08-04 06:53] LABS: HEMATOCRIT 23.2 % (37.0-47.0); HEMOGLOBIN 7.3 g/dl (12.0-16.0); MEAN CELL VOLUME 93.5 fl (81.0-99.0); MEAN CORPUSCULAR HGB 29.4 pg (27.0-31.0); MEAN CORPUSCULAR HGB CONC 31.5 g/dl (33.0-37.0); MEAN PLATELET VOLUME 8.9 fl (9.6-12.3); PLATELET COUNT AUTOMATED 480 10*3/uL (130-400); RED BLOOD COUNT 2.48 10*6/uL (4.10-5.10); RED CELL DISTRI WIDTH 19.9 % (0-14.5); WHITE BLOOD COUNT 15.8 10*3/uL (4.8-10.8)
[2017-08-04 07:57] LABS: BURR CELLS MODERATE; PLATELET SUFFICIENCY HIGH (NORMAL); SCHISTOCYTES FEW; TOTAL CELLS COUNTED 100 #CELLS
[2017-08-04 15:05] LABS: ACID FAST SPEC PROCESSING Concentration (.)
[2017-08-04 18:03] LABS: IMMUNOGLOBULIN IgE 002170 <2 IU/mL (0-100)
[2017-08-05] VITALS: BP 133/92
[2017-08-05] MEDS ORDERED: AMLODIPINE BESY10 MG PO (07:12)
[2017-08-05 07:47] LABS: MEAN CORPUSCULAR HGB 28.8 pg (27.0-31.0); MEAN CORPUSCULAR HGB CONC 32.5 g/dl (33.0-37.0); MEAN PLATELET VOLUME 9.1 fl (9.6-12.3); PLATELET COUNT AUTOMATED 513 10*3/uL (130-400); RED BLOOD COUNT 3.44 10*6/uL (4.10-5.10); RED CELL DISTRI WIDTH 21.2 % (0-14.5); WHITE BLOOD COUNT 13.1 10*3/uL (4.8-10.8)
[2017-08-05 07:50] LABS: HEMATOCRIT 30.5 % (37.0-47.0); HEMOGLOBIN 9.9 g/dl (12.0-16.0); MEAN CELL VOLUME 88.7 fl (81.0-99.0)
[2017-08-05 07:58] LABS: CREATININE 1.32 mg/dL (0.55-1.02)
[2017-08-05 08:00] VITALS: BP 156/82
[2017-08-05 08:15] LABS: POTASSIUM 4.4 mmol/L (3.5-5.1)
[2017-08-05 08:30] LABS: ACANTHOCYTES FEW; BURR CELLS MODERATE; PLATELET SUFFICIENCY HIGH (NORMAL); POLYCHROMASIA SLIGHT; TOTAL CELLS COUNTED 100 #CELLS; TOXIC GRANULATION SLIGHT
== END 2017-08-05 15:19 | DRG 853 ==
LOC: ED 14:11 → 4E 16:18 → EDHOLD 16:18 → 4E 16:54
PROVIDERS: Internal Medicine; Internal Medicine Critical Care Medicine; Internal Medicine Gastroenterology; Physician Assistant; Student in an Organized Health Care Education/Training Program
PROC: 02HV33Z Insertion of Infusion Device into Superior Vena Cava, Percutaneous Approach (ICD-10-PCS; principal; 2017-08-02)
PROC: 0B9B8ZZ Drainage of Left Lower Lobe Bronchus, Via Natural or Artificial Opening Endoscopic (ICD-10-PCS; 2017-08-03)
PROC: 0B988ZZ Drainage of Left Upper Lobe Bronchus, Via Natural or Artificial Opening Endoscopic (ICD-10-PCS; 2017-08-03)
PROC: 0B978ZZ Drainage of Left Main Bronchus, Via Natural or Artificial Opening Endoscopic (ICD-10-PCS; 2017-08-03)
PROC: 0B938ZZ Drainage of Right Main Bronchus, Via Natural or Artificial Opening Endoscopic (ICD-10-PCS; 2017-08-03)
PROC: 30233N1 Transfusion of Nonautologous Red Blood Cells into Peripheral Vein, Percutaneous Approach (ICD-10-PCS; 2017-08-03)
PROC: 0B998ZZ Drainage of Lingula Bronchus, Via Natural or Artificial Opening Endoscopic (ICD-10-PCS; 2017-08-03)
PROC: 0B9C8ZX Drainage of Right Upper Lung Lobe, Via Natural or Artificial Opening Endoscopic, Diagnostic (ICD-10-PCS; 2017-08-03)
PROC: 0B948ZZ Drainage of Right Upper Lobe Bronchus, Via Natural or Artificial Opening Endoscopic (ICD-10-PCS; 2017-08-03)
PROC: 0B968ZZ Drainage of Right Lower Lobe Bronchus, Via Natural or Artificial Opening Endoscopic (ICD-10-PCS; 2017-08-03)
PROC: 0B958ZZ Drainage of Right Middle Lobe Bronchus, Via Natural or Artificial Opening Endoscopic (ICD-10-PCS; 2017-08-03)
PROC: 0B918ZZ Drainage of Trachea, Via Natural or Artificial Opening Endoscopic (ICD-10-PCS; 2017-08-03)
DX: A41.9 Sepsis, unspecified organism (principal); N17.0 Acute kidney failure with tubular necrosis; E43 Unspecified severe protein-calorie malnutrition; G93.41 Metabolic encephalopathy; J15.0 Pneumonia due to Klebsiella pneumoniae; E87.2 Acidosis; A04.72 Enterocolitis due to Clostridium difficile, not specified as recurrent; E87.0 Hyperosmolality and hypernatremia; J18.9 Pneumonia, unspecified organism; I50.32 Chronic diastolic (congestive) heart failure; K92.2 Gastrointestinal hemorrhage, unspecified; N39.0 Urinary tract infection, site not specified; E87.1 Hypo-osmolality and hyponatremia; I13.0 Hypertensive heart and chronic kidney disease with heart failure and stage 1 through stage 4 chronic kidney disease, or unspecified chronic kidney disease; Z68.1 Body mass index [BMI] 19.9 or less, adult; I95.9 Hypotension, unspecified; E87.8 Other disorders of electrolyte and fluid balance, not elsewhere classified; E03.8 Other specified hypothyroidism; E03.9 Hypothyroidism, unspecified; E87.6 Hypokalemia; E83.42 Hypomagnesemia; E83.39 Other disorders of phosphorus metabolism; E78.2 Mixed hyperlipidemia; Z96.641 Presence of right artificial hip joint; E86.0 Dehydration; D50.9 Iron deficiency anemia, unspecified; E66.9 Obesity, unspecified; R62.7 Adult failure to thrive; N18.3 Chronic kidney disease, stage 3 (moderate); Z66 Do not resuscitate; Z51.5 Encounter for palliative care; Z79.899 Other long term (current) drug therapy; Z79.82 Long term (current) use of aspirin; Z87.891 Personal history of nicotine dependence; Z82.49 Family history of ischemic heart disease and other diseases of the circulatory system; Z86.73 Personal history of transient ischemic attack (TIA), and cerebral infarction without residual deficits

== ENCOUNTER 2017-08-23 12:53 | Inpatient (IN) | payer OTHER, MEDICAID ==
[2017-08-23] VITALS (19 sets, daily range): BP systolic 171–218; BP diastolic 76–107
[~2017-08-23] VITALS: Ht 160 cm; Wt 49.9 kg
--- NOTE | ~2017-08-23 | PR ---
[place], [place] PROGRESS NOTE [id number] #: [id number] ROOM: 424 DOCTOR: ABIEL DASH MD BIRTHDATE: [birth year] DOS: 08/25/2017 SUBJECTIVE: The patient feeling about the same. She has no new complaints, just generalized weakness. OBJECTIVE: VITAL SIGNS: Blood pressure 130/84, heart rate of 87 beats per minute, breathing normally, afebrile. GENERAL APPEARANCE: The patient is alert and oriented x 3, in no visible distress, except for generalized weakness. HEENT AND NECK: Exam within normal limits. CARDIOVASCULAR SYSTEM: Heart rate is regular in rate and rhythm. S1 and S2 normally audible. LUNGS: Clear to auscultation. ABDOMEN: Soft, nontender. No obvious organomegaly. Bowel sounds are present. EXTREMITIES: Without significant cyanosis or edema. IMPRESSION: 1. The patient with acute gastrointestinal bleed with endoscopy showing severe duodenitis, duodenal ulcer and gastritis. 2. Acute blood loss anemia with hemoglobin drop to 7.7 from 9.5 yesterday. The patient has been transfused with blood in the past and now we will continue to check hemoglobin on daily basis and transfuse as necessary. 3. Chronic Clostridium difficile colitis, improved. 4. Hypothyroidism, treated with supplements. 5. Benign essential hypertension, treated and controlled. 6. Severe protein calorie malnutrition. The patient followed by Dietary. 7. Adult failure to thrive. The patient working with physical therapy. 8. Precipitous drop in hemoglobin, improved after blood transfusion. ABIEL DASH MD CM:PNTRANS [id number] ABIEL DASH MD 08/26/17 0247 interface
--- NOTE | ~2017-08-23 | DS ---
[place], [place] DISCHARGE SUMMARY NAME: DOV MOLINA UNIT #: [id number] ROOM: 424 DOCTOR: MANUEL BUCKLEYJONAS BIRTHDATE: [birth year] DOS: 08/26/2017 DIAGNOSES: 1. Precipitous drop in hematocrit. 2. Duodenal ulcer. 3. Status post endoscopy. 4. Chronic Clostridium difficile colitis. 5. Hypothyroidism. 6. Benign hypertension. 7. Chronic small vessel disease with metabolic encephalopathy. 8. Electrolyte abnormalities, which have all corrected. 9. Protein-calorie malnutrition. 10. Mixed hyperlipidemia. 11. Moderate cigarette smoker. 12. Mixed hyperlipidemia. 13. Chronic kidney disease. MEDICATIONS: She is on currently are Protonix 40 mg daily for a month, Carafate 1 gram q.i.d., amlodipine 10 daily, potassium 20 daily, simvastatin 20 daily, iron 325 daily, vitamin D 4000 units daily, Tylenol 1000 mg t.i.d. p.r.n., Florastor 250 b.i.d., vancomycin 250 three times a day for one more week and then 250 twice a day for 2 weeks and then discontinue, mag oxide 400 b.i.d., levothyroxine 150 mcg daily, folic acid 1 mg daily. HOSPITAL COURSE: This patient is 67 years old, very well known to us, had routine blood work at the correction and hemoglobin was only 4. So, the patient was sent out. Given a blood transfusion. After the blood transfusion was given, the patient was started on Protonix after serial H and H's were checked. Iron infusions were added. Dr. Joe did see the patient. An endoscopy was performed, which showed multiple duodenal ulcers. The patient also had elevated blood pressure. The Norvasc dose was increased. Because of the recent C. diff infection, vancomycin has been continued. The patient's diarrhea seems to be improving when compared to her last stay here. This morning, the patient is overall stable. Hemoglobin has dropped minimally from 7.7-7.6. This will be continued to be followed up at the correction. Plan is to discharge her to [facility]. DIET: Elizabeth. The patient will have a basic metabolic panel on Wednesday as well as a CBC. [place], [place] DISCHARGE SUMMARY NAME: DOV MOLINA UNIT #: [id number] ROOM: 424 DOCTOR: JONAS JACKSON MD BIRTHDATE: [birth year] JONAS JACKSON MD CM:MIKE [id number] JONAS JACKSON MD 08/26/17 1028 interface
--- NOTE | ~2017-08-23 | PR ---
[place], [place] PROGRESS NOTE [id number] UN[facility] #: [id number] ROOM: 424 DOCTOR: JONAS JACKSON MD BIRTHDATE: [birth year] DOS: SUBJECTIVE: The patient is doing fine without any new complaints. Appreciate Dr. Joe's input. OBJECTIVE: VITAL SIGNS: Graphic trend shows a blood pressure of 136/77, pulse of 87, respirations 16, temperature 97.4. LUNGS: Diminished breath sounds, clear. HEART: Regular. ABDOMEN: Soft, nontender. EXTREMITIES: Without any edema. LABORATORY DATA: This morning shows a WBC count of 8.1, hemoglobin of 7.6, which is a very slight drop from 7.7 yesterday. So, labs are relatively stable for this patient. She has already completed 3 units of an iron infusion today, and then the patient should be able to go back to the senior care and continued treatment plan with proton pump inhibitors. ASSESSMENT: 1. Benign hypertension, much controlled on her medications. 2. Chronic Clostridium difficile colitis, already continue vancomycin, should be on 3 times a day dosing. JONAS JACKSON MD CM:PNTRANS [id number] JONAS JACKSON MD 08/26/17 1048 interface
--- NOTE | ~2017-08-23 | CON ---
[place], [place] REPORT OF CONSULTATION [id number] UNIT #: [id number] ROOM: 424 DOCTOR: SUSI BUCKLEYGIGI BIRTHDATE: [birth year] DOS: 08/23/2017 GASTROENDOSCOPIC CONSULTATION REPORT HISTORY OF PRESENT ILLNESS: The patient was presented from intermediate after being found to be profoundly anemic, as well being nauseated at the time of admission to the hospital. I was called by Emergency Department for the management of the above. Her CBC at the time of admission shows white blood cell 9, H and H of 4.5 and 15 with a platelet count of 492, macrocytic nearly. Comprehensive metabolic panel: BUN and creatinine 19 and 1.3, GFR 58. Calcium is 7.8, which is corresponding with her low albumin of 2.0. Liver function tests appear to be normal. Lactic acid is 0.9. INR is 0.9. Comprehensive metabolic panel was reassessed, her BNP is 9000+. Lipase normal. C-reactive protein normal. The latest H and H repeat again confirms 4 and 15 respectively. A chest x-ray in the Emergency Room, no acute cardiopulmonary pathology was identified. PAST MEDICAL HISTORY: The patient with sepsis. Her C. diff was negative eventually, descending colon suggested colitis and urethral stent history. Past medical history associated with GI bleed, sepsis, thrombocytopenia, hypochloremia, hypophosphatemia, renal insufficiency in the past, hypertension, chronic CHF, severe malnutrition all has been recognized in past. Past medical history also associated with tobacco dependency and CVA. PAST SURGICAL HISTORY: Pericardiectomy as well as a minor surgeries on hand. MEDICATIONS: Medication list has been reviewed. She has been on iron and ferrous sulfate in past. ALLERGIES: To no known medications. SOCIAL HISTORY: Smoker in the past, 1 pack for past 40 years. FAMILY HISTORY: Noncontributory. REVIEW OF SYSTEMS: HEENT: Denies double vision or blurred vision. RESPIRATORY: He has no shortness of breath. CARDIOVASCULAR: Denies chest pain. DIGESTIVE SYSTEM: GI blood loss. PHYSICAL EXAMINATION: GENERAL: A frail patient. VITAL SIGNS: Stable. HEENT: Head is normocephalic, nontraumatic. Eyes: Pupils are round and reactive. Sclerae nonicteric. Conjunctivae pink. Mouth: Edentulous. No aphthae ulcer. NECK: Supple. LUNGS: Few scattered rhonchi, bibasilar. HEART: Normal sinus rhythm, no gallop, no murmur. [place], [place] REPORT OF CONSULTATION NAME: DOV MOLINA UNIT #: [id number] ROOM: [facility] DOCTOR: GIGI GOLDMAN MD BIRTHDATE: [birth year] ABDOMEN: Soft. No hepato-organomegaly. Bowel sounds within normal limits. EXTREMITIES: Dry. NEUROLOGIC: Alert and slow orientation. IMPRESSION: Chronic anemia. PLAN AND DISCUSSION: Transfusion and stabilization. We have to be careful about the transfusion to go slow because the patient is in congestive heart failure as well and may be noted she is going to be sent to the nursing staff to give her 20 mg of Lasix post-transfusion before they give her another unit. A slow transfusion is needed in this management. OTHER ADJUNCTIVE DIAGNOSES: As outlined above. After stabilization, we are going to consider endoscopic assessment. GIGI GOLDMAN MD CM:CONSTR:REPORT OF CONSULTATION 1623 09/01/17 0802 interface
--- NOTE | ~2017-08-23 | O ---
[place], [place] OPERATIVE NOTE NAME: DOV MOLINA UNIT #: [id number] ROOM: 424 DOCTOR: SUSI BUCKLEY,GIGI BIRTHDATE: [birth year] DOS: 08/25/2017 INDICATIONS: A 67-year-old patient who presented with GI bleed, guaiac positivity, undergoing investigation. PROCEDURE: Today's procedure part of investigation is panendoscopy plus biopsy. PREMEDICATION: Propofol. SCOPE: Olympus forward-viewing gastroscope Q10 video. REPORT: After putting the patient in left lateral position and application of lubricant to the scope, the scope was introduced; thereafter, under direct visualization, I advanced through the length of esophagus without difficulty into gastric pouch into duodenal bulb. So far, gastritis was noticed. Duodenal bulb shows severe duodenitis and duodenal ulcer in anterior wall not bleeding. Biopsies were obtained from duodenum. Photographic series was done. The patient extubated, tolerated the procedure well. IMPRESSION: Severe duodenitis, duodenal ulcer, gastritis. PLAN AND DISCUSSION: PPI therapy and clinical reassessment. GIGI GOLDMAN MD CM:OPRECORD:OPERATIVE NOTE [id number] GIGI GOLDMAN MD 09/01/17 0800 interface
--- NOTE | ~2017-08-23 | WRIGHTHP ---
[place], [place] PATIENT HISTORY AND PHYSICAL EXAM NAME: DOV MOLINA [facility] #: [id number] UNIT #: [id number] ROOM: [facility] DOCTOR: JONAS JACKSON MD BIRTHDATE: [birth year] DOS: 08/23/2017 HISTORY OF PRESENT ILLNESS: The patient is 67 years old. The patient had routine blood work at the [facility] and was found to be extremely anemic and so was sent to the Emergency Room. The patient does not have any complaints this morning. She was admitted to the ICU, was given transfusion. Hemoglobin has come up. Denies any chest pains, palpitations or shortness of breath. Does not have any abdominal pain. She has occasional diarrhea in the mornings, but does not have any abdominal distention. His appetite is fair and is eating well. PAST MEDICAL HISTORY: Significant for: 1. Recent Clostridium difficile colitis. 2. Recent bilateral pneumonia. 3. Metabolic acidosis and respiratory alkalosis from diarrhea. 4. Hypothyroidism. 5. Benign hypertension. 6. Chronic small vessel disease with metabolic encephalopathy. 7. Hyponatremia, hypokalemia, hypochloremia, hypophosphatemia, hypomagnesemia, protein-calorie malnutrition. 8. Hyperlipidemia. 9. Chronic kidney disease and moderate cigarette smoker. MEDICATIONS: Medications that the patient has been admitted with are iron supplements, amlodipine, vitamin D, folic acid, levothyroxine, mag oxide, potassium, simvastatin, vancomycin, and Florastor. SOCIAL HISTORY: Smoker, does not use any alcohol. PHYSICAL EXAMINATION: GENERAL: The patient is awake and alert and oriented, is afebrile. VITAL SIGNS: Blood pressure is 132/70, pulse of 76, and respirations 14. LUNGS: Diminished breath sounds. HEART: Regular. ABDOMEN: Obese, soft, nontender. EXTREMITIES: Without any edema. ASSESSMENT AND PLAN: 1. The patient is admitted with severe precipitous drop in hematocrit. Hemoglobin on admission was pretty low. The patient was transfused with 2 units of packed red blood cell. The hemoglobin has come up from 4.5 to 9.5. The patient had a consultation with Dr. Joe and possibly will undergo a colonoscopy. 2. Recent colitis, most likely Clostridium difficile. Continue vancomycin until it is finished. 3. Benign hypertension, poorly controlled. Norvasc was increased. 4. Hypothyroidism, on medications. [place], [place] PATIENT HISTORY AND PHYSICAL EXAM NAME: DOV MOLINA UNIT #: [id number] ROOM: [facility] DOCTOR: JONAS AJCKSON MD BIRTHDATE: [birth year] JONAS JACKSON MD CM:HISPHYS:PATIENT HISTORY AND PHYSICAL EXAMINATION 0750 7 JONAS JACKSON MD 08/24/17 0817 interface
[~2017-08-23 12:53] MED LIST changes: +AMLODIPINE BESY10 MG PO; +DIGESTIVE PROB250 MG PO; +FLORASTOR250 MG PO; +IBU600 M1 PO; +IBUPROFEN600 MG PO; +POTASSIUM CHLO10 ME5 PO; +POTASSIUM CHLO20 ME3 PO; +TOPROL XL50 M1 PO; +TYLENOL EXTRA500 M2 PO; +VITAMIN D31000 UNI1 PO; +[UNRECOGNIZED DRUG - OTHER] PO
[2017-08-23 13:47] LABS: MEAN CELL VOLUME 104.8 fl (81.0-99.0); MEAN CORPUSCULAR HGB 30.8 pg (27.0-31.0); MEAN CORPUSCULAR HGB CONC 29.4 g/dl (33.0-37.0); PLATELET COUNT AUTOMATED 478 10*3/uL (130-400); RED BLOOD COUNT 1.46 10*6/uL (4.10-5.10); RED CELL DISTRI WIDTH 22.3 % (0-14.5); WHITE BLOOD COUNT 7.8 10*3/uL (4.8-10.8)
[2017-08-23 13:54] LABS: ACT PARTIAL THROMBO TIME 21.1 SECONDS (20.8-31.5); INTERNATIONAL NORM RATIO 0.9 (2.0-3.5)
[2017-08-23 14:03] LABS: ALKALINE PHOSPHATASE 57 U/L (45-117); BUN 19 mg/dl (7-24); CHLORIDE 111 mmol/L (98-107); CREATININE 1.04 mg/dL (0.55-1.02); LIPASE 133 U/L (73-393); POTASSIUM 4.4 mmol/L (3.5-5.1); SGOT/AST 23 IU/L (3-35); SGPT/ALT 20 U/L (12-78); SODIUM 140 mmol/L (136-145); TOTAL PROTEIN 4.7 gm/dL (6.4-8.2)
[2017-08-23 14:05] LABS: TROPONIN I < 0.015 ng/ml (<0.045)
[2017-08-23 14:07] LABS: BASOPHILS 2 % (0-1); TOTAL CELLS COUNTED 100 #CELLS
[2017-08-23 14:08] LABS: PLATELET SUFFICIENCY HIGH (NORMAL); POLYCHROMASIA SLIGHT
[2017-08-23 14:11] LABS: HEMATOCRIT 15.3 % (37.0-47.0); HEMOGLOBIN 4.5 g/dl (12.0-16.0)
[2017-08-23] MEDS ORDERED: FIRVANQ50 MG/1 ML PO ×2 (17:36→17:45)
[2017-08-23] MEDS ORDERED: NATURE'S BLEND F1 MG PO (17:37)
[2017-08-23] MEDS ORDERED: MAGOX 400400 MG PO (17:39)
[2017-08-23] MEDS ORDERED: LEVO-T150 MCG PO (17:40)
[2017-08-24] MEDS ORDERED: TOPROL XL50 M1 PO (03:32)
[2017-08-24 04:00] VITALS: BP 205/101
[2017-08-24 04:54] VITALS: BP 178/86
[2017-08-24 06:06] LABS: HEMOGLOBIN 9.5 g/dl (12.0-16.0)
[2017-08-24 06:12] LABS: BUN 15 mg/dl (7-24); CHLORIDE 105 mmol/L (98-107); CREATININE 0.95 mg/dL (0.55-1.02); SODIUM 139 mmol/L (136-145)
[2017-08-24 06:15] LABS: POTASSIUM 3.3 mmol/L (3.5-5.1); TROPONIN I < 0.015 ng/ml (<0.045)
[2017-08-24 08:00] VITALS: BP 148/80
[2017-08-24] MEDS ORDERED: AMLODIPINE BES2.5 MG PO (08:44)
[2017-08-24 16:00] VITALS: BP 150/80
[2017-08-24 20:00] VITALS: BP 160/74
[2017-08-25] VITALS (9 sets, daily range): BP systolic 130–189; BP diastolic 76–86
[2017-08-25 07:00] LABS: BASO # 0.1 10*3/uL (0.0-0.1); BASO % 0.9 % (0.0-1.0); EOS # 0.2 10*3/uL (0.0-0.4); EOS % 3.1 % (1.0-4.0); HEMATOCRIT 25.2 % (37.0-47.0); HEMOGLOBIN 7.7 g/dl (12.0-16.0); LYMPH # 2.1 10*3/uL (1.3-4.4); LYMPH % 30.5 % (27.0-41.0); MEAN CORPUSCULAR HGB CONC 30.6 g/dl (33.0-37.0); MEAN PLATELET VOLUME 8.9 fl (9.6-12.3); MONO # 0.7 10*3/uL (0.1-1.0); NEUT # 3.6 10*3/uL (2.3-7.9); NEUT % 53.5 % (47.0-73.0); PLATELET COUNT AUTOMATED 377 10*3/uL (130-400); RED BLOOD COUNT 2.57 10*6/uL (4.10-5.10); RED CELL DISTRI WIDTH 21.4 % (0-14.5); WHITE BLOOD COUNT 6.7 10*3/uL (4.8-10.8)
[2017-08-25 07:05] LABS: MEAN CELL VOLUME 98.1 fl (81.0-99.0)
[2017-08-25 07:31] LABS: CREATININE 1.12 mg/dL (0.55-1.02)
[2017-08-25 07:34] LABS: POTASSIUM 4.5 mmol/L (3.5-5.1)
[2017-08-26] VITALS: BP 136/77
[2017-08-26 06:45] LABS: BASO # 0.1 10*3/uL (0.0-0.1); BASO % 0.7 % (0.0-1.0); EOS # 0.2 10*3/uL (0.0-0.4); EOS % 2.8 % (1.0-4.0); HEMATOCRIT 24.8 % (37.0-47.0); HEMOGLOBIN 7.6 g/dl (12.0-16.0); LYMPH # 1.9 10*3/uL (1.3-4.4); LYMPH % 23.6 % (27.0-41.0); MEAN CORPUSCULAR HGB CONC 30.6 g/dl (33.0-37.0); MEAN PLATELET VOLUME 8.9 fl (9.6-12.3); MONO # 0.9 10*3/uL (0.1-1.0); MONO % 10.6 % (3.0-9.0); NEUT % 61.3 % (47.0-73.0); PLATELET COUNT AUTOMATED 385 10*3/uL (130-400); RED BLOOD COUNT 2.53 10*6/uL (4.10-5.10); WHITE BLOOD COUNT 8.1 10*3/uL (4.8-10.8)
[2017-08-26 06:58] LABS: BUN 20 mg/dl (7-24); CHLORIDE 109 mmol/L (98-107); CREATININE 0.91 mg/dL (0.55-1.02); POTASSIUM 4.2 mmol/L (3.5-5.1); SODIUM 141 mmol/L (136-145)
[2017-08-26] MEDS ORDERED: AMLODIPINE BESY10 MG PO (07:39)
[2017-08-26] MEDS ORDERED: CARAFATE1 GM PO (07:39)
[2017-08-26] MEDS ORDERED: PROTONIX40 MG PO (07:39)
[2017-08-26] MEDS ORDERED: KLOR-CON M2020 ME1 PO (07:39)
[2017-08-26 08:00] VITALS: BP 106/70; BP 168/72
== END 2017-08-26 13:40 | DRG 377 ==
LOC: ED 12:53 → 4E 14:43 → ICCU 14:43 → EDHOLD 14:43 → ICCU 15:50 → 4E 08-24 17:02
PROVIDERS: Emergency Medicine; Internal Medicine; Internal Medicine Gastroenterology
PROC: 30233N1 Transfusion of Nonautologous Red Blood Cells into Peripheral Vein, Percutaneous Approach (ICD-10-PCS; principal; 2017-08-23)
PROC: 0DB98ZX Excision of Duodenum, Via Natural or Artificial Opening Endoscopic, Diagnostic (ICD-10-PCS; 2017-08-25)
DX: K29.71 Gastritis, unspecified, with bleeding (principal); G93.41 Metabolic encephalopathy; E43 Unspecified severe protein-calorie malnutrition; A04.72 Enterocolitis due to Clostridium difficile, not specified as recurrent; R71.0 Precipitous drop in hematocrit; I50.32 Chronic diastolic (congestive) heart failure; I13.0 Hypertensive heart and chronic kidney disease with heart failure and stage 1 through stage 4 chronic kidney disease, or unspecified chronic kidney disease; D62 Acute posthemorrhagic anemia; Z68.1 Body mass index [BMI] 19.9 or less, adult; K26.9 Duodenal ulcer, unspecified as acute or chronic, without hemorrhage or perforation; E03.9 Hypothyroidism, unspecified; E78.2 Mixed hyperlipidemia; N18.9 Chronic kidney disease, unspecified; Z96.641 Presence of right artificial hip joint; E66.9 Obesity, unspecified; R62.7 Adult failure to thrive; Z66 Do not resuscitate; Z51.5 Encounter for palliative care; K29.80 Duodenitis without bleeding; Z79.899 Other long term (current) drug therapy; Z86.73 Personal history of transient ischemic attack (TIA), and cerebral infarction without residual deficits; Z91.81 History of falling; Z87.891 Personal history of nicotine dependence; Z82.49 Family history of ischemic heart disease and other diseases of the circulatory system; Z81.1 Family history of alcohol abuse and dependence; Z87.01 Personal history of pneumonia (recurrent)

== ENCOUNTER 2019-12-16 18:56 | Inpatient (IN) | payer MEDICARE ==
[2019-12-16] VITALS (9 sets, daily range): BP systolic 123–146; BP diastolic 63–88
[~2019-12-16] VITALS: Ht 167.6 cm; Wt 51.9 kg
[~2019-12-16 18:56] MED LIST changes: +AMLODIPINE BES2.5 MG PO; +ATORVASTATIN CA10 M1 PO; +CARAFATE1 GM PO; +DECADRON4 MG PO; +FIRVANQ50 MG/1 ML PO; +KLOR-CON M2020 ME1 PO; +LEVO-T100 MCG PO; +MAGOX 400400 MG PO; +NATURE'S BLEND F1 MG PO; +PREDNISONE20 M1 PO; +PROTONIX40 MG PO; +SALINE NASAL SP88 ML NAS; +ZITHROMAX500 MG PO
[2019-12-16 19:25] LABS: ARTERIAL BLOOD GAS PH 7.428 (7.35-7.45)
[2019-12-16 19:26] LABS: ABG BASE EXCESS -6.8 mmol/L (-2.0-2.0)
[2019-12-16 20:00] LABS: MEAN CELL VOLUME 92.2 fl (81.0-99.0); MEAN CORPUSCULAR HGB 29.4 pg (27.0-31.0); MEAN CORPUSCULAR HGB CONC 31.9 g/dl (33.0-37.0); MEAN PLATELET VOLUME 8.9 fl (9.6-12.3); PLATELET COUNT AUTOMATED 597 10*3/uL (130-400); RED BLOOD COUNT 3.47 10*6/uL (4.10-5.10); RED CELL DISTRI WIDTH 18.4 % (0-14.5); WHITE BLOOD COUNT 15.2 10*3/uL (4.8-10.8)
[2019-12-16 20:10] LABS: ACT PARTIAL THROMBO TIME 41.6 SECONDS (20.0-32.1)
[2019-12-16 20:17] LABS: ALBUMIN 2.2 gm/dl (3.1-4.5); ALKALINE PHOSPHATASE 81 U/L (45-117); BUN 25 mg/dl (7-24); CHLORIDE 109 mmol/L (98-107); CREATININE 1.41 mg/dL (0.55-1.02); POTASSIUM 4.1 mmol/L (3.5-5.1); SGOT/AST 32 IU/L (3-35); SGPT/ALT 8 U/L (12-78); SODIUM 135 mmol/L (136-145); TOTAL PROTEIN 6.4 gm/dL (6.4-8.2)
[2019-12-16 20:18] LABS: TROPONIN I < 0.015 ng/ml (<0.045)
[2019-12-16 20:32] LABS: PLATELET SUFFICIENCY HIGH (NORMAL); POLYCHROMASIA SLIGHT; TOTAL CELLS COUNTED 100 #CELLS
[2019-12-16 20:33] LABS: BURR CELLS MODERATE
[2019-12-16 21:13] LABS: BILIRUBIN Negative (Negative); BLOOD 3+ (Negative); COLOR Yellow (Yellow); GLUCOSE Negative (Negative); KETONE Negative (Negative); LEUKO ESTERASE 3+ (Negative); NITRITE Negative (Negative); PH 5.5 (4.5-8.0); UROBILINOGEN 0.2 E.U./dl (0.0-1.0)
[2019-12-16 21:14] LABS: CLARITY Turbid (Clear)
[2019-12-16 21:18] LABS: BACTERIA 4+; WBC TNTC wbc/hpf (0-5)
[2019-12-17 01:31] VITALS: BP 95/58
[2019-12-17] MEDS ORDERED: IBU800 MG PO (01:33)
[2019-12-17] MEDS ORDERED: PRISTIQ50 MG PO (01:34)
[2019-12-17] MEDS ORDERED: PHENAZOPYRIDIN100 M1 PO (01:34)
[2019-12-17] MEDS ORDERED: MEGACE 40400 MG/10 PO (01:37)
[2019-12-17] MEDS ORDERED: BISACODYL10 MG R (01:38)
[2019-12-17] MEDS ORDERED: MILK OF MA400 MG/51 PO (01:39)
[2019-12-17 06:32] LABS: CREATININE 1.4 mg/dL (0.55-1.02)
[2019-12-17 06:33] LABS: POTASSIUM 3.1 mmol/L (3.5-5.1)
[2019-12-17 08:00] VITALS: BP 170/84
[2019-12-17 12:00] VITALS: BP 150/82
[2019-12-17 16:00] VITALS: BP 159/86
[2019-12-17 20:00] VITALS: BP 159/90
[2019-12-18] VITALS: BP 149/77
[2019-12-18 06:43] LABS: HEMATOCRIT 33.7 % (37.0-47.0); MEAN CELL VOLUME 94.1 fl (81.0-99.0); MEAN CORPUSCULAR HGB 29.3 pg (27.0-31.0); MEAN CORPUSCULAR HGB CONC 31.2 g/dl (33.0-37.0); MEAN PLATELET VOLUME 9.1 fl (9.6-12.3); PLATELET COUNT AUTOMATED 546 10*3/uL (130-400); RED BLOOD COUNT 3.58 10*6/uL (4.10-5.10); RED CELL DISTRI WIDTH 17.7 % (0-14.5); WHITE BLOOD COUNT 16.5 10*3/uL (4.8-10.8)
[2019-12-18 06:48] LABS: CREATININE 1.39 mg/dL (0.55-1.02); POTASSIUM 3.6 mmol/L (3.5-5.1)
[2019-12-18 07:41] LABS: BASOPHILS 1 % (0-1); PLATELET SUFFICIENCY HIGH (NORMAL); POLYCHROMASIA SLIGHT; TOTAL CELLS COUNTED 100 #CELLS
[2019-12-18 07:42] LABS: BURR CELLS MODERATE; SCHISTOCYTES FEW; TARGET CELLS FEW
[2019-12-18 08:00] VITALS: BP 170/80
[2019-12-18 16:00] VITALS: BP 137/90
[2019-12-18 20:00] VITALS: BP 162/92
[2019-12-18 23:00] VITALS: BP 178/85
[2019-12-19] VITALS: BP 161/90
[2019-12-19 06:38] LABS: CREATININE 1.59 mg/dL (0.55-1.02); POTASSIUM 4.1 mmol/L (3.5-5.1)
[2019-12-19 08:00] VITALS: BP 158/80
[2019-12-19 12:00] VITALS: BP 132/78
== END 2019-12-19 14:28 | disposition hospice, home (50) | DRG 189 ==
LOC: ED 18:56 → 4E 21:48 → EDHOLD 21:48 → 4E 22:06
PROVIDERS: Emergency Medicine Emergency Medical Services; ADMIT Internal Medicine; ATTEND Internal Medicine
PROC: 5A09357 Assistance with Respiratory Ventilation, Less than 24 Consecutive Hours, Continuous Positive Airway Pressure (ICD-10-PCS; principal; 2019-12-16)
PROC: 5A09357 Assistance with Respiratory Ventilation, Less than 24 Consecutive Hours, Continuous Positive Airway Pressure (ICD-10-PCS; 2019-12-17)
PROC: 5A09357 Assistance with Respiratory Ventilation, Less than 24 Consecutive Hours, Continuous Positive Airway Pressure (ICD-10-PCS; 2019-12-18)
PROC: 5A09357 Assistance with Respiratory Ventilation, Less than 24 Consecutive Hours, Continuous Positive Airway Pressure (ICD-10-PCS; 2019-12-19)
DX: J96.01 Acute respiratory failure with hypoxia (principal); N39.0 Urinary tract infection, site not specified; I13.0 Hypertensive heart and chronic kidney disease with heart failure and stage 1 through stage 4 chronic kidney disease, or unspecified chronic kidney disease; Z68.43 Body mass index [BMI] 50.0-59.9, adult; R65.10 Systemic inflammatory response syndrome (SIRS) of non-infectious origin without acute organ dysfunction; E87.6 Hypokalemia; Z66 Do not resuscitate; Z51.5 Encounter for palliative care; N18.30 Chronic kidney disease, stage 3 unspecified; Z20.828 Contact with and (suspected) exposure to other viral communicable diseases; E66.01 Morbid (severe) obesity due to excess calories; R31.9 Hematuria, unspecified; E03.9 Hypothyroidism, unspecified; E78.5 Hyperlipidemia, unspecified; I50.9 Heart failure, unspecified; Z87.891 Personal history of nicotine dependence; Z86.73 Personal history of transient ischemic attack (TIA), and cerebral infarction without residual deficits; Z82.49 Family history of ischemic heart disease and other diseases of the circulatory system; Z68.20 Body mass index [BMI] 20.0-20.9, adult

== ENCOUNTER 2019-12-19 15:01 | Inpatient (IN) | payer OTHER, MEDICARE ==
[~2019-12-19] VITALS: Ht 167.6 cm; Wt 51.9 kg
[~2019-12-19 15:01] MED LIST changes: +BISACODYL10 MG R; +IBU800 MG PO; +MEGACE 40400 MG/10 PO; +MILK OF MA400 MG/51 PO; +PHENAZOPYRIDIN100 M1 PO; +PRISTIQ50 MG PO
--- NOTE | 2019-12-19 15:07 | NUR ---
Time: 1506 A 69 year old FEMALE admitted to under services of DR. JONAS JACKSON. Pt. arrived via OTHER from ER. Chief complaint: COMFORT CARE MEASURES. MELISSA SKINNER A
[2019-12-19 16:00] VITALS: BP 150/84
--- NOTE | 2019-12-19 16:41 | NUR ---
MORPHINE DRIP INITIATED PER ORDERS. VERIFIED AT BEDSIDE BY 2RNS, MYSELF AND CHICO. WILL MONITOR FOR EFFECTIVENESS. CALL LIGHT IN REACH. FAMILY AT BEDSIDE.
--- NOTE | 2019-12-19 18:09 | NUR ---
PT STILL LABORED WITH BREATHING. RESPERATIONS 30 BPM. NOTIFIED. ORDERED TO INCREASE DRIP TO 4MG/HR. SEE ORDERS. WILL MONITOR FOR EFFECTIVENESS.
--- NOTE | 2019-12-19 18:55 | NUR ---
MORE COMFORTABLE AT THIS TIME WITH MORPHINE RUNNING AT 4MG/HR. RESPIRATIONS MORE RELAXED AT THIS TIME. 26 BPM.
[2019-12-19 20:00] VITALS: BP 144/88
--- NOTE | 2019-12-19 20:00 | NUR ---
LETHARGIC, RESP. 12BPM LUNG SOUNDS DIMINISHED. NOT EDEMA.
[2019-12-20] VITALS: BP 114/75
--- NOTE | 2019-12-20 | NUR ---
PATIENT HAS BEEN REPOSITIONED Q2H. RESP. 16BPM BP DECREASING. WILL CONTINUE TO MONITOR.
--- NOTE | 2019-12-20 01:00 | NUR ---
CONDITION UNCHANED. WILL CONTINUE TO MONITOR.
[2019-12-20 02:00] VITALS: BP 102/58
--- NOTE | 2019-12-20 02:20 | NUR ---
PATIENT STATUS CHANGED RESP. SLOWER WITH PERIODS OF APNEA LASTING ABOUT 10 SECONDS, HEART RATE HAS SLOWED AND ALSO BP IS GETTING LOWER. RESP. PATIENT MADE COMFORTABLE AND PLACED ON RIGHT SIDE.
--- NOTE | 2019-12-20 02:32 | NUR ---
CALLED KARTIK AND GARCÍA PATIENTS SISTERS AND NOTIFIED THEM OF CHANGE IN PATIENT STATUS. BOTH ARE COMING TO HOSPITAL AND NURSING [employer] AWARE AND SECURITY.
--- NOTE | 2019-12-20 03:04 | NUR ---
FAMILY HERE AT BEDSIDE. PATIENT STILL HAVING PERIODS OF APNEA SOME LASTING LONG 30 SECONDS.
--- NOTE | 2019-12-20 03:07 | NUR ---
24 HR chart check completed.
--- NOTE | 2019-12-20 04:56 | NUR ---
FAMILY CONTINUES AT BEDSIDE. NO CHANGE, PATIENT CONTINUES TO HAVE PERIODS OF APNEA OF 30 SECONDS OR MORE.
--- NOTE | 2019-12-20 05:45 | NUR ---
FAMILY CONTINUES AT BEDSIDE. PATIENT CONTINUES SAME APNEAC EPISODES.
--- NOTE | 2019-12-20 12:07 | NUR ---
family at beside, pt resp 3 per minute, shallow, hr 76.
--- NOTE | 2019-12-20 15:35 | NUR ---
24 HR CHART CHECK COMPLETE.
[2019-12-20 16:00] VITALS: BP 105/54
[2019-12-20 20:00] VITALS: BP 106/66
--- NOTE | 2019-12-20 20:00 | NUR ---
FAMILY AT BEDSIDE. RESP BETWEEN 6-9 BPM. PATIENT UNRESPONSIVE. WARM BLANKETS PLACED ON PATIENT FOR COMFORT. GENERALIZED EDEMA RIGHT LEG WORSE THAN LEFT. WILL CONTINUED TO MONITOR.
[2019-12-21] VITALS: BP 105/61
--- NOTE | 2019-12-21 00:23 | NUR ---
PERIODS OF APNEA LASTING ABOUT 44SECONDS AT A TIME. RESP. MOIST ATROPINE GIVEN SEE APR.
[2019-12-21 03:30] VITALS: BP 101/52
--- NOTE | 2019-12-21 03:30 | NUR ---
VITAL SIGNS TAKEND PER FAMILY REQUEST. 96.3 TYMPANIC,HR 89 BPM, RESP 9 BPM WITH PERIODS OF APNEA, BP 101/52. PULSE OX 97% O2 12L HIGH FLOW. ATROPINE EFFECTIVE FOR MOIST RESP. FAMILY WENT HOME AND TO CALL IF ANYTHING HAPPENS. PATIENT CHECKED AND DRY. REPOSITIONED FOR COMFORT. TRIED TO DO MOUTH CARE BUT PATIENT CLINCHED HER MOUTH CLOSED ALSO TRIED TO CHECK PUPILS AND THEY ARE STILL REACTIVE BUT PATIENT SQUEEZED EYES CLOSED. WILL CONTINUE TO MONITOR.
--- NOTE | 2019-12-21 04:00 | NUR ---
PATIENT CONDITION STILL REMAINS SAME. WILL CONTINUE TO MONITOR
--- NOTE | 2019-12-21 04:45 | NUR ---
PATIENT REMAINS SAME. WILL MONITOR.
--- NOTE | 2019-12-21 06:00 | NUR ---
PATIENT CONTINUES SAME CONDITION. WILL CONTINUE TO MONITOR.
--- NOTE | 2019-12-21 07:00 | NUR ---
ARRIVED ON SHIFT, REPORT RECEIVED FROM OFF GOING NURSE, ASSUMED CARE OF PATIENT.
--- NOTE | 2019-12-21 07:25 | NUR ---
DOWN TO PATIENTS ROOM, INTRODUCED SELF TO PATIENT, BED IN LOW POSITION, WHEEL LOCKS ENGAGED, BED ALARM ON, SIDE RAILS UP X 2 FOR TURNING AND REPOSITIONING PATIENT IS UN-RESPONSIVE, IV MORPHINE INFUSING AT 4MG/4CC HOUR, PATIENT HAVING 20-40 SECOND PERIODS OF APNEA WITH ACCESSORY MUSCLE USE, WHITE BOARD UP[DATED.
[2019-12-21 08:00] VITALS: BP 27/54
--- NOTE | 2019-12-21 11:43 | NUR ---
Shift chart check completed, NO CHANGES.
--- NOTE | 2019-12-21 14:48 | NUR ---
IN TO SEE PATIENT, RESPIRATIONS HAVE CEASED, CALLED IN 2ND NURSE CHICO TO VERIFY.LIFE [facility]ANK NOTIIFIED, ID NUMBER [id number]. NURSING WASHING MACHINE LOADER AZALIA, NOTIFIED, DR. MOSS NOTIFIED.
--- NOTE | 2019-12-21 15:30 | NUR ---
CALL PLACED TO [facility], PER [employer] ADMINISTRATOR , THEY WILL BE HERE IN ABOUT 30 MINUTES.
--- NOTE | 2019-12-21 16:30 | NUR ---
[facility] HERE TO REMOVE PATIENTS BODY, FAMILY AT BEDSIDE, IV REMOVED, CALL PLACED TO [facility] TO NOTIFY OF , PHONE [facility]INGS [employer] RINGS WITHOUT ANSWER, THEN STOPS.
== END 2019-12-21 14:48 | disposition expired | DRG 193 ==
LOC: 4E 15:01
PROVIDERS: ADMIT Internal Medicine; ATTEND Internal Medicine
DX: J18.9 Pneumonia, unspecified organism (principal); J96.90 Respiratory failure, unspecified, unspecified whether with hypoxia or hypercapnia; E46 Unspecified protein-calorie malnutrition; N18.9 Chronic kidney disease, unspecified; E78.2 Mixed hyperlipidemia; Z51.5 Encounter for palliative care; Z68.20 Body mass index [BMI] 20.0-20.9, adult